=== PATIENT | female | born 1960 | race Caucasian/White ===

== ENCOUNTER → 2020-01-20 15:02 | Outpatient (BNVA) | payer OTHER, SELFPAY | PROVIDERS: PCP Hospitalist; Visit Provider Student in an Organized Health Care Education/Training Program | DX: Z76.89 Persons encountering health services in other specified circumstances (principal) ==

== ENCOUNTER → 2020-02-21 13:05 | Outpatient (BNVA) | payer OTHER, SELFPAY | PROVIDERS: PCP Hospitalist; Visit Provider Orthopaedic Surgery | DX: G56.02 Carpal tunnel syndrome, left upper limb (principal); G56.01 Carpal tunnel syndrome, right upper limb | CPT/HCPCS: 99202 ==

== ENCOUNTER 2020-02-29 10:34 | Outpatient (REF) | payer OTHER, SELFPAY ==
--- NOTE | 2020-02-29 13:47 | XR_ITS ---
EXAMINATION: XR SHOULDER, RIGHT CLINICAL INFORMATION: Right shoulder pain. COMPARISON: 09/21/2019 TECHNIQUE: Three views of the right shoulder. FINDINGS: There is no evidence of acute fracture or dislocation of the right shoulder. No evidence of calcific tendinitis. There is some irregularity and spurring seen about the site of insertion of the supraspinatus tendon on the humerus. The glenohumeral joint space is maintained. No widening of the coracoclavicular space is seen. No superior subluxation of the humeral head is identified. XR/XR shoulder RT min 2V IMPRESSION: No acute fracture, dislocation, or calcific tendinitis of the right shoulder. Spurring about the site of insertion of the supraspinatus tendon.
== END 2020-02-29 10:35 | disposition home or self-care (01) ==
LOC: HO.HOSX 10:34
PROVIDERS: Visit Provider Orthopaedic Surgery
DX: M25.511 Pain in right shoulder (principal); M54.12 Radiculopathy, cervical region
CPT/HCPCS: 73030; 99202; J1040

== ENCOUNTER 2020-03-14 12:35 | Day surgery (SDC) | payer OTHER, SELFPAY ==
[2020-03-07 14:59] VITALS: BMI 29.2
[2020-03-14 13:52] VITALS: BP 155/79; PULSE 75; RESP 16; TEMP 37.8; O2SAT 97
--- NOTE | 2020-03-14 13:55 | PC.NURSE ---
son speaks bengali and translating for patient with md morales by the bedside.
[2020-03-14 14:24] LABS: Glucose, Whole Blood 113 mg/dL (60-115)
--- NOTE | 2020-03-14 14:31 | MHC.SHP ---
Pre-Procedural Eval Section B Chief Complaint: carpal tunnel syndrome,right Allergies: Allergies Allergy/AdvReac Type Severity Reaction Status Date / Time seafood Allergy Unknown rash, GI Verified 03/07/20 14:58 upset losartan AdvReac Severe blurry Verified 03/07/20 14:58 vision, muscle pain. Plan I have reviewed the history and physical and performed a pertinent physical examination on my patient. No changes have occurred unless specified.
--- NOTE | 2020-03-14 14:31 | W.PM.OPN ---
Operative Note Operative Note Date of Service: 03/14/20 Narrative: Preop diagnosis: 1. Right Carpal tunnel syndrome Postop diagnosis: 1. Right Carpal tunnel syndrome Procedure: 1. Right Carpal tunnel release Surgeon: Chanell Yousif MD Anesthesia: local block using 1% lidocaine with epinephrine Findings: Thickened transverse carpal ligament. EBL: Less than 5 mL Specimens: None Complications: None Disposition: Brought to recovery room in stable condition Plan: Follow-up for 7-10 days for wound check and suture removal Indications: The patient is 59 years old, with right carpal tunnel syndrome that has been unresponsive to nonoperative management. The risks and benefits of operative treatment including but not limited to risk of damage to blood vessels, nerves, tendons, infection, persistent pain, persistent symptoms, or possible need for additional surgery were discussed with the patient and the patient wishes to proceed with surgery. Procedure: Once consent was obtained a local block was performed using a combination of 1% lidocaine with epinephrine. The patient was then brought back to the operating suite and placed on the operative table in supine position. A tourniquet was applied to the proximal aspect of the right upper extremity and the limb was prepped and draped in a standard surgical fashion. Once assured that we had a good block, a 1.5 cm longitudinal incision was made centered over the right carpal tunnel. The incision was made through the skin to the subcutaneous tissues using a #15 blade. Dissection was made down to the level of the transverse carpal ligament with care being taken to protect the palmar cutaneous nerve. Once the transverse carpal ligament was clearly visualized, a longitudinal incision was made in the transverse carpal ligament 1st using a #15 blade, then using tenotomy scissors under direct visualization. Care was taken to look for and protect the motor branch of the median nerve when seen in this area. Once satisfied with our carpal tunnel release the wound was copiously irrigated with normal saline and hemostasis was obtained with a brief period of local pressure. The skin edges were reapproximated with some 5.0 nylon suture material and a sterile dressing was applied. The patient appears to have tolerated the procedure well and with no complications. All digits were well vascularized at the conclusion of the case.
[2020-03-14 15:12] VITALS: BP 138/68; PULSE 75; RESP 17; TEMP 37.1; O2SAT 98
== END 2020-03-14 16:20 | disposition home or self-care (01) ==
PROVIDERS: PCP Hospitalist; Visit Provider Orthopaedic Surgery
PROC: (CPT 64721; principal; 2020-03-14 14:10)
DX: G56.01 Carpal tunnel syndrome, right upper limb (principal); E11.9 Type 2 diabetes mellitus without complications; I10 Essential (primary) hypertension; R76.0 Raised antibody titer; Z79.84 Long term (current) use of oral hypoglycemic drugs; Z79.899 Other long term (current) drug therapy; Z88.8 Allergy status to other drugs, medicaments and biological substances
CPT/HCPCS: 64721; 82947

== ENCOUNTER → 2020-03-26 13:39 | Outpatient (BNVA) | payer OTHER, SELFPAY | PROVIDERS: PCP Hospitalist; Visit Provider Orthopaedic Surgery | DX: G56.01 Carpal tunnel syndrome, right upper limb (principal); G56.02 Carpal tunnel syndrome, left upper limb | CPT/HCPCS: 99202; 99212 ==

== ENCOUNTER 2020-11-07 10:57 | Outpatient (REF) | payer OTHER, SELFPAY ==
[2020-11-07 14:00] LABS: Blood Urea Nitrogen 10 mg/dL (9-16); Estimated Glomerular Filt Rate > 60
== END 2020-11-07 10:58 | disposition home or self-care (01) ==
LOC: HO.WFDLDS 10:57
PROVIDERS: Visit Provider Psychiatry & Neurology Neurology
DX: G62.9 Polyneuropathy, unspecified (principal); M54.16 Radiculopathy, lumbar region
CPT/HCPCS: 36415; 82565; 84520

== ENCOUNTER 2020-11-09 13:20 | Outpatient (REF) | payer OTHER, SELFPAY ==
--- NOTE | ~2020-11-09 | MR_ITS ---
EXAMINATION: MR LUMBAR SPINE WITHOUT AND WITH CONTRAST CLINICAL INFORMATION: 60-year-old with lumbar radiculopathy. COMPARISON: None TECHNIQUE: MRI of the lumbar spine was obtained using routine sequences with and without contrast. Intravenous contrast: Gadavist 8 mL. FINDINGS: Coronal Alignment: There is lower lumbar levocurvature centered at L4-L5 and dextrocurvature centered at L2. Sagittal Alignment: There is reversal of the normal lordotic curvature centered at the L2-L3 level. There is 4 mm of retrolisthesis at L4-L5 and trace retrolisthesis at L3-L4 and L5-S1. Lumbosacral Junction: Normal. Vertebral Bodies: There is mild chronic loss of height of the L5 vertebral body posteriorly and slight chronic loss of height of the anterior aspect of the L4 vertebral body. Disc Spaces and Endplates: Abiqvugk-eg-wmqzec disc space height loss at L5-S1 is noted with disc desiccation and moderate disc space height loss asymmetric to the right at L4-L5 with disc desiccation. Mild degrees of disc space height loss are noted at L3-L4, L2-L3 and L1-L2 with disc desiccation. There are lwru-ss-rbyvxalz degrees of anterolateral spondylosis throughout the lumbar spine most prominent at L4-L5 and L5-S1. Spinal Canal: No abnormal developmental findings. Bone Marrow: Possible limbus vertebra at the anterosuperior corner of L3 with type I degenerative marrow signal changes along the superior endplate of L3 anteriorly. Mild type I and type II degenerative marrow signal changes seen along the endplates at L4-L5 and L5-S1. Conus Medullaris: Terminates at L1. Morphology and signal is normal. No abnormal enhancement. Intradural Nerve Roots: No abnormal intradural enhancement. Within normal limits. L5-S1: Broad-based posterolateral disc osteophyte complex, with moderate bilateral facet arthropathy with no significant spinal canal stenosis. There is adpfpchj-vv-nogpqg right-sided and mtmp-mf-rcnrockx left-sided neuroforaminal stenosis, with right L5 nerve root impingement. L4-L5: There is retrolisthesis at this level as described above, with broad-based central disc protrusion superimposed on posterolateral disc osteophyte complex and postoperative changes on the right consistent with a previous right-sided hemilaminectomy. Ligamentum flavum thickening is noted with mild left-sided and moderate right-sided facet hypertrophic degenerative change, with synovial enhancement corresponding to the facet joints. There is moderate central spinal canal stenosis and crowding of the subarticular zones, right more than left. There is severe right-sided and awfo-mu-fsqxrhup left-sided neuroforaminal stenosis, with right L4 nerve root impingement. L3-L4: There is disc bulging and a left-sided foraminal/extraforaminal disc herniation with moderate bilateral facet arthropathy and evidence of a previous right-sided hemilaminectomy with absence of the right ligamentum flavum. There is ligamentum flavum thickening on the left. No significant central spinal canal stenosis. There is mglq-xi-vefcfesr narrowing of the left subarticular zone and there is zjzp-uq-vfowiard bilateral neuroforaminal stenosis without definite neural impingement. L2-L3: Mild diffuse disc bulging is noted with mild flattening of the dural sac slightly asymmetric to the left with slight narrowing of the left subarticular zone without significant central spinal canal stenosis. There is cbln-bv-hahokyvq bilateral facet arthropathy without significant neuroforaminal stenosis. L1-L2: Small central to right central disc osteophyte complex noted. Minor facet arthrosis on the left. No significant canal or neuroforaminal stenosis. Paraspinal/Retroperitoneal: The paravertebral soft tissues are unremarkable. MR/MR lumbar spine wo/w con IMPRESSION: 1. S-shaped mid to lower lumbar scoliosis as described above with lordotic reversal centered at L2-L3 and mild degrees of retrolisthesis between L3-L4 and L5-S1 inclusive, most apparent at L4-L5. 2. Multilevel discogenic degenerative changes, spondylosis, disc bulging and disc osteophyte complexes with multilevel bilateral DJD and postsurgical changes at L4-L5 and L3-L4 as detailed above. 3. Moderate spinal canal stenosis at L4-L5. 4. Severe right-sided neuroforaminal stenosis at L4-L5 and L5-S1 with right L4 and L5 nerve root impingement. Lesser degrees of neuroforaminal stenosis on the left at L4-L5 and L5-S1 and bilaterally at L3-L4 as detailed above. 5. No abnormal intradural or leptomeningeal enhancement. Mild concentric epidural scar tissue at L4-L5.
== END 2020-11-09 13:21 | disposition home or self-care (01) ==
LOC: HO.MRI 13:20
PROVIDERS: Visit Provider Psychiatry & Neurology Neurology
DX: M54.16 Radiculopathy, lumbar region (principal)
CPT/HCPCS: 72158; A9585

== ENCOUNTER 2020-12-31 09:46 | Outpatient (REF) | payer OTHER, SELFPAY ==
[2020-12-31 12:14] LABS: Estimated Average Glucose 146 mg/dL; Hemoglobin A1c % 6.7 %
[2020-12-31 12:25] LABS: TSH reflex Free T4 0.91 uIU/mL (0.32-4.0)
[2020-12-31 12:41] LABS: Alanine Aminotransferase 106 U/L (0-31); Albumin Level 4.4 g/dL (3.5-5.0); Alkaline Phosphatase 103 U/L (39-117); Anion Gap 9 (12-20); Aspartate Amino Transferase 70 U/L (5-31); Bilirubin Total 0.4 mg/dL (0.0-1.0); Blood Urea Nitrogen 13 mg/dL (9-16); Calcium 9.5 mg/dL (8.4-10.2); Carbon Dioxide 27 mmol/L (22-29); Chloride 107 mmol/L (96-108); Cholesterol 206 mg/dL; Estimated Glomerular Filt Rate > 60; Glucose Fasting 143 mg/dL (60-99); HDL Cholesterol 47 mg/dL; LDL Cholesterol Calculated 139 mg/dl; Potassium 4.2 mmol/L (3.3-5.1); Sodium 139 mmol/L (135-145); Total Protein 6.9 g/dL (6.5-8.0); Triglycerides 100 mg/dL
== END 2020-12-31 09:47 | disposition home or self-care (01) ==
LOC: HO.WFDLDS 09:46
PROVIDERS: Visit Provider Family Medicine
DX: Z00.00 Encounter for general adult medical examination without abnormal findings (principal); E11.9 Type 2 diabetes mellitus without complications
CPT/HCPCS: 36415; 80053; 80061; 83036; 84443

== ENCOUNTER 2021-02-27 11:33 | Outpatient (REF) | payer OTHER, SELFPAY ==
[2021-02-27 13:51] LABS: Alanine Aminotransferase 77 U/L (0-31); Albumin Level 4.2 g/dL (3.5-5.0); Alkaline Phosphatase 102 U/L (39-117); Anion Gap 11 (12-20); Aspartate Amino Transferase 47 U/L (5-31); Bilirubin Total < 0.2 mg/dL (0.0-1.0); Blood Urea Nitrogen 11 mg/dL (9-16); Calcium 9.9 mg/dL (8.4-10.2); Carbon Dioxide 27 mmol/L (22-29); Chloride 107 mmol/L (96-108); Estimated Glomerular Filt Rate > 60; Glucose Random 112 mg/dL (60-115); Potassium 4.1 mmol/L (3.3-5.1); Sodium 141 mmol/L (135-145); Total Protein 6.9 g/dL (6.5-8.0)
== END 2021-02-27 11:34 | disposition home or self-care (01) ==
LOC: HO.WFDLDS 11:33
PROVIDERS: Visit Provider Family Medicine
DX: R74.8 Abnormal levels of other serum enzymes (principal)
CPT/HCPCS: 36415; 80053

== ENCOUNTER 2021-03-11 11:34 | Outpatient (REF) | payer OTHER, SELFPAY ==
--- NOTE | ~2021-03-11 | US_ITS ---
EXAMINATION: US ABDOMEN LIMITED WITH LIVER ELASTOGRAPHY CLINICAL INFORMATION: Right upper quadrant pain. COMPARISON: None. TECHNIQUE: Real-time imaging of the abdominal viscera. Noninvasive ultrasound liver fibrosis assessment is performed using Pratik ElastPQ point quantification shear wave elastography (2D-SWE) with a C5-2 MHz transducer. Multiple elastography samples are obtained. FINDINGS: PANCREAS: Not well visualized due to bowel gas LIVER: Liver echotexture is increased. The liver is normal in contour. The liver is upper normal in size.. No focal lesion or intrahepatic biliary duct dilatation. The right lobe measures 17.4 cm in length. The left lobe measures 9.5 cm in length. Portal flow is normal/hepatopedal. Shear wave liver elastography median stiffness is 2.1 m/s (reference: normal median stiffness is 1.3 m/s or less). IQR/median stiffness to assess sampling precision is 0.2 (reference: good quality data set is IQR/median stiffness of 0.15 or less). GALLBLADDER: Normal. The gallbladder is physiologically distended without evidence of stones, sludge, polyps, wall thickening or pericholecystic fluid. COMMON BILE DUCT: Normal in caliber measuring 0.6 cm in diameter. RIGHT KIDNEY: Normal. No hydronephrosis. No renal calculi or focal parenchymal lesions. The kidney measures 12 cm in maximum dimension. FREE FLUID: None. US/US abdomen dsouza w elastography IMPRESSION: 1. Impression: Echogenic liver. Limited visualization of the pancreas. 2. Liver elastography: Limited due to sampling error. Liver stiffness is elevated and cannot exclude liver disease. REFERENCE: Society of Radiologists in Ultrasound Liver Stiffness Thresholds (2020): LIVER STIFFNESS THRESHOLDS: *Liver Stiffness equal or less than 1.3 m/s: High probability of being normal. *Liver Stiffness less than 1.7 m/s: In the absence of other known clinical signs, rules out compensated advanced chronic liver disease. *Liver Stiffness 1.7-2.1 m/s: Suggestive of compensated advanced chronic liver disease but need further test for confirmation. *Liver Stiffness over 2.1 m/s: Rules in compensated advanced chronic liver disease. *Liver Stiffness over 2.4 m/s: Suggestive of clinically significant portal hypertension. QUALITY OF DATA SET: *IQR/Median value equal or less than 0.15 implies a quality data set. *IQR/Median value over 0.15 implies a poor quality data set. SIGNIFICANT CHANGE FROM PRIOR EXAM: Significant change if liver stiffness measurement is 10% or greater from prior exam. OTHER CONSIDERATIONS: The stage of liver fibrosis may be overestimated in the setting of acute hepatitis, liver inflammation, elevated liver function tests, hepatic vascular congestion, obstructive cholestasis, non-fasting state, and infiltrative diseases such as amyloidosis and lymphoma. In some patients with NAFLD, the liver stiffness thresholds for compensated advanced chronic liver disease may be lower. In causes other than viral hepatitis and NAFLD, liver stiffness thresholds are not well established.
== END 2021-03-11 11:35 | disposition home or self-care (01) ==
LOC: HO.US 11:34
PROVIDERS: PCP Family Medicine; Visit Provider Family Medicine
DX: R10.11 Right upper quadrant pain (principal); R74.8 Abnormal levels of other serum enzymes
CPT/HCPCS: 76705; 76981

== ENCOUNTER 2021-05-13 14:06 | Outpatient (REF) | payer OTHER, SELFPAY ==
[2021-05-13 16:41] LABS: Blood Urea Nitrogen 11 mg/dL (9-16); Estimated Glomerular Filt Rate > 60
== END 2021-05-13 14:07 | disposition home or self-care (01) ==
LOC: HO.LAB 14:06
PROVIDERS: PCP Family Medicine; Referring Provider Family Medicine; Visit Provider Surgery
DX: R10.9 Unspecified abdominal pain (principal); G89.29 Other chronic pain
CPT/HCPCS: 36415; 82565; 84520; 99202

== ENCOUNTER 2021-05-21 09:52 | Outpatient (REF) | payer OTHER, SELFPAY ==
--- NOTE | ~2021-05-21 | CT_ITS ---
EXAMINATION: CT ABDOMEN AND PELVIS WITH CONTRAST CLINICAL INFORMATION: Abdominal pain COMPARISON: Previous abdominal ultrasound February 2021 TECHNIQUE: Multidetector volumetric images were obtained from the superior aspect of the liver through the pubic symphysis following administration 85 mL of Omnipaque 350 intravenous contrast. Sagittal and coronal reformatted images were obtained on the technologist's workstation. Oral contrast: Yes This CT examination was performed using dose optimization techniques as appropriate, variously including the following: *Automated exposure control *Adjustment of mA and/or kV according to patient size (this includes techniques or standardized protocols for targeted exams where dose is matched to indication/reason for exam; i.e. extremities or head) *Use of iterative reconstruction technique DLP: 434 mGy-cm FINDINGS: LUNG BASES: The visualized lung bases are unremarkable. LIVER, GALLBLADDER, AND BILIARY TREE: The liver is low in attenuation suggestive of fatty infiltration. No focal hepatic lesion or biliary ductal dilatation is present. The gallbladder is unremarkable with no evidence of radiopaque gallstones, gallbladder wall thickening, or obvious pericholecystic inflammatory changes. PANCREAS: Unremarkable. SPLEEN: Unremarkable. ADRENAL GLANDS: Unremarkable. KIDNEYS AND URETERS: The kidneys are normal in size, shape, and attenuation. No hydronephrosis, hydroureter, or calculi seen. No perinephric stranding. BLADDER: Unremarkable. GASTROINTESTINAL TRACT: There is a visualization of the distal small bowel. No caliber change is seen and this probably represents a cyst small bowel stasis. There is stool throughout the colon. There are no dilated loops of bowel to suggest obstruction. Are small radiopaque densities in the appendix and may represent appendicoliths. The appendix is otherwise normal. ABDOMINAL WALL: No significant hernia is appreciated. LYMPH NODES: Normal. VASCULAR: Unremarkable. PELVIC VISCERA: Unremarkable. OSSEOUS STRUCTURES: There are degenerative changes of the spine and mild scoliosis. CT/CT abdomen pelvis w con IMPRESSION: Small bowel stasis and stool throughout the colon suggestive of constipation. No caliber change to suggest obstruction. Fatty liver. Fleischner guidelines were followed.
[2021-05-21] MEDS: iohexoL 350 MG/ML 100 ML INFUS..BTL IV (11:39)
== END 2021-05-21 09:53 | disposition home or self-care (01) ==
LOC: HO.CT 09:52
PROVIDERS: Visit Provider Surgery
DX: R10.9 Unspecified abdominal pain (principal)
CPT/HCPCS: 74177; Q9967

== ENCOUNTER → 2021-07-03 13:24 | Outpatient (BNVA) | payer OTHER, SELFPAY | PROVIDERS: PCP Family Medicine; Referring Provider Family Medicine; Visit Provider Surgery | DX: R10.9 Unspecified abdominal pain (principal); G89.29 Other chronic pain | CPT/HCPCS: 99212 ==

== ENCOUNTER 2022-02-04 11:41 | Outpatient (REF) | payer OTHER, SELFPAY ==
--- NOTE | ~2022-02-04 | XR_ITS ---
EXAMINATION: XR KNEE, LEFT CLINICAL INFORMATION: Left knee pain COMPARISON: Radiographs 09/01/2018 TECHNIQUE: Four views of the left knee. FINDINGS: Medial compartment narrowing. Marginal osteophytes of all 3 compartments. No definite joint effusion. No acute abnormality. Overall, the appearance does not appear significantly changed. XR/XR knee LT 4V IMPRESSION: Moderate tricompartmental osteoarthritis, most severe in the medial compartment. No significant change.
== END 2022-02-04 11:42 | disposition home or self-care (01) ==
LOC: HO.XRAY 11:41
PROVIDERS: PCP Physical Medicine & Rehabilitation; Visit Provider Physical Medicine & Rehabilitation
DX: M25.562 Pain in left knee (principal)
CPT/HCPCS: 73564

== ENCOUNTER 2022-02-24 11:15 | Outpatient (REF) | payer OTHER, SELFPAY ==
[2022-02-24 14:00] LABS: MANUAL DIFF FLAG NO
[2022-02-24 14:09] LABS: Basophils Percent Auto 0.2 % (0-2); Eosinophils Absolute Auto 0.2 X10*3/uL (0.0-0.4); Eosinophils Percent Auto 2.3 % (0-4); Hematocrit 42.5 % (37.0-47.0); Hemoglobin 13.7 g/dl (12.0-16.0); Imm Gran Abs Auto 0.02 X10*3/uL (0.00-0.03); Imm Gran Pct Auto 0.2 % (0.0-0.4); Lymphocytes Absolute Auto 3.1 X10*3/uL (1.2-4.9); Lymphocytes Percent Auto 37.9 % (20-40); Mean Corpuscular HGB Conc 32.2 g/dl (31.0-35.0); Mean Corpuscular Hemoglobin 29.3 pg (27.0-33.0); Mean Corpuscular Volume 90.8 fL (80.0-98.0); Mean Platelet Volume 11.1 fL (9.4-12.3); Monocytes Absolute Auto 0.6 X10*3/uL (0.1-1.2); Monocytes Percent Auto 6.9 % (2-11); Neutrophils Absolute Auto 4.3 x10*3/uL (2.0-8.3); Neutrophils Percent Auto 52.5 % (45-73); Platelet Count 271 X10*3/uL (160-400); Red Blood Count 4.68 X10*6/uL (4.20-5.50); Red Cell Distribution Width 12.8 % (11.0-16.0); White Blood Count 8.2 X10*3/uL (4.8-10.8)
[2022-02-24 14:31] LABS: Alanine Aminotransferase 121 U/L (0-31); Albumin Level 4.5 g/dL (3.5-5.0); Alkaline Phosphatase 109 U/L (39-117); Anion Gap 14 (12-20); Aspartate Amino Transferase 70 U/L (5-31); Bilirubin Total 0.4 mg/dL (0.0-1.0); Blood Urea Nitrogen 9 mg/dL (9-16); Calcium 9.9 mg/dL (8.4-10.2); Carbon Dioxide 25 mmol/L (22-29); Chloride 106 mmol/L (96-108); Cholesterol 231 mg/dL; Estimated Glomerular Filt Rate > 60; Glucose Fasting 156 mg/dL (60-99); HDL Cholesterol 53 mg/dL; LDL Cholesterol Calculated 150 mg/dl; Rheumatoid Factor 159.2 IU/mL (<15.0); Sodium 141 mmol/L (135-145); Total Protein 7.2 g/dL (6.5-8.0); Triglycerides 142 mg/dL
[2022-02-24 14:39] LABS: TSH reflex Free T4 1.29 uIU/mL (0.32-4.0)
[2022-02-24 14:57] LABS: Erythrocyte Sedimentation Rate 11 MM/HR (0-20)
[2022-02-26 13:03] LABS: CRP High Sensitivity 2.8 mg/L
[2022-02-26 13:33] LABS: Anti Nuclear Antibody Screen NEGATIVE (NEGATIVE)
== END 2022-02-24 11:16 | disposition home or self-care (01) ==
LOC: HO.WFDLDS 11:15
PROVIDERS: Visit Provider Family Medicine
DX: Z00.00 Encounter for general adult medical examination without abnormal findings (principal); M79.643 Pain in unspecified hand; R21 Rash and other nonspecific skin eruption
CPT/HCPCS: 36415; 80053; 80061; 84443; 85025; 85652; 86038; 86039; 86141; 86431

== ENCOUNTER → 2022-04-11 10:13 | Outpatient (REF) | payer OTHER, SELFPAY ==
--- NOTE | 2022-04-11 10:16 | CA_ITS ---
Transthoracic Echocardiogram Patient (Last, First, Middle): Loni Rubalcava N Gender: Female Date of : 1960 Age: 61 Procedure Date: 04/11/2022 Procedure Type: Transthoracic Echocardiogram Location: OP Height: 160. cm Weight: 80.74 kg BSA: 1.84 m2 Heart Rate: 60 bpm BP: 130 / 75 mmHg Digital Imager: DARON Referring MD: Clifford Cowan MD Symptoms: R01.1 - Cardiac murmur, unspecified Study Quality: Fair ECG Rhythm: Sinus Conclusions: - The left ventricular systolic function is normal. The calculated ejection fraction is 57% by biplane method. - There is mild calcification of the aortic valve. - No obvious valvular pathology seen on this study. Findings Left Ventricle Normal left ventricular cavity size. There is normal left ventricular wall thickness. The left ventricular systolic function is normal. The calculated ejection fraction is 57% by biplane method. There is no evidence of regional wall motion abnormalities. Diastolic function is normal for age. Right Ventricle Normal right ventricular cavity size and systolic function. Atria Both atria are normal in size. Aortic Valve There is a normal trileaflet aortic valve. There is mild calcification of the aortic valve. There is no aortic valve stenosis. There is trace (trivial) aortic valve regurgitation. Mitral Valve There is mild mitral annular calcification. There is trace mitral valve regurgitation. There is no mitral valve stenosis. Pulmonic Valve The pulmonic valve is likely normal. Tricuspid Valve Normal tricuspid valve structure. There is trace tricuspid valve regurgitation. There is no evidence of pulmonary hypertension. Great Vessels The asc aorta is normal in size. Venous The inferior vena cava is normal in size and collapses greater than 50% with inspiration. Pericardium/Pleural There is a trivial pericardial effusion. Prior Study Comparison No prior study available for comparison. Recommendations, Care & Conclusions No obvious valvular pathology seen on this study. Measurements 2D Linear Measurements IVSd: 0.86 0.6-0.9/0.6-1.0 cm LVIDd: 4.71 3.9-5.3/4.2-5.9 cm LVIDd Index: 2.56 2.4-3.2/2.2-3.1 cm/m2 LVIDs: 2.81 2.0-3.6 cm LVPWd: 0.92 0.7-1.1 cm LA Diam: 3.80 2.7-3.8/3.0-4.0 cm LAIDs Index: 2.07 1.5-2.3 cm/m2 LV Mass: 176.15 67-162/88-224 g LV Mass Index: 95.74 43-95/49-115 g/m2 LVOT Diam: 1.80 3.0+(-)1.3 cm 2D Systolic Function EF 4C: 59.60 >55% EF 2C: 61.10 >55% EF BiP: 57.40 >55% Mitral Valve MV Pk E: 0.71 MV PK A: 0.82 MV Decel Time: 246.00 E/A: 0.90 E'Lateral: 9.36 E'Medial: 5.66 E/E' Med: 12.60 E/E' Lat: 7.60 PHT: 72.00 MVA PHT: 3.06 Decel [place]: 2.89 Aortic Valve AoV Pk José Luis: 1.62 AoV Mn José Luis: 1.05 AoV VTI: 0.37 AoV Pk Grad: 10.00 Aov Mn Grad: 6.00 CONTRERAS Cont.VTI: 1.93 LVOT LVOT Pk José Luis: 1.13 LVOT Mn José Luis: 0.76 LVOT VTI: 0.28 LVOT Pk Grad: 5.00 LVOT Mn Grad: 3.00 LVOT Diam: 1.80 LVOT Area: 2.54 Diastolic Function MV Pk E: 0.71 MV Pk A: 0.82 E/A: 0.90 E'Medial: 5.66 E/E' Med: 12.60 E' Laterial: 9.36 E/E' Lat: 7.60 Right Ventricle TAPSE (mm): 20.40 TVS' José Luis: 10.60 Tricuspid Valve TR Pk José Luis: 2.08 TR Pk Grad: 17.00 RA Press: 3.00 RVSP: 20.00 Great Vessels Aorta Sinus of Valsalva: 3.20 2.0-3.5 cm Ao Asc: 3.30 2.1-3.4 cm Pulmonary Valve PV Pk José Luis: 0.90 Peak PV Grad: 3.00 Updated in Other Vendor System with Status of Final Karlo Cuadra MD electronically signed on 04/13/2022 10:43:31 AM with status of Final
== END ==
LOC: HO.CARD 10:13
PROVIDERS: PCP Family Medicine; Visit Provider Family Medicine
DX: R01.1 Cardiac murmur, unspecified (principal)
CPT/HCPCS: 93306

== ENCOUNTER 2022-05-19 09:20 | Outpatient (REF) | payer OTHER, SELFPAY ==
--- NOTE | ~2022-05-19 | XR_ITS ---
EXAMINATION: XR LUMBOSACRAL SPINE WITH OBLIQUES CLINICAL INFORMATION: Lumbosacral spondylolisthesis. COMPARISON: Portions of the MRI lumbar spine dated 11/09/2020. TECHNIQUE: AP, both oblique, and lateral (neutral, flexion and extension) views of the lumbar spine. Lateral view of the lumbosacral junction. FINDINGS: There is bony demineralization. Vertebral body heights are normal. There is a mild thoracolumbar dextroscoliosis. At L2-L3, there is mild vacuum disc phenomenon. At L4-L5, there is rightward disc space narrowing. At L5-S1, there is marked degenerative disc disease, with disc space narrowing and a 5 mm retrolisthesis. No acute fracture or spondylolisthesis is seen. No spondylolysis defect is seen on the oblique views. There is no instability with flexion or extension. There is multi-level lumbar spondylosis and facet arthropathy. The paravertebral soft tissues are unremarkable. XR/XR lumbar spine 6V w bending IMPRESSION: 1. There is moderate degenerative disc disease at L2-L3 and L4-L5, and marked degenerative disc disease is seen at L5-S1. 2. No acute fracture or spondylolisthesis is seen. No spondylolysis defect is seen. There is no instability with flexion or extension. 3. There is a mild thoracolumbar dextroscoliosis. 4. There is multi-level moderate thoracic spondylosis and facet arthropathy.
== END 2022-05-19 09:21 | disposition home or self-care (01) ==
LOC: HO.XRAY 09:20
PROVIDERS: PCP Family Medicine; Visit Provider Internal Medicine
DX: M43.17 Spondylolisthesis, lumbosacral region (principal); M96.1 Postlaminectomy syndrome, not elsewhere classified; M48.061 Spinal stenosis, lumbar region without neurogenic claudication
CPT/HCPCS: 72114; 99202

== ENCOUNTER 2022-07-03 12:52 | Outpatient (REF) | payer OTHER, SELFPAY ==
--- NOTE | ~2022-07-03 | MR_ITS ---
EXAMINATION: MR LUMBAR SPINE WITHOUT AND WITH CONTRAST CLINICAL INFORMATION: Complete right foot drop. Worsening low back pain. Rule out recurrent herniation. COMPARISON: Lumbar spine MRI 11/09/2020. TECHNIQUE: MRI of the lumbar spine was obtained using routine sequences without and with intravenous contrast. A total of 8.5 mL Gadavist was intravenously administered. FINDINGS: The lumbar vertebral bodies maintain normal heights. There is mild retrolisthesis of L4 on L5. There is mild dextroscoliotic curvature in the upper lumbar spine and levoscoliotic curvature at the lumbosacral junction. There is severe disc height loss asymmetrically on the right at L4-L5 and L5-S1 related to the scoliotic curvature. There is marrow edema/stress response within the right-sided L5 pedicle. The distal spinal cord appears normal. The conus medullaris terminates normally at L1. There is no abnormal enhancement along the cauda equina nerve roots. The extraspinal soft tissues are within normal limits. SPINAL LEVELS: L1-L2: Mild disc bulging. No spinal canal or neural foraminal stenosis. L2-L3: Disc bulging with mild facet arthropathy. No spinal canal or neural foraminal stenosis. L3-L4: Right hemilaminectomy changes. No spinal canal stenosis. Moderate right and mild to moderate left neural foraminal stenosis. Right-sided neural foraminal narrowing appears mildly progressed but without definite foraminal nerve root compression. L4-L5: Posterior decompression changes, new from prior. No significant narrowing the spinal canal. Bulging disc narrows the subarticular zones. Unchanged severe right neural foraminal stenosis with significant compression of the exiting right L4 nerve root. Stable moderate to severe left neural foraminal stenosis. L5-S1: Disc bulging with severe facet arthropathy. No spinal canal stenosis. Severe right more than left neural foraminal stenosis with significant compression of the exiting right L5 nerve root and mild compression of the exiting left L5 nerve root. MR/MR lumbar spine wo/w con IMPRESSION: 1. At L3-L4 there is moderate right and mild to moderate left neural foraminal stenosis. Right-sided neural foraminal narrowing appears mildly progressed but without definite foraminal nerve root compression. 2. At L4-L5 there are posterior decompression changes. Unchanged severe right neural foraminal stenosis with significant compression of the exiting right L4 nerve root. Stable moderate to severe left neural foraminal stenosis. 3. At L5-S1 there is severe right more than left neural foraminal stenosis with significant compression of the exiting right L5 nerve root and mild compression of the exiting left L5 nerve root.
== END 2022-07-03 12:53 | disposition home or self-care (01) ==
LOC: HO.MRI 12:52
PROVIDERS: PCP Family Medicine; Visit Provider Psychiatry & Neurology Neurology
DX: M54.16 Radiculopathy, lumbar region (principal)
CPT/HCPCS: 72158; A9585

== ENCOUNTER 2022-08-28 10:30 | Outpatient (AMB) | payer OTHER, SELFPAY ==
--- NOTE | 2022-08-28 11:09 | MHC.PC.OV ---
Vital Signs 08/28/22 11:10 Height 5 ft 5 in Weight 175 lb BMI 29.1 BP 116/64 Blood Pressure Location Lt brachial Position Sitting Pulse 69 Pulse Source Pulse Oximeter Pulse Oximetry (%) 97 Oxygen Delivery Method Room Air Intake Visit Reasons: f/u diabetes Intake Note: Patient is here to follow up on diabetes. Allergies seafood Allergy (Unknown, Verified 08/28/22 11:13) rash, GI upset losartan Adverse Reaction (Severe, Verified 08/28/22 11:13) blurry vision, muscle pain. Medication List - Last Reconciled 08/28/22 by Clifford Cowan MD amitriptyline 50 mg PO BEDTIME 90 days amlodipine 5 mg PO DAILY amoxicillin 500 mg PO Q12H 10 days bisacodyl (Dulcolax (bisacodyl)) 10 mg SD DAILY PRN blood sugar diagnostic (FreeStyle Lite Strips) As directed celecoxib 200 mg PO DAILY diclofenac sodium 1% 2 grams topical QID 30 days gabapentin 600 mg PO TID ketotifen fumarate 0.025%(0.035%) (Alaway) 1 drp ophthalmic (eye) Q12H PRN 30 days metformin 500 mg PO BID 30 days miscellaneous medical supply Diabetic shoes. Daily As directed, 999 days/lifetime. Disp #1 pair miscellaneous medical supply Custom Right AFOy, daily As directed. 999 days/lifetime. Disp #1 omeprazole 40 mg PO DAILY sennosides-docusate sodium 8.6-50 mg (Laxative Stool Softener With Senna) 1 tab-cap PO BID 1 month simethicone (Gas Relief (simethicone)) 80 mg PO BID-QID PRN 30 days topiramate 25 mg PO DAILY triamcinolone acetonide 0.1% 1 appl topical BID 15 days valsartan 160 mg PO DAILY Tobacco use date assessed: 08/28/22 Dental Screening Dental Screen Date: 08/28/22 Did you have a dental visit in the last 12 months?: Yes Did you have a dental problem in the last 6 months where you did not have access to dental care?: No Was dental information given to patient?: No HPI f/u diabetes HPI Details 61 y/o female presents to f/u diabetes and hypertension. Had increased metformin to 500mg b.i.d. Last A1c 05/27/22 7.3%. A1c today 7/13/23 is 6.7%. [facility] Medical History Chronic abdominal pain Diabetes mellitus Elevated rheumatoid factor GERD (gastroesophageal reflux disease) HTN (hypertension) Plasma cell disorder Surgical History History of back surgery History of hand surgery No pertinent past surgical history Family History Father No problems noted. Mother CVD (cardiovascular disease) Diabetes Sister In good health Son In good health Daughter In good health Social History Housing: Apartment Are you a primary home care liaison to a significant other at home: No Do you presently have visiting nurse or other home services: No Alcohol intake: never Patient Tobacco Use Status: Never used Tobacco e-Cigarette/Vaping Use: Never Used Second Hand Smoke Exposure: No service: No Current occupational status: unemployed and disabled Current occupation: right handed Current occupational exposures/hazards: No Cognitive needs: No Hearing needs: No Vision needs: No Questionnaire Thrive Questionnaire Date Thrive assessed: 08/24/20 ALEXA-7 AMB Questionnaire ALEXA-7 Date ALEXA - 7 assessed: 11/21/21 Source: Developed by Drs. Kang West, Rebecca Griffith, Efrain Allison and colleagues, with an educational lynne from [employer]. Review of Systems Const Denies chills, Denies fatigue, Denies fever(s), Denies headache(s) and Denies weakness ENT Denies dizziness and Denies headache(s) Card Denies chest pain, Denies lightheadedness, Denies dyspnea and Denies other (Palpitations) Resp Denies cough, Denies dyspnea, Denies wheezing and Denies other ( shortness of breath) Musc Denies numbness and Denies tingling Neuro Denies dizziness, Denies headache(s), Denies numbness, Denies tingling, Denies paresthesias and Denies weakness Psych Denies anxiety and Denies depression Endo Denies fatigue Aller/Immun Denies wheezing Physical exam (Primary Care) Vital Signs: Last Vital Signs Pulse 69 08/28/22 11:10 BP 116/64 08/28/22 11:10 Pulse Ox 97 08/28/22 11:10 Oxygen Delivery Method Room Air 08/28/22 11:10 BMI result Body Mass Index 29.1 Tobacco/Smoking Status: Tobacco use Status Tobacco use date assessed 08/28/22 08/28/22 11:17 Patient Tobacco Use Status Never used Tobacco 08/28/22 11:12 e-Cigarette/Vaping Use Never Used 08/28/22 11:12 Thrive Assessment: Date of Thrive Assessment Date Thrive assessed 08/24/20 08/28/22 11:12 Const General: no acute distress and well developed Nutritional Appearance: well nourished Orientation/consciousness: patient oriented x3 HENMT Other: Erythema and probable infection of L ear canal Head: Yes normocephalic and Yes atraumatic Eyes General: appearance normal, both eyes and all related structures Pupils: Equal, round and reactive pupils present EOM: EOMs intact bilaterally Resp Effort & Inspection: normal respiratory effort Auscultation: clear to auscultation bilaterally Cardio Rate: regular rate Rhythm: regular rhythm Heart sounds: S1 normal heart sound present, S2 normal heart sound present, no gallops, no murmurs and no rubs Neuro General: patient oriented x3 and gait normal Cranial nerves: Yes Equal, round and reactive pupils present Psych Affect: normal affect Assessment and Plan Assessment & Plan (1) Diabetes type 2, controlled: Code(s): E11.9 - Type 2 diabetes mellitus without complications Qualifiers: Diabetes mellitus complication status: without complication 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 dosing. Goal is less than 7.0% Continue current medication regimen Continue diabetic diet (2) Lumbar spinal stenosis: Code(s): M48.061 - Spinal stenosis, lumbar region without neurogenic claudication Plan: Ongoing low back pain. Recent MRI shows some stenosis is at L4-L5 She is seeing pain management and they have given her options including steroid injections, spinal stimulator or consideration a fusion We reviewed these together as she has been apprehensive to consider any of these. May consider steroid injections or spinal stimulator; she will discuss with pain management. (3) Hypertension, essential: Code(s): I10 - Essential (primary) hypertension Plan: Blood pressure is controlled. Goal is less than 140/90 Continue current medication (4) Left ear pain: Code(s): H92.02 - Otalgia, left ear Plan: Recurrent left ear pain. She does have erythema and probable infection of left ear canal at this point though previously she did not. 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
[2022-08-28 11:10] VITALS: BP 116/64; PULSE 69; O2SAT 97; BMI 29.1
== END 2022-08-28 12:09 | disposition home or self-care (01) ==
PROVIDERS: Visit Provider Family Medicine
DX: E11.9 Type 2 diabetes mellitus without complications (principal); M48.061 Spinal stenosis, lumbar region without neurogenic claudication; I10 Essential (primary) hypertension; H92.02 Otalgia, left ear; Z13.9 Encounter for screening, unspecified
CPT/HCPCS: 83036; 99214

== ENCOUNTER 2022-10-22 10:59 | Outpatient (REF) | payer OTHER, SELFPAY ==
[2022-10-22 18:00] LABS: CT PCR NOT DETECTED (Not Detect.); NG PCR NOT DETECTED (Not Detect.)
[2022-10-23 12:08] LABS: BV Int Neg Control Negative (Negative); BV Int Pos Control Positive (Positive)
[2022-10-29 05:28] LABS: HPV 16 RNA NOT DETECTED (NOT DETECTED); HPV mRNA E6/E7 rflx Detected (Not Detected)
== END 2022-10-22 11:00 | disposition home or self-care (01) ==
LOC: HO.LNP 10:59
PROVIDERS: PCP Family Medicine; Visit Provider Advanced Practice Midwife
DX: Z01.419 Encounter for gynecological examination (general) (routine) without abnormal findings (principal); N89.8 Other specified noninflammatory disorders of vagina; N95.1 Menopausal and female climacteric states; Z79.899 Other long term (current) drug therapy
CPT/HCPCS: 0353U; 87480; 87510; 87624; 87625; 87660; 88142

== ENCOUNTER 2022-10-22 10:59 | Outpatient (AMB) | payer OTHER, SELFPAY ==
--- NOTE | 2022-10-22 11:04 | A.OFFVIS_ITS ---
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 Medication List - Last Reconciled 10/22/22 by Carly Hollingsworth CNM amitriptyline 50 mg PO BEDTIME 90 days amlodipine 5 mg PO DAILY baclofen 10 mg PO DAILY bisacodyl (Dulcolax (bisacodyl)) 10 mg [place] DAILY PRN blood sugar diagnostic (FreeStyle Lite Strips) As directed celecoxib 200 mg PO DAILY diclofenac sodium 1% 2 grams topical QID 30 days gabapentin 600 mg PO TID ketotifen fumarate 0.025%(0.035%) (Alaway) 1 drp ophthalmic (eye) Q12H PRN 30 days metformin 500 mg PO BID 30 days miscellaneous medical supply Diabetic shoes. Daily As directed, 999 days/lifetime. Disp #1 pair miscellaneous medical supply Custom Right AFOy, daily As directed. 999 days/lifetime. 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 She is having some vaginal discharge. She is here with her daughter and is speaking through her but we are awaiting the official translation in Albanian available on the tablet. When Albanian translation was available with the tablet the patient said that she had had a vaginal discharge but it was months ago and it is not there now and her doctor had given her 2 pills to take and they made it all better. She says she is not having any vaginal symptoms or itching or discharge or anything right now. She has not had a period in about 12 years. She is not sexually active now or has not been in a long time because her is in [place] and she is here. She says her diabetes more is more less controlled.. She knows that her blood pressure is high because when it was high previously she would take 2 blood pressure pills instead of the 1 and therefore she ran out of the prescription and now they will not refill the prescription anymore for the medicine that made her blood pressure come down. I asked her to stop at her primary care doctor's office in [place] on the way home and let them know her situation with having run out of the blood pressure medicine and see if they would be able to come up with an alternative medication solution. Additionally her blood pressure was repeated at the end of the visit and it had come down substantially to 140/90. She said she had her mammogram last year and she did get a letter to schedule another. [facility] Medical History Chronic abdominal pain Diabetes mellitus Elevated rheumatoid factor GERD (gastroesophageal reflux disease) HTN (hypertension) Plasma cell disorder Surgical History History of back surgery History of hand surgery No pertinent past surgical history Family History Father No problems noted. Mother CVD (cardiovascular disease) Diabetes Sister In good health Son In good health Daughter In good health Social History Housing: Apartment Are you a primary child day care teacher to a significant other at home: No Do you presently have visiting nurse or other home services: No Alcohol intake: never Patient Tobacco Use Status: Never used Tobacco e-Cigarette/Vaping Use: Never Used Second Hand Smoke Exposure: No service: No Current occupational status: unemployed and disabled Current occupation: right handed Current occupational exposures/hazards: No Cognitive needs: No Hearing needs: No Vision needs: No Female Reproductive History Menstrual Menopause type: natural Total pregnancies: 9 Full term: 7 Number of Living Children: 7 Ab spontaneous: 2 Date of Mammogram: 11/22/21 (Birad 1) Physical Exam Vital Signs: Last Vital Signs BP 182/90 H 10/22/22 11:05 BMI result Body Mass Index 29.6 Const Other: Patient is is stooped forward and does use a cane. She is wearing supportive stockings that are knee-high General: healthy appearing, comfortable, no acute distress, well developed and alert Nutritional Appearance: average body habitus Orientation/consciousness: patient oriented x3 Limitations: no limitations HEENT Head: Yes normocephalic Neck Neck: Yes normal visual inspection Chest Chest palpation & inspection: normal inspection of the chest Breast/axilla inspection: normal inspection of the breasts and normal inspection of the axillae Breast/axilla palpation: normal palpation of the breasts and normal palpation of the axillae Resp Effort & Inspection: normal respiratory effort GI Inspection: Yes normal to inspection, No Abdominal wall edema and No distended Palpation (GI): Soft to palpation and nontender Other: Vagina is pink and moist cervix is somewhat flattened against the apex of the vagina. Uterus is small nontender firm mobile. Patient does have a good tone with Kegel no adnexal tenderness. No current evidence of vaginal discharge or yeast or other infection. General: Yes bladder normal to palpation External Female Exam: normal external appearance and normal appearance of the urethra Speculum Exam - Vagina: normal appearance of the vagina, normal palpation and normal vaginal discharge Speculum Exam - Cervix: normal appearance of the cervix, normal palpation and nontender Bimanual exam- vagina & uterus: normal bimanual exam, normal palpation, uterine size normal, bladder normal to palpation, consistency normal, normal palpation, uterine mobility normal, uterine shape normal, No Cervical tenderness present, non-tender and no cervical motion tenderness Bimanual Exam- Adnexa, other: normal adnexae, no masses, normal and No adnexal tenderness Neuro General: patient oriented x3 Assessment & Plan Assessment & Plan (1) Women's annual routine gynecological examination: Code(s): Z01.419 - Encounter for gynecological examination (general) (routine) without abnormal findings (2) Vaginal discharge: Code(s): N89.8 - Other specified noninflammatory disorders of vagina (3) Cervical cancer screening: Code(s): Z12.4 - Encounter for screening for malignant neoplasm of cervix (4) Breast cancer screening by mammogram: Code(s): Z12.31 - Encounter for screening mammogram for malignant neoplasm of breast (5) Perimenopause: Code(s): N95.1 - Menopausal and female climacteric states Plan See [facility] for details I did ask her to stop by her primary care doctor's office to discuss the fact that she has been out of her blood pressure medicine and or at least 1 of them and if there is another solution to tide her over until she is able to get a refill in November. In addition she is going to schedule her mammogram. I did the Pap smear and as well because of her history of vaginal discharge I did testing for GC chlamydia trich BV and yeast those do not see evidence of anything today at the visit. These were done mostly as a rule out. I did tell her that if this Pap smear is negative she will not need another 1 because we stop doing Pap smears at age 65 and they will be every 5 years at this time. Orders: Orders Bacterial Vaginosis Panel Today N89.8 - Other specified noninflammatory disorders of vagina CT NG by PCR Today N89.8 - Other specified noninflammatory disorders of vagina Pap Smear Today Z01.419 - Encounter for gynecological examination (general) (routine) without abnormal findings, Z12.4 - Encounter for screening for malignant neoplasm of cervix Coding Level of Care Code New Pt Prev Care 40-64y(16838) Diagnoses Women's annual routine gynecological examination Z01.419 Vaginal discharge N89.8 Cervical cancer screening Z12.4 Breast cancer screening by mammogram Z12.31 Perimenopause N95.1
[2022-10-22 11:05] VITALS: BP 182/90; BMI 29.6
[2022-10-22 12:31] VITALS: BP 144/90
== END 2022-10-22 12:34 | disposition home or self-care (01) ==
PROVIDERS: PCP Family Medicine; Visit Provider Advanced Practice Midwife
DX: Z01.419 Encounter for gynecological examination (general) (routine) without abnormal findings (principal); N89.8 Other specified noninflammatory disorders of vagina; Z12.4 Encounter for screening for malignant neoplasm of cervix; Z12.31 Encounter for screening mammogram for malignant neoplasm of breast; N95.1 Menopausal and female climacteric states
CPT/HCPCS: 99386

== ENCOUNTER 2022-10-22 12:23 | Outpatient (REF) | payer OTHER, SELFPAY | END 2022-10-22 12:24 | disposition home or self-care (01) | LOC: HO.LAB 12:23 | PROVIDERS: Visit Provider Advanced Practice Midwife | DX: Z13.89 Encounter for screening for other disorder (principal) ==

== ENCOUNTER 2022-10-31 10:15 | Outpatient (AMB) | payer OTHER, SELFPAY ==
--- NOTE | 2022-10-31 10:21 | A.OFFPC_ITS ---
Vital Signs 10/31/22 10:22 Height 5 ft 5 in Weight 177 lb 8 oz BMI 29.5 BP 126/78 Blood Pressure Location Lt brachial Position Sitting Respiration 12 Pulse 73 Pulse Source Pulse Oximeter Temp 97.6 F Temp Source Temporal Artery Scan Pulse Oximetry (%) 99 Oxygen Delivery Method Room Air Intake Visit Reasons: Pool, High BP, 10/24 Intake Note: Patient would like to raise the dose of her Amlodipine due to patient feeling like 5MG is not doing enough for her. Patient states that when she takes one pill she still doesn't feel well but when she takes 2 she feels better. Patient states that she has been experiencing pain in right eye that is followed by headaches. Truck Rental Manager Required: Yes Truck Rental Manager Name: Debbie (daughter) Accompanied by: Daughter Allergies seafood Allergy (Unknown, Verified 10/31/22 10:28) rash, GI upset losartan Adverse Reaction (Severe, Verified 10/22/22 11:12) blurry vision, muscle pain. Tobacco use date assessed: 08/28/22 Dental Screening Dental Screen Date: 10/31/22 Did you have a dental visit in the last 12 months?: No Did you have a dental problem in the last 6 months where you did not have access to dental care?: No Was dental information given to patient?: Yes HPI Pool, High BP, 10/24 HPI Details 62 y/o female presents to f/u Yrn Khan t 10/24/22 for high BP. Blood pressure had been 170/90 and had been having complaints of dizziness and headaches. Chest x-ray was fine. Labs were fine. CT scan did showed some concern for normal pressure hydrocephalus. Blood pressure today 126/78. She is on valsartan 160mg and amlodipine 5mg daily. [facility] Medical History Chronic abdominal pain Plasma cell disorder Diabetes mellitus GERD (gastroesophageal reflux disease) HTN (hypertension) Elevated rheumatoid factor Surgical History History of hand surgery History of back surgery No pertinent past surgical history Family History Father No problems noted. Mother CVD (cardiovascular disease) Diabetes Sister In good health Son In good health Daughter In good health Social History Housing: Apartment Are you a primary home care companion to a significant other at home: No Do you presently have visiting nurse or other home services: No Alcohol intake: never Patient Tobacco Use Status: Never used Tobacco e-Cigarette/Vaping Use: Never Used Second Hand Smoke Exposure: No service: No Current occupational status: unemployed and disabled Current occupation: right handed Current occupational exposures/hazards: No Cognitive needs: No Hearing needs: No Vision needs: Yes Questionnaire Thrive Questionnaire Date Thrive assessed: 08/24/20 ALEXA-7 AMB Questionnaire ALEXA-7 Date ALEXA - 7 assessed: 11/21/21 Source: Developed by Drs. Kang West, Rebecca Griffith, Efrain Allison and colleagues, with an educational lynne from [employer]. Physical exam (Primary Care) Vital Signs: Last Vital Signs Temp 97.6 F 10/31/22 10:22 Pulse 73 10/31/22 10:22 Resp 12 10/31/22 10:22 BP 126/78 10/31/22 10:22 Pulse Ox 99 10/31/22 10:22 Oxygen Delivery Method Room Air 10/31/22 10:22 BMI result Body Mass Index 29.5 Tobacco/Smoking Status: Tobacco use Status Tobacco use date assessed 08/28/22 10/31/22 10:27 Patient Tobacco Use Status Never used Tobacco 10/31/22 10:27 e-Cigarette/Vaping Use Never Used 10/31/22 10:27 Thrive Assessment: Date of Thrive Assessment Date Thrive assessed 08/24/20 10/31/22 10:27 Assessment and Plan Assessment & Plan (1) Hypertension, essential: Code(s): I10 - Essential (primary) hypertension Plan: Patient had been taking extra amlodipine and so ran out before she was ready for a refill. She continued losartan only. Blood pressures were quite high on losartan alone and she was seen in the emergency department for this. She is now back on losartan and amlodipine as prescribed. Encouraged her to take medication as prescribed and let me know if blood pressures are not within expected ranges. (2) Acquired cerebral ventriculomegaly: Code(s): G91.1 - Obstructive hydrocephalus Plan: CT scan at the emergency department showed incidental ventriculomegaly. This has been seen previously and is more pronounced than in 2018. Will check MRI - concern for normal pressure hydrocephalus Will follow-up after MRI and likely refer to Neurology (3) Lower extremity weakness: Code(s): R29.898 - Other symptoms and signs involving the musculoskeletal system Plan: Lower extremity weakness but also mildly wide-based shuffling gait which may be a symptom of NPH. Checking MRI as above. (4) Unsteady gait: Code(s): R26.81 - Unsteadiness on feet Orders: Orders MR head/brain wo con Today G91.1 - Obstructive hydrocephalus, R26.81 - Unsteadiness on feet, R93.89 - Abnormal findings on diagnostic imaging of other specified body structures Coding Level of Care Code Est Pt Level 3 (08971) Diagnoses Hypertension, essential I10 Acquired cerebral ventriculomegaly G91.1 Lower extremity weakness R29.898 Unsteady gait R26.81
[2022-10-31 10:22] VITALS: BP 126/78; PULSE 73; RESP 12; TEMP 36.4; O2SAT 99; BMI 29.5
== END 2022-10-31 11:06 | disposition home or self-care (01) ==
PROVIDERS: PCP Family Medicine; Visit Provider Family Medicine
DX: I10 Essential (primary) hypertension (principal); G91.1 Obstructive hydrocephalus; R29.898 Other symptoms and signs involving the musculoskeletal system; R26.81 Unsteadiness on feet
CPT/HCPCS: 99213

== ENCOUNTER 2022-12-19 10:32 | Outpatient (AMB) | payer OTHER, SELFPAY ==
--- NOTE | 2022-12-19 10:35 | A.OFFPC_ITS ---
Vital Signs 12/19/22 10:37 Height 5 ft 5 in Weight 175 lb BMI 29.1 BP 132/80 Blood Pressure Location Lt brachial Position Sitting Pulse 63 Pulse Source Pulse Oximeter Pulse Oximetry (%) 96 Oxygen Delivery Method Room Air Intake Visit Reasons: follow up weakness Intake Note: Patient is following up on weakness and pain. Patient is also feeling dizzy, and having a headaches, she needs a new shower chair, and would like shower grab bars, too. Allergies seafood Allergy (Unknown, Verified 12/19/22 10:40) rash, GI upset losartan Adverse Reaction (Severe, Verified 12/19/22 10:40) blurry vision, muscle pain. Tobacco use date assessed: 12/19/22 HPI follow up weakness HPI Details 62 y/o [facility] with unsteady gait. Concern for NPH. Had ordered an MRI. A1c today 12/19/22 is 7.6%. She is on metformin 500mg b.i.d. They report she has an MRI scheduled. They report ongoing symptoms. Had made a referral back to Neurology. Blood pressure today 132/80. She is on amlodipine 5mg and valsartan 160mg daily. [facility] Medical History Chronic abdominal pain Plasma cell disorder Diabetes mellitus GERD (gastroesophageal reflux disease) HTN (hypertension) Elevated rheumatoid factor Surgical History History of hand surgery History of back surgery No pertinent past surgical history Family History Father No problems noted. Mother CVD (cardiovascular disease) Diabetes Sister In good health Son In good health Daughter In good health Social History Housing: Apartment Are you a primary family day care worker to a significant other at home: No Do you presently have visiting nurse or other home services: No Alcohol intake: never Patient Tobacco Use Status: Never used Tobacco e-Cigarette/Vaping Use: Never Used Second Hand Smoke Exposure: No service: No Current occupational status: unemployed and disabled Current occupation: right handed Current occupational exposures/hazards: No Cognitive needs: No Hearing needs: No Vision needs: Yes Questionnaire Thrive Questionnaire Date Thrive assessed: 08/24/20 ALEXA-7 AMB Questionnaire ALEXA-7 Date ALEXA - 7 assessed: 11/21/21 Source: Developed by Drs. Kang West, Rebecca Griffith, Efrain Allison and colleagues, with an educational lynne from [employer]. Review of Systems Const Denies chills, Denies fatigue, Denies fever(s), Denies headache(s) and Denies weakness ENT Denies dizziness and Denies headache(s) Card Denies chest pain, Denies lightheadedness, Denies dyspnea and Denies other (Palpitations) Resp Denies cough, Denies dyspnea, Denies wheezing and Denies other ( shortness of breath) Musc Denies numbness and Denies tingling Neuro Denies dizziness, Denies headache(s), Denies numbness, Denies tingling, Denies paresthesias and Denies weakness Psych Denies anxiety and Denies depression Endo Denies fatigue Aller/Immun Denies wheezing Physical exam (Primary Care) Vital Signs: Last Vital Signs Pulse 63 12/19/22 10:37 BP 132/80 12/19/22 10:37 Pulse Ox 96 12/19/22 10:37 Oxygen Delivery Method Room Air 12/19/22 10:37 BMI result Body Mass Index 29.1 Tobacco/Smoking Status: Tobacco use Status Tobacco use date assessed 12/19/22 12/19/22 10:44 Patient Tobacco Use Status Never used Tobacco 12/19/22 10:36 e-Cigarette/Vaping Use Never Used 12/19/22 10:36 Thrive Assessment: Date of Thrive Assessment Date Thrive assessed 08/24/20 12/19/22 10:36 Const General: no acute distress and well developed Nutritional Appearance: well nourished Orientation/consciousness: patient oriented x3 HENMT Head: Yes normocephalic and Yes atraumatic Eyes General: appearance normal, both eyes and all related structures Pupils: Equal, round and reactive pupils present EOM: EOMs intact bilaterally Resp Effort & Inspection: normal respiratory effort Auscultation: clear to auscultation bilaterally Cardio Rate: regular rate Rhythm: regular rhythm Heart sounds: S1 normal heart sound present, S2 normal heart sound present, no gallops, no murmurs and no rubs Neuro General: patient oriented x3 and gait normal Cranial nerves: Yes Equal, round and reactive pupils present Psych Affect: normal affect Results AMB Hemoglobin A1c AMB Hemoglobin A1c 7.6 % Last Edit by Berta Agarwal CMA on 12/19/22 11:47 Assessment and Plan Assessment & Plan (1) Acquired cerebral ventriculomegaly: Code(s): G91.1 - Obstructive hydrocephalus Plan: Unsteady?gait?and?lower?extremity?weakness.??Had?send?patient?for?a?CT?scan?whic h?showed?ventriculomegaly Checking?MRI, concern?for?normal?pressure?hydrocephalus?with?balance?changes Referred?to?neurology (2) Lower extremity weakness: Code(s): R29.898 - Other symptoms and signs involving the musculoskeletal system Plan: Continue?AFO Continue?physical?therapy (3) Unsteady gait: Code(s): R26.81 - Unsteadiness on feet Plan: Continue?physical?therapy (4) Diabetes mellitus: Code(s): E11.9 - Type 2 diabetes mellitus without complications Plan: A1c?has?risen?to?7.6% Continue?metformin Added?glipizide?ER?5?mg?daily Encouraged?diabetic?diet?and?exercise?as?tolerated (5) Screening for osteoporosis: Code(s): Z13.820 - Encounter for screening for osteoporosis Plan: Check?bone?density (6) Hypertension, essential: Code(s): I10 - Essential (primary) hypertension Plan: Blood?pressure?is?controlled.??Goal?is?less?than?140/90 Continue?current?medication?regimen Orders: Orders AMB Hemoglobin A1c Today Z13.9 - Encounter for screening, unspecified XR DEXA axial skeleton Today Z78.0 - Asymptomatic menopausal state, Z91.89 - Other specified personal risk factors, not elsewhere classified Referrals Neurology Referral G91.1 - Obstructive hydrocephalus, R26.81 - Unsteadiness on feet, R29.898 - Other symptoms and signs involving the musculoskeletal system Medications: New Shower Chair (Chair, shower) Daily As directed, 999 days 1 ea 0RF G91.1 - Obstructive hydrocephalus, M48.061 - Spinal stenosis, lumbar region without neurogenic claudication, R26.81 - Unsteadiness on feet, R29.898 - Other symptoms and signs involving the musculoskeletal system Grab bar Daily As directed, 999 days 2 ea 0RF G91.1 - Obstructive hydrocephalus, M48.061 - Spinal stenosis, lumbar region without neurogenic claudication, R26.81 - Unsteadiness on feet, R29.898 - Other symptoms and signs involving the musculoskeletal system glipizide ER 5 mg PO DAILY 30 tabs 2RF 30 days Coding Level of Care Code Est Pt Level 4 (45088) Diagnoses Acquired cerebral ventriculomegaly G91.1 Lower extremity weakness R29.898 Unsteady gait R26.81 Diabetes mellitus E11.9 Screening for osteoporosis Z13.820 Hypertension, essential I10
[2022-12-19 10:37] VITALS: BP 132/80; PULSE 63; O2SAT 96; BMI 29.1
== END 2022-12-19 11:53 | disposition home or self-care (01) ==
PROVIDERS: PCP Family Medicine; Visit Provider Family Medicine
DX: G91.1 Obstructive hydrocephalus (principal); E11.9 Type 2 diabetes mellitus without complications; R29.898 Other symptoms and signs involving the musculoskeletal system; R26.81 Unsteadiness on feet; Z13.820 Encounter for screening for osteoporosis; I10 Essential (primary) hypertension
CPT/HCPCS: 83036; 99214

== ENCOUNTER 2023-01-02 07:35 | Outpatient (REF) | payer OTHER, SELFPAY ==
--- NOTE | ~2023-01-02 | MR_ITS ---
MRI OF THE BRAIN WITHOUT IV CONTRAST INDICATION: Right-sided headache and right eye pain. Fall down stairs 20 years ago, hit head. COMPARISON: None available. TECHNIQUE: Multiplanar multisequence MR imaging of the brain was obtained without IV contrast. FINDINGS: No acute intracranial hemorrhage or infarct. Scattered and confluent periventricular white matter T2/FLAIR hyperintensities, nonspecific however commonly seen with small vessel ischemic disease. There is marked prominence of the supratentorial ventricles, out of proportion to widening of the sulci. No evidence of transependymal CSF flow to suggest acute hydrocephalus. No obstructive lesion or definite aqueductal stenosis identified. There is somewhat minimal widening of the sylvian fissures bilaterally. Mild upward bowing of the thin corpus callosum. No midline shift. No acute extra-axial fluid collections. The osseous structures are unremarkable. Partially empty sella. The pineal gland and remaining midline structures are unremarkable. No orbital pathology. Mild mucosal thickening of the paranasal sinuses. The mastoid air cells are clear. MR/MR head/brain wo con IMPRESSION: -No acute intracranial findings. -Marked prominence of the supratentorial ventricles, out of proportion to widening of the sulci without evidence for acute hydrocephalus. No obstructive lesion or definite aqueductal stenosis identified. Findings are most suggestive of normal pressure hydrocephalus. -Chronic microangiopathy.
== END 2023-01-02 07:36 | disposition home or self-care (01) ==
LOC: HO.MRI 07:35
PROVIDERS: PCP Family Medicine; Visit Provider Family Medicine
DX: G91.1 Obstructive hydrocephalus (principal); R26.81 Unsteadiness on feet; R93.89 Abnormal findings on diagnostic imaging of other specified body structures
CPT/HCPCS: 70551

== ENCOUNTER 2023-01-14 14:37 | Outpatient (AMB) | payer OTHER, SELFPAY ==
--- NOTE | 2023-01-14 14:22 | A.OFFPC_ITS ---
Intake Visit Reasons: review MRI results Intake Note: Patient is following up on MRI results today. Patient has headaches and forgets things a lot She ad a blood sugar read of 50 on Thursday. I spoke with her daughter Ritu regarding this, so her mother can understand. Allergies seafood Allergy (Unknown, Verified 01/14/23 14:25) rash, GI upset losartan Adverse Reaction (Severe, Verified 01/14/23 14:25) blurry vision, muscle pain. Tobacco use date assessed: 01/14/23 HPI review MRI results HPI Details 62 y/o female presents to review MRI res ults via telemedicine. Brain MRI 01/02/23 showed no acute intracranial findings. Per note, Marked prominence of the supratentorial ventricles, out of proportion to widening of the sulci without evidence for acute hydrocephalus. No obstructive lesion or definite aqueductal stenosis identified. Findings are most suggestive of normal pressure hydrocephalus. Also showed chronic microangiopathy. [facility] Medical History (Updated 01/14/23 @ 15:09 by Michael Kohli) Chronic abdominal pain Plasma cell disorder Diabetes mellitus GERD (gastroesophageal reflux disease) HTN (hypertension) Elevated rheumatoid factor Surgical History History of hand surgery History of back surgery No pertinent past surgical history Family History Father No problems noted. Mother CVD (cardiovascular disease) Diabetes Sister In good health Son In good health Daughter In good health Social History Housing: Apartment Are you a primary critical care nurse to a significant other at home: No Do you presently have visiting nurse or other home services: No Alcohol intake: never Patient Tobacco Use Status: Never used Tobacco e-Cigarette/Vaping Use: Never Used Second Hand Smoke Exposure: No service: No Current occupational status: unemployed and disabled Current occupation: right handed Current occupational exposures/hazards: No Cognitive needs: No Hearing needs: No Vision needs: Yes Questionnaire Thrive Questionnaire Date Thrive assessed: 08/24/20 ALEXA-7 AMB Questionnaire ALEXA-7 Date ALEXA - 7 assessed: 11/21/21 Source: Developed by Drs. Kang West, Rebecca B.W. Efrain Griffith and colleagues, with an educational lynne from [email or web address]. Review of Systems Const Denies chills, Denies fatigue, Denies fever(s), Denies headache(s) and Denies w eakness ENT Denies dizziness and Denies headache(s) Card Denies dyspnea Resp Denies cough, Denies dyspnea, Denies wheezing and Denies other (shortness of breath) Musc Denies numbness and Denies tingling Neuro Denies dizziness, Denies headache(s), Denies numbness, Denies tingling and Denies weakness Psych Denies anxiety and Denies depression Endo Denies fatigue Aller/Immun Denies wheezing Physical exam (Primary Care) Tobacco/Smoking Status: Tobacco use Status Tobacco use date assessed 01/14/23 01/14/23 14:31 Patient Tobacco Use Status Never used Tobacco 01/14/23 14:31 e-Cigarette/Vaping Use Never Used 01/14/23 14:31 Thrive Assessment: Date of Thrive Assessment Date Thrive assessed 08/24/20 01/14/23 14:31 Telehealth Telehealth Location of provider rendering services: practice address Location of patient: address on file Patient Identification confirmed using: Name, : Yes Telehealth method: voice only Patient verbally consented to treatment: Yes Patient verbally consented to billing insurance company: Yes Patient informed of any privacy concerns related to visit: Yes Assessment and Plan Assessment & Plan (1) Normal pressure hydrocephalus: Code(s): G91.2 - (Idiopathic) normal pressure hydrocephalus Plan: Acquired?ventriculomegaly?with?unsteady?gait?and?cognitive?changes?as?well?as?so me?incontinence?and?lower?extremity?weakness. Concern?for?normal?pressure?hydrocephalus. Referred?to?neurology (2) Diabetes mellitus: Code(s): E11.9 - Type 2 diabetes mellitus without complications Plan: Patient's?daughter?noted?some?low?blood?sugars?though?she?was?unavailable?to?dis cuss?at?this?encounter.??Son?was?unaware. Advised?him?to?make?sure?she?i s?having?regular?meals?and?if?she?has?low?blood?sugar?she?should?have?a?snack?an d?call?us?to?report?this?immediately. She?has?an?appointment?in?March?and?we?can?follow-up?to?ensure?blood?sugars?a re?well?controlled Orders: Referrals Neurology Referral G91.2 - (Idiopathic) normal pressure hydrocephalus, R26.81 - Unsteadiness on feet, R29.898 - Other symptoms and signs involving the musculoskeletal system, R32 - Unspecified urinary incontinence, R41.89 - Other symptoms and signs involving cognitive functions and awareness Coding Level of Care Code Tele Est Pt Level 2 (76575) Diagnoses Normal pressure hydrocephalus G91.2 Diabetes mellitus E11.9
== END 2023-01-14 14:50 ==
PROVIDERS: PCP Family Medicine; Visit Provider Family Medicine
DX: G91.2 (Idiopathic) normal pressure hydrocephalus (principal); E11.9 Type 2 diabetes mellitus without complications
CPT/HCPCS: 99212

== ENCOUNTER 2023-01-20 10:49 | Outpatient (REF) | payer OTHER, SELFPAY ==
--- NOTE | ~2023-01-20 | MM_ITS ---
EXAMINATION: BONE DENSITOMETRY CLINICAL INDICATION: Asymptomatic menopausal state. COMPARISON: This is the patient's baseline examination. TECHNIQUE: Using a BenchPrep DXA System (software version: 13.1) manufactured by [employer], dual-energy x-ray absorptiometry was performed of the lumbar spine and left hip. The images are of good technical quality. Summary results are attached. FINDINGS: AP SPINE L1-L4: BMD 0.925 g/cm2, Z-score -1.1, T-score -2.1, osteopenia. LEFT FEMUR, NECK: BMD 0.795 g/cm2, Z-score -0.7, T-score -1.7, osteopenia. LEFT FEMUR, TOTAL: BMD 0.922 g/cm2, Z-score 0.1, T-score -0.7, normal. IDENTIFIED RISK FACTORS: Menopause. HISTORY OF FRACTURE: None listed. MEDICATIONS: Calcium supplement and/or multivitamin. Vitamin D. MM/XR DEXA axial skeleton IMPRESSION: 1. DIAGNOSIS: Osteopenia based on the lowest T-score value of -2.1 in the lumbar spine applying World Health Organization criteria. 2. 10-YEAR FRACTURE RISK PREDICTION, FRAX: Major osteoporotic fracture (clinical spine, forearm, hip or shoulder) 5.0%. Hip fracture 0.6%. 3. Treatment Recommendations: NOF guidelines recommend consideration for treatment in postmenopausal women and men age 50 and older presenting with the following: -A hip or vertebral (clinical or morphometric) fracture. -T-score less than or equal to -2.5 at the femoral neck or spine after appropriate evaluation to exclude secondary causes. -Low bone mass at the hip or spine and a 10-year fracture probability by FRAX of greater than or equal to 3% for hip fracture or greater than or equal to 20% for major osteoporotic fracture based on the [place] adapted WHO algorithm. 4. Other Recommendations: All treatment decisions require clinical judgment and consideration of individual patient factors, including patient preferences, comorbidities, previous drug use, risk factors not captured in the FRAX model (e.g. frailty, falls, vitamin D deficiency, increased bone turnover, interval significant decline in bone density) and possible under or overestimation of fracture risk by FRAX. Additional medical evaluation for secondary cause of low bone mineral density may be appropriate. FUTURE SCAN RECOMMENDATION: People with diagnosed cases of osteoporosis or at high risk for fracture should have regular bone mineral density tests. For patients eligible for Medicare, routine testing is allowed once every 2 years. The testing frequency can be increased to one year for patients who have rapidly progressing disease, those who are receiving or discontinuing medical therapy to restore bone mass, or have additional risk factors.
== END 2023-01-20 10:50 | disposition home or self-care (01) ==
LOC: HO.MAMMO 10:49
PROVIDERS: PCP Family Medicine; Visit Provider Family Medicine
DX: Z13.820 Encounter for screening for osteoporosis (principal); Z78.0 Asymptomatic menopausal state; Z91.89 Other specified personal risk factors, not elsewhere classified
CPT/HCPCS: 77080

== ENCOUNTER 2023-02-05 08:47 | Outpatient (REF) | payer OTHER, SELFPAY ==
[2023-02-05 09:53] LABS: MANUAL DIFF FLAG NO
[2023-02-05 10:45] LABS: Basophils Percent Auto 0.1 % (0-2); Eosinophils Absolute Auto 0.2 X10*3/uL (0.0-0.4); Eosinophils Percent Auto 2.6 % (0-4); Hemoglobin 13.8 g/dl (12.0-16.0); Imm Gran Abs Auto 0.02 X10*3/uL (0.00-0.03); Imm Gran Pct Auto 0.3 % (0.0-0.4); Lymphocytes Absolute Auto 3.1 X10*3/uL (1.2-4.9); Mean Corpuscular HGB Conc 32.9 g/dl (31.0-35.0); Mean Corpuscular Hemoglobin 29.2 pg (27.0-33.0); Mean Corpuscular Volume 88.8 fL (80.0-98.0); Mean Platelet Volume 10.6 fL (9.4-12.3); Monocytes Absolute Auto 0.5 X10*3/uL (0.1-1.2); Monocytes Percent Auto 7.2 % (2-11); Neutrophils Absolute Auto 3.5 x10*3/uL (2.0-8.3); Neutrophils Percent Auto 47.8 % (45-73); Platelet Count 234 X10*3/uL (160-400); Red Blood Count 4.73 X10*6/uL (4.20-5.50); Red Cell Distribution Width 12.7 % (11.0-16.0); White Blood Count 7.4 X10*3/uL (4.8-10.8)
[2023-02-05 11:08] LABS: Alanine Aminotransferase 102 U/L (0-31); Albumin Level 4.5 g/dL (3.5-5.0); Alkaline Phosphatase 84 U/L (39-117); Anion Gap 15 (12-20); Aspartate Amino Transferase 63 U/L (5-31); Bilirubin Total 0.4 mg/dL (0.0-1.0); Blood Urea Nitrogen 12 mg/dL (9-16); C Reactive Protein 0.31 mg/dL (< or = 0.50); Calcium 10.4 mg/dL (8.4-10.2); Carbon Dioxide 26 mmol/L (22-29); Chloride 105 mmol/L (96-108); Estimated Glomerular Filt Rate > 60; Glucose Random 131 mg/dL (60-115); Potassium 3.7 mmol/L (3.3-5.1); Sodium 142 mmol/L (135-145); Total Protein 7.6 g/dL (6.5-8.0)
[2023-02-05 11:23] LABS: Erythrocyte Sedimentation Rate 7 MM/HR (0-20)
[2023-02-05 12:41] LABS: HBS Num1 85.08 mIU/mL (0-7.99); HBc Num1 0.15 S/CO (0.00-0.79); HBsAGNum1 0.33 S/CO (0.00-0.99); Hepatitis A Antibody IgM 0.15 Index (0-0.79); Hepatitis B Core Antibody Nonreactive (Nonreactive); Hepatitis B Surface Antigen Negative (Negative); ~Hepatitis A Antibody IgM Nonreactive (Nonreactive); ~Hepatitis B Surface Antibody REACTIVE (Nonreactive); ~Hepatitis C Antibody Nonreactive (Nonreactive)
[2023-02-06 12:23] LABS: Cyclic Citrullinated Peptide 17 UNITS
[2023-02-06 20:13] LABS: IgA 162 mg/dL (70-320); IgG 1049 mg/dL (600-1540); IgM 128 mg/dL (50-300)
[2023-02-06 22:42] LABS: Prot Elec - Albumin 4.5 g/dL (3.8-4.8); Prot Elec - Alpha1 0.3 g/dL (0.2-0.3); Prot Elec - Alpha2 0.7 g/dL (0.5-0.9); Prot Elec - Beta 1 0.5 g/dL (0.4-0.6); Prot Elec - Beta 2 0.3 g/dL (0.2-0.5); Prot Elec - Gamma 0.9 g/dL (0.8-1.7); Prot Elec - Total Protein 7.2 g/dL (6.1-8.1)
[2023-02-08 15:53] LABS: TS Negative Control Passed; TS Panel A 0; TS Panel B 0; TS Positive Control Passed; TSpotTB Negative (Negative)
== END 2023-02-05 08:48 | disposition home or self-care (01) ==
LOC: HO.LAB 08:47
PROVIDERS: PCP Family Medicine; Visit Provider Student in an Organized Health Care Education/Training Program
DX: M05.79 Rheumatoid arthritis with rheumatoid factor of multiple sites without organ or systems involvement (principal); Z11.7 Encounter for testing for latent tuberculosis infection; Z11.59 Encounter for screening for other viral diseases; Z79.899 Other long term (current) drug therapy
CPT/HCPCS: 36415; 73110; 73130; 73610; 73630; 80053; 82784; 84165; 85025; 85652; 86140; 86200; 86334; 86481; 86704; 86706; 86709; 86803; 87340; 99202

== ENCOUNTER 2023-02-05 08:47 | Outpatient (AMB) | payer OTHER, SELFPAY ==
--- NOTE | 2023-02-05 08:58 | A.OFFVIS_ITS ---
Intake Vital Signs 02/05/23 08:59 Height 5 ft 5 in Weight 177 lb 11.081 oz BMI 29.6 BP 116/80 Blood Pressure Location Rt brachial Position Sitting Pulse 59 Pulse Source Pulse Oximeter Temp 97 F Temp Source Skin Pulse Oximetry (%) 96 Oxygen Delivery Method Room Air Intake Visit Reasons: HAND PAIN Intake Note: New pt presents today for consult. C/o pain in multiple joints Rigging Up Man Required: Yes Rigging Up Man Name: Son Information Interpreted: non-clinical & clinical Accompanied by: Son Allergies seafood Allergy (Unknown, Verified 02/05/23 09:01) rash, GI upset losartan Adverse Reaction (Severe, Verified 02/05/23 09:01) blurry vision, muscle pain. Medication List - Last Reconciled 02/05/23 by Kana Mendosa MD amitriptyline 50 mg PO BEDTIME 90 days amlodipine 5 mg PO DAILY baclofen 10 mg PO DAILY 90 days bisacodyl (Dulcolax (bisacodyl)) 10 mg LA DAILY PRN blood sugar diagnostic (FreeStyle Lite Strips) Test Blood sugar 2 times a day As directed, 90 days diclofenac sodium 1% 2 grams topical QID 30 days gabapentin 600 mg PO TID 90 days glipizide ER 5 mg PO DAILY 30 days Grab bar Daily As directed, 999 days ketotifen fumarate 0.025%(0.035%) ([place]) 1 drp ophthalmic (eye) Q12H PRN 30 days metformin 500 mg PO BID 30 days miscellaneous medical supply Diabetic shoes. Daily As directed, 999 days/lifetime. Disp #1 pair miscellaneous medical supply Custom Right AFOy, daily As directed. 999 days/lifetime. Disp #1 ofloxacin 0.3% 5 drps otic (ears) DAILY 7 days omeprazole 40 mg PO DAILY sennosides-docusate sodium 8.6-50 mg (Laxative Stool Softener With Senna) 1 tab- cap PO BID 1 month Shower Chair (Chair, shower) Daily As directed, 999 days simethicone (Gas Relief (simethicone)) 80 mg PO BID-QID PRN 30 days topiramate 25 mg PO DAILY triamcinolone acetonide 0.1% 1 appl topical BID 15 days valsartan 160 mg PO DAILY HPI HPI Comments History of Present Illness Details This is a 62-year-old female who presents for evaluation of polyarthralgias and positive rheumatoid factor. She was evaluated by Dr. Patton in 2019 and was deemed not to have an autoimmune rheumatic disease. Patient complains of bilateral hand pain and stiffness, bilateral pain in her feet. She has morning stiffness lasting 30 minutes. She states that she has h ad right footdrop since 2015 which improved after back surgery. She wears a brace for her left ankle and uses a cane. She has bilateral carpal tunnel syndrome. She did right hand carpal tunnel release surgery. She states that she has not improved much after the surgery. She is unaware of any family history of an autoimmune rheumatic disease. She denies any history of DVT/PE. She had 10 pregnancies in total, 3 miscarriages. [facility] Medical History Acquired right foot drop Chronic abdominal pain Plasma cell disorder Diabetes mellitus GERD (gastroesophageal reflux disease) HTN (hypertension) Elevated rheumatoid factor Surgical History History of hand surgery History of back surgery No pertinent past surgical history Family History Father No problems noted. Mother CVD (cardiovascular disease) Diabetes Sister In good health Son In good health Daughter In good health Social History Housing: Apartment Are you a primary reproductive healthcare assistant to a significant other at home: No Do you presently have visiting nurse or other home services: No Alcohol intake: never Patient Tobacco Use Status: Never used Tobacco e-Cigarette/Vaping Use: Never Used Second Hand Smoke Exposure: No service: No Current occupational status: unemployed and disabled Current occupation: right handed Current occupational exposures/hazards: No Cognitive needs: No Hearing needs: No Vision needs: Yes Female Reproductive History Menstrual Total pregnancies: 10 Number of Living Children: 7 Ab spontaneous: 3 Review of Systems Musc Reports abnormal gait, Reports arthralgias, Reports limited range of motion and Reports stiffness Neuro Reports abnormal gait Physical Exam Vital Signs: Last Vital Signs Temp 97 F 02/05/23 08:59 Pulse 59 02/05/23 08:59 BP 116/80 02/05/23 08:59 Pulse Ox 96 02/05/23 08:59 Oxygen Delivery Method Room Air 02/05/23 08:59 BMI result Body Mass Index 29.6 Const General: cooperative, healthy appearing and comfortable Nutritional Appearance: overweight Orientation/consciousness: patient oriented x3 Limitations: ambulation with cane HEENT Head: Yes normocephalic and Yes atraumatic Mouth: moist mucous membranes Resp Effort & Inspection: normal respiratory effort and able to speak in complete sentences Auscultation: clear to auscultation bilaterally Cardio Rate: regular rate Rhythm: regular rhythm Neuro Other: Right footdrop General: patient oriented x3 Extrem Other: Patient has a right ankle brace and left knee brace. Mild puffiness of right wrist and tenderness to palpation and pain with flexion and extension Left wrist pain with flexion extension Few tender MCPs and PIP is bilaterally Bilateral positive MCP squeeze test Normal nailfold capillaroscopy Right elbow pain with full flexion and extension No ankle swelling or tenderness bilaterally Bilateral diffuse MTP tenderness and positive MTP squeeze test Assessment & Plan Assessment & Plan (1) Rheumatoid arthritis: Code(s): M06.9 - Rheumatoid arthritis, unspecified Qualifiers: Rheumatoid arthritis location: multiple sites Rheumatoid factor presence: with rheumatoid factor Qualified Code(s): M05.79 - Rheumatoid arthritis with rheumatoid factor of multiple sites without organ or systems involvement Plan: This is a 62-year-old female who presents for evaluation of multiple joint pain and positive rheumatoid factor. Upon evaluation patient has few swollen and tender joints. Labs showed persistently elevated positive rheumatoid factor. CCP antibody previously negative. She has history of bilateral carpal tunnel syndrome s/p right carpal tunnel release. Will recheck anti CCP antibody, check basic labs and x-rays of involved joints. Will discuss DMARDs next visit Follow-up in 2-4 weeks Plan I spent 47 minutes reviewing patient's chart, evaluating patient, ordering diagnostic workup, counseling patient and documenting in the chart Orders: Orders Complete Blood Count Auto Diff Today M06.9 - Rheumatoid arthritis, unspecified Comprehensive Met. Panel Today M06.9 - Rheumatoid arthritis, unspecified Erythrocyte Sedimentation Rate Today M06.9 - Rheumatoid arthritis, unspecified Protein Electrophoresis, Serum Today M06.9 - Rheumatoid arthritis, unspecified T Spot TB Today Z11.7 - Encounter for testing for latent tuberculosis infection Cyclic Citrullinated Peptide Today M06.9 - Rheumatoid arthritis, unspecified XR hand wrist LT Today M06.9 - Rheumatoid arthritis, unspecified XR ankle RT min 3V Today M06.9 - Rheumatoid arthritis, unspecified XR ankle LT min 3V Today M06.9 - Rheumatoid arthritis, unspecified C Reactive Protein Today M06.9 - Rheumatoid arthritis, unspecified Immunofixation Pnl, Serum Today M06.9 - Rheumatoid arthritis, unspecified Hepatitis A,B,C Profile Today Z11.59 - Encounter for screening for other viral diseases XR hand wrist RT Today M06.9 - Rheumatoid arthritis, unspecified XR foot LT min 3V Today M06.9 - Rheumatoid arthritis, unspecified XR foot RT min 3V Today M06.9 - Rheumatoid arthritis, unspecified Coding Level of Care Code New Pt Level 4 (19386) Diagnoses Rheumatoid arthritis involving multiple sites with positive rheumatoid factor M05.79 Rheumatoid arthritis location: multiple sites Rheumatoid factor presence: with rheumatoid factor
[2023-02-05 08:59] VITALS: BP 116/80; PULSE 59; TEMP 36.1; O2SAT 96; BMI 29.6
== END 2023-02-05 09:33 | disposition home or self-care (01) ==
PROVIDERS: PCP Family Medicine; Visit Provider Student in an Organized Health Care Education/Training Program
DX: M05.79 Rheumatoid arthritis with rheumatoid factor of multiple sites without organ or systems involvement (principal)
CPT/HCPCS: 99204

== ENCOUNTER 2023-03-05 11:51 | Outpatient (AMB) | payer OTHER, SELFPAY ==
--- NOTE | 2023-03-05 11:54 | MHC.OFFVIS ---
Intake Vital Signs 03/05/23 11:55 Height 5 ft 5 in Weight 173 lb 15.115 oz BMI 28.9 BP 118/90 H Blood Pressure Location Lt brachial Position Sitting Pulse 60 Pulse Source Pulse Oximeter Pulse Oximetry (%) 95 Oxygen Delivery Method Room Air Intake Visit Reasons: RA Intake Note: Patient last seen 02/05/[address] Mendosa, presents today for follow up and test results. c/o left elbow pain x 1 wk Silo Worker Required: Yes Silo Worker Name: daughter Information Interpreted: non-clinical & clinical Allergies seafood Allergy (Unknown, Verified 03/05/23 11:57) rash, GI upset losartan Adverse Reaction (Severe, Verified 03/05/23 11:57) blurry vision, muscle pain. Medication List - Last Reconciled 03/05/23 by Kana Mendosa MD amitriptyline 50 mg PO BEDTIME 90 days amlodipine 5 mg PO DAILY baclofen 10 mg PO DAILY 90 days bisacodyl (Dulcolax (bisacodyl)) 10 mg [place] DAILY PRN blood sugar diagnostic (FreeStyle Lite Strips) Test Blood sugar 2 times a day As directed, 90 days diclofenac sodium 1% 2 grams topical QID 30 days gabapentin 600 mg PO TID 90 days glipizide ER 5 mg PO DAILY 30 days Grab bar Daily As directed, 999 days ketotifen fumarate 0.025%(0.035%) ([place]away) 1 drp ophthalmic (eye) Q12H PRN 30 days metformin 500 mg PO BID 30 days miscellaneous medical supply Diabetic shoes. Daily As directed, 999 days/lifetime. Disp #1 pair miscellaneous medical supply Custom Right AFOy, daily As directed. 999 days/lifetime. Disp #1 ofloxacin 0.3% 5 drps otic (ears) DAILY 7 days omeprazole 40 mg PO DAILY sennosides-docusate sodium 8.6-50 mg (Laxative Stool Softener With Senna) 1 tab-cap PO BID 1 month Shower Chair (Chair, shower) Daily As directed, 999 days simethicone (Gas Relief (simethicone)) 80 mg PO BID-QID PRN 30 days topiramate 25 mg PO DAILY triamcinolone acetonide 0.1% 1 appl topical BID 15 days valsartan 160 mg PO DAILY HPI HPI Comments History of Present Illness Details Patient returns for follow-up after completion of her diagnostic workup. She states that she feels about the same overall but has been having left elbow pain for the last week. She does not recall any injury or overuse Initial history: This is a 62-year-old female who presents for evaluation of polyarthralgias and positive rheumatoid factor. She was evaluated by Dr. Patton in 2019 and was deemed not to have an autoimmune rheumatic disease. Patient complains of bilateral hand pain and stiffness, bilateral pain in her feet. She has morning stiffness lasting 30 minutes. She states that she has had right footdrop since 2015 which improved after back surgery. She wears a brace for her left ankle and uses a cane. She has bilateral carpal tunnel syndrome. She did right hand carpal tunnel release surgery. She states that she has not improved much after the surgery. She is unaware of any family history of an autoimmune rheumatic disease. She denies any history of DVT/PE. She had 10 pregnancies in total, 3 miscarriages. [facility], [facility] Medical History Acquired right foot drop Chronic abdominal pain Plasma cell disorder Diabetes mellitus GERD (gastroesophageal reflux disease) HTN (hypertension) Elevated rheumatoid factor Surgical History History of hand surgery History of back surgery No pertinent past surgical history Family History Father No problems noted. Mother CVD (cardiovascular disease) Diabetes Sister In good health Son In good health Daughter In good health Social History Housing: Apartment Are you a primary day care home mother to a significant other at home: No Do you presently have visiting nurse or other home services: No Alcohol intake: never Patient Tobacco Use Status: Never used Tobacco e-Cigarette/Vaping Use: Never Used Second Hand Smoke Exposure: No service: No Current occupational status: unemployed and disabled Current occupation: right handed Current occupational exposures/hazards: No Cognitive needs: No Hearing needs: No Vision needs: Yes Review of Systems Musc Reports abnormal gait, Reports arthralgias, Reports limited range of motion and Reports stiffness Neuro Reports abnormal gait Physical Exam Vital Signs: BMI result Body Mass Index 28.9 Const General: cooperative, healthy appearing and comfortable Nutritional Appearance: overweight Orientation/consciousness: patient oriented x3 Limitations: ambulation with cane HEENT Head: Yes normocephalic and Yes atraumatic Mouth: moist mucous membranes Resp Effort & Inspection: normal respiratory effort and able to speak in complete sentences Neuro Other: Right footdrop General: patient oriented x3 Extrem Other: Patient has a right ankle brace and left knee brace. Mild puffiness of right wrist and tenderness to palpation and pain with flexion and extension Left wrist pain with flexion extension Few tender MCPs and PIPs bilaterally Bilateral positive MCP squeeze test Normal nailfold capillaroscopy Left elbow pain with full flexion and extension and tenderness at the olecranon process No tenderness at the common extensor origin with negative resisted wrist extension test No ankle swelling or tenderness bilaterally Bilateral diffuse MTP tenderness and positive MTP squeeze test Assessment & Plan Assessment & Plan (1) Rheumatoid arthritis: Comment: ++RF -ve CCP dx 02/2023 Code(s): M06.9 - Rheumatoid arthritis, unspecified Qualifiers: Rheumatoid arthritis location: multiple sites Rheumatoid factor presence: with rheumatoid factor Qualified Code(s): M05.79 - Rheumatoid arthritis with rheumatoid factor of multiple sites without organ or systems involvement Plan: This is a 62-year-old female with seropositive RA who returns for follow-up after completion of her diagnostic workup. X-rays showed some degenerative changes, there are no erosive changes, there is some periarticular osteopenia. Will need to start DMARDs. Can not use methotrexate, leflunomide or sulfasalazine due to transaminitis. (known fatty liver according to patient) Discussed risks and benefits of hydroxychloroquine. Patient agreed to proceed. Will start hydroxychloroquine 200 mg Twice daily Discussed turmeric. Patient will try it Labs before next visit in 3 month (2) Long-term use of hydroxychloroquine: Code(s): Z79.899 - Other longterm (current) drug therapy Plan: Discussed risk of retinopathy with hydroxychloroquine. Patient's cash accountant as my eye doctor in [place]. Advised patient to make a follow-up appointment for hydroxychloroquine screening Plan I spent 27 minutes reviewing patient's chart, evaluating patient, ordering diagnostic workup, counseling patient & her daughter and documenting in the chart Orders: Referrals Ophthalmology Referral Z79.899 - Other intermediate manager (current) drug therapy Medications: New hydroxychloroquine 200 mg PO BID 60 tabs 2RF Coding Level of Care Code Est Pt Level 4 (84371) Diagnoses Rheumatoid arthritis involving multiple sites with positive rheumatoid factor M05.79 Rheumatoid arthritis location: multiple sites Rheumatoid factor presence: with rheumatoid factor Long-term use of hydroxychloroquine Z79.899
[2023-03-05 11:55] VITALS: BP 118/90; PULSE 60; O2SAT 95; BMI 28.9
== END 2023-03-05 14:26 | disposition home or self-care (01) ==
LOC: HO.RHE 11:51
PROVIDERS: PCP Family Medicine; Visit Provider Student in an Organized Health Care Education/Training Program
DX: M05.79 Rheumatoid arthritis with rheumatoid factor of multiple sites without organ or systems involvement (principal); Z79.899 Other long term (current) drug therapy
CPT/HCPCS: 99214

== ENCOUNTER → 2023-03-05 11:51 | Outpatient (BNVA) | payer OTHER, SELFPAY | PROVIDERS: PCP Family Medicine; Visit Provider Student in an Organized Health Care Education/Training Program | DX: M05.79 Rheumatoid arthritis with rheumatoid factor of multiple sites without organ or systems involvement (principal); Z79.899 Other long term (current) drug therapy | CPT/HCPCS: 99212 ==

== ENCOUNTER 2023-03-26 12:49 | Outpatient (AMB) | payer OTHER, SELFPAY ==
[2023-03-26 13:06] VITALS: BP 118/70; PULSE 68; O2SAT 97; BMI 28.6
--- NOTE | 2023-03-26 13:06 | A.OFFPC_ITS ---
Vital Signs 03/26/23 13:06 Height 5 ft 5 in Weight 172 lb BMI 28.6 BP 118/70 Blood Pressure Location Lt brachial Position Sitting Pulse 68 Pulse Oximetry (%) 97 Oxygen Delivery Method Room Air Intake Visit Reasons: Extended exam with f/u labs and health maint. Intake Note: Patient is here for extended exam, and A1C testing. Patient needs refill fo Gabapentin and Baclofen. Allergies seafood Allergy (Unknown, Verified 03/26/23 13:10) rash, GI upset losartan Adverse Reaction (Severe, Verified 03/26/23 13:10) blurry vision, muscle pain. Medication List - Last Reconciled 03/26/23 by Clifford Cowan MD amitriptyline 50 mg PO BEDTIME 90 days amlodipine 5 mg PO DAILY baclofen 10 mg PO DAILY 90 days bisacodyl (Dulcolax (bisacodyl)) 10 mg [place] DAILY PRN blood sugar diagnostic (FreeStyle Lite Strips) Test Blood sugar 2 times a day As directed, 90 days diclofenac sodium 1% 2 grams topical QID 30 days gabapentin 600 mg PO TID 90 days glipizide ER 5 mg PO DAILY 30 days Grab bar Daily As directed, 999 days hydroxychloroquine 200 mg PO BID ketotifen fumarate 0.025%(0.035%) (Alaway) 1 drp ophthalmic (eye) Q12H PRN 30 days metformin 500 mg PO BID 30 days miscellaneous medical supply Diabetic shoes. Daily As directed, 999 days/lifetime. Disp #1 pair miscellaneous medical supply Custom Right AFOy, daily As directed. 999 days/lifetime. Disp #1 ofloxacin 0.3% 5 drps otic (ears) DAILY 7 days omeprazole 40 mg PO DAILY sennosides-docusate sodium 8.6-50 mg (Laxative Stool Softener With Senna) 1 tab- cap PO BID 1 month Shower Chair (Chair, shower) Daily As directed, 999 days simethicone (Gas Relief (simethicone)) 80 mg PO BID-QID PRN 30 days topiramate 25 mg PO DAILY triamcinolone acetonide 0.1% 1 appl topical BID 15 days valsartan 160 mg PO DAILY Tobacco use date assessed: 01/14/23 Dental Screening Dental Screen Date: 03/26/23 Did you have a dental visit in the last 12 months?: Yes Did you have a dental problem in the last 6 months where you did not have access to dental care?: No Was dental information given to patient?: Patient has dentist HPI Extended exam with f/u labs and health maint. HPI Details 62 y/o female presents for an extended e xam with f/u labs and health maintenance. A1c today 03/26/23 6.6%. She is on glipizide 5mg daily and metformin 500mg b.i.d. No recent labs to review. Blood pressure today 118/70. She is on valsartan 160mg daily, amlodipine 5mg. Recent MRI shows apparent normal pressure hydrocephalus. She reports she has not seen neurology yet for this. Pt had a mammogram at [facility] recently. Most recent bone density test did show some osteopenia. They report pt had colonoscopy at [place]. [facility] Medical History Acquired right foot drop Chronic abdominal pain Plasma cell disorder Diabetes mellitus GERD (gastroesophageal reflux disease) HTN (hypertension) Elevated rheumatoid factor Surgical History History of hand surgery History of back surgery No pertinent past surgical history Family History Father No problems noted. Mother CVD (cardiovascular disease) Diabetes Sister In good health Son In good health Daughter In good health Social History Housing: Apartment Are you a primary healthcare administration internship to a significant other at home: No Do you presently have visiting nurse or other home services: No Alcohol intake: never Patient Tobacco Use Status: Never used Tobacco e-Cigarette/Vaping Use: Never Used Second Hand Smoke Exposure: No service: No Current occupational status: unemployed and disabled Current occupation: right handed Current occupational exposures/hazards: No Cognitive needs: No Hearing needs: No Vision needs: Yes Questionnaire Thrive Questionnaire Date Thrive assessed: 08/24/20 ALEXA-7 AMB Questionnaire ALEXA-7 Date ALEXA - 7 assessed: 11/21/21 Source: Developed by Drs. Kang West, Rebecca Griffith, Efrain Allison and colleagues, with an educational lynne from [employer]. Review of Systems Const Denies chills, Denies fatigue, Denies fever(s), Denies headache(s) and Denies weakness Eyes Denies change in vision ENT Denies dizziness, Denies headache(s), Denies hearing loss, Denies nasal congestion, Denies sinus pain, Denies sinus pressure and Denies sore throat Card Denies chest pain, Denies lightheadedness, Denies dyspnea and Denies other (palpitations) Resp Denies cough, Denies dyspnea and Denies wheezing GI Denies abdominal pain, Denies melena, Denies hematochezia, Denies change in bowel habits, Denies dyspepsia and Denies nausea Denies hematuria and Denies dysuria Musc Denies abnormal gait, Denies myalgias, Denies arthralgias, Denies numbness and Denies tingling Skin/Breast Denies rash, Denies unusual bruising and Denies wounds Neuro Denies abnormal gait, Denies dizziness, Denies headache(s), Denies memory loss, Denies numbness, Denies Sensory deficit (Neuro), Denies tingling and Denies weakness Psych Denies anxiety, Denies depression and Denies memory loss Endo Denies cold intolerance, Denies fatigue, Denies heat intolerance, Denies polydipsia and Denies polyuria Sal/Lymph Denies easy bleeding and Denies easy bruising Aller/Immun Denies wheezing Physical exam (Primary Care) Vital Signs: Last Vital Signs Pulse 68 03/26/23 13:06 BP 118/70 03/26/23 13:06 Pulse Ox 97 03/26/23 13:06 Oxygen Delivery Method Room Air 03/26/23 13:06 BMI result Body Mass Index 28.6 Tobacco/Smoking Status: Tobacco use Status Tobacco use date assessed 01/14/23 03/26/23 13:08 Patient Tobacco Use Status Never used Tobacco 03/26/23 13:08 e-Cigarette/Vaping Use Never Used 03/26/23 13:08 Thrive Assessment: Date of Thrive Assessment Date Thrive assessed 08/24/20 03/26/23 13:08 Const General: no acute distress, well developed, alert and awake Nutritional Appearance: well nourished Orientation/consciousness: patient oriented x3 HENMT Head: Yes normocephalic and Yes atraumatic Ears: hearing grossly normal bilaterally and TM's normal bilaterally General nose exam: Normal external nose present and Normal nares present Mouth: Normal oral and palatal mucosa present and moist mucous membranes Teeth and gingiva: dentition normal Throat: Yes posterior oropharynx normal Eyes General: appearance normal, both eyes and all related structures Pupils: Equal, round and reactive pupils present and Pupil accommodation reflex normal EOM: EOMs intact bilaterally Neck Neck: Yes normal visual inspection, Yes no lymphadenopathy and Yes trachea midline Thyroid: Thyroid normal Carotids: no bruits Lymphatic: no lymphadenopathy noted Chest Chest palpation & inspection: normal inspection of the chest Resp Effort & Inspection: normal respiratory effort Auscultation: clear to auscultation bilaterally Cardio Rate: regular rate Rhythm: regular rhythm Heart sounds: S1 normal heart sound present, S2 normal heart sound present, no gallops, no murmurs and no rubs Bruits: no abdominal aortic bruits and no carotid bruits GI Palpation (GI): No Abdominal aortic bruit present, Soft to palpation, nontender, No hepatosplenomegaly present and No Rebound tenderness present Auscultation: normal bowel sounds General: Yes no CVA tenderness Back/Spine/Pelvis Back: no CVA tenderness Cervical Spine: cervical ROM normal and No Cervical spine tenderness Thoracic/Lumbar Spine: thoraco-lumbar ROM normal, No pain with thoraco-lumbar ROM, No thoracic spinal tenderness and No lumbar spinal tenderness Skin Lesions: no lesions Rashes: no rashes Trauma: no lacerations or abrasions Wounds: no wounds Nails: normal Neuro General: patient oriented x3 Cranial nerves: Yes Equal, round and reactive pupils present Cognition (Neuro): normal cognition Gait exam (Neuro): Normal gait present Motor exam (neuro): 5/5 motor strength present throughout Sensory Exam: No Sensory deficit (Neuro) Deep tendon reflexes (DTR's): Right patellar reflex intensity grade: 2+ and Left patellar reflex intensity grade: 2+ Extrem General: Yes normal to inspection and No edema Psych Appearance: grossly normal Affect: normal affect Attitude: cooperative Thought process: Normal thought process present Results AMB Hemoglobin A1c AMB Hemoglobin A1c 6.6 % Last Edit by Berta Agarwal CMA on 03/26/23 13:24 Results Reviewed Results Reviewed: Laboratory Last Values Hgb A1c (Clinic) 6.6 % (4.0-6.0) H 03/26/23 13:23 Assessment and Plan Assessment & Plan (1) Rheumatoid arthritis: Comment: ++RF -ve CCP dx 02/2023 Code(s): M06.9 - Rheumatoid arthritis, unspecified Qualifiers: Rheumatoid arthritis location: multiple sites Rheumatoid factor presence: with rheumatoid factor Qualified Code(s): M05.79 - Rheumatoid arthr itis with rheumatoid factor of multiple sites without organ or systems involvement Plan: Patient?appears?much?better?on?hydroxychloroquine?and?followed?by?rheumatology. Continue?current?medications?and?follow-up?with?rheumatology?as?recommended (2) Normal pressure hydrocephalus: Code(s): G91.2 - (Idiopathic) normal pressure hydrocephalus Plan: MRI?shows?apparent?normal?pressure?hydrocephalus Had?referred?her?to?Neurology?but?she?seems?to?have?missed?the?appointment. She?had?been?seen?there?previously?for?right?footdrop Will?ask?the?office?to?see?if?she?can?be?rescheduled. (3) Diabetes type 2, controlled: Code(s): E11.9 - Type 2 diabetes mellitus without complications Qualifiers: Diabetes mellitus complication status: without complication Diabetes mellitus detention insulin use: without terminal press operator use Qualified Code(s): E11.9 - Type 2 diabetes mellitus without complications Plan: A1c?shows?good?control.??Continue?current?medication?regimen Work?at?diabetic?diet?low?in?sugars?and?starches (4) Hypertension, essential: Code(s): I10 - Essential (primary) hypertension Plan: Blood?pressure?is?well?controlled. Goal?is?less?than?140/90 Continue?current?regimen (5) Osteopenia: Code(s): M85.80 - Other specified disorders of bone density and structure, unspecified site Plan: Bone?density?showed?osteopenia Encouraged?exercise We?will?continue?to?follow?every?2?year (6) Breast cancer screening by mammogram: Code(s): Z12.31 - Encounter for screening mammogram for malignant neoplasm of breast Plan: Mammogram?at?[facility]?and?I?am?requesting?report Up-to-date?per?patient (7) Screening for colon cancer: Code(s): Z12.11 - Encounter for screening for malignant neoplasm of colon Plan: Colonoscopy?at?[facility]?and?I?am?requesting?report.??Up-to-date,?per?patient (8) Adult general medical exam: Code(s): Z00.00 - Encounter for general adult medical examination without abnormal findings Plan: 62-year-old?female?presents?for An?extended?exam. Encouraged?healthy?diet?with?active?lifestyle?and?exercise?as?tolerated Orders: Orders Microalbumin, Random (w Creat) Today I10 - Essential (primary) hypertension TSH reflex Free T4 Today Z00.00 - Encounter for general adult medical examination without abnormal findings UA and rflx microscopic Today Z00.00 - Encounter for general adult medical examination without abnormal findings Vitamin D 25-OH Total Today E55.9 - Vitamin D deficiency, unspecified AMB Hemoglobin A1c Today Z13.9 - Encounter for screening, unspecified Comprehensive [place]. Panel Fast Today Z00.00 - Encounter for general adult medical examination without abnormal findings Complete Blood Count Auto Diff Today Z00.00 - Encounter for general adult medical examination without abnormal findings Lipid Panel Today Z00.00 - Encounter for general adult medical examination without abnormal findings Vitamin B12 and Folate Today E53.8 - Deficiency of other specified B group vitamins Coding Level of Care Code Est Pt Level 4 (84720) Diagnoses Rheumatoid arthritis involving multiple sites with positive rheumatoid factor M05.79 Rheumatoid arthritis location: multiple sites Rheumatoid factor presence: with rheumatoid factor Normal pressure hydrocephalus G91.2 Controlled type 2 diabetes mellitus without complication, without long-term current use of insulin E11.9 Diabetes mellitus complication status: without complication Diabetes mellitus detention insulin use: without terminal press operator use Hypertension, essential I10 Osteopenia M85.80 Breast cancer screening by mammogram Z12.31 Screening for colon cancer Z12.11 Adult general medical exam Z00.00
== END 2023-03-26 13:56 | disposition home or self-care (01) ==
PROVIDERS: PCP Family Medicine; Visit Provider Family Medicine
DX: Z00.00 Encounter for general adult medical examination without abnormal findings (principal); M05.79 Rheumatoid arthritis with rheumatoid factor of multiple sites without organ or systems involvement; G91.2 (Idiopathic) normal pressure hydrocephalus; E11.9 Type 2 diabetes mellitus without complications; I10 Essential (primary) hypertension; M85.80 Other specified disorders of bone density and structure, unspecified site; Z12.31 Encounter for screening mammogram for malignant neoplasm of breast; Z12.11 Encounter for screening for malignant neoplasm of colon
CPT/HCPCS: 83036; 99396

== ENCOUNTER 2023-05-08 13:33 | Outpatient (AMB) | payer OTHER, SELFPAY ==
--- NOTE | 2023-05-08 13:51 | A.OFFPC_ITS ---
Vital Signs 05/08/23 17:00 Height 5 ft 5 in BP 138/70 Blood Pressure Location Lt brachial Position Sitting Pulse 69 Pulse Source Pulse Oximeter Pulse Oximetry (%) 96 Oxygen Delivery Method Room Air Intake Visit Reasons: elev bp, pink eye Allergies seafood Allergy (Unknown, Verified 05/08/23 13:53) rash, GI upset losartan Adverse Reaction (Severe, Verified 05/08/23 13:53) blurry vision, muscle pain. Medication List - Last Reconciled 05/08/23 by Emma Granado, IRRIGATOR HEAD- amitriptyline 50 mg PO BEDTIME 90 days amlodipine 5 mg PO DAILY baclofen 10 mg PO DAILY 90 days bisacodyl (Dulcolax (bisacodyl)) 10 mg [place] DAILY PRN blood sugar diagnostic (FreeStyle Lite Strips) Test Blood sugar 2 times a day As directed, 90 days diclofenac sodium 1% 2 grams topical QID 30 days gabapentin 600 mg PO TID 90 days glipizide ER 5 mg PO DAILY 30 days Grab bar Daily As directed, 999 days hydroxychloroquine 200 mg PO BID ketotifen fumarate 0.025%(0.035%) ([place]away) 1 drp ophthalmic (eye) Q12H PRN 30 days metformin 500 mg PO BID 30 days miscellaneous medical supply Diabetic shoes. Daily As directed, 999 days/lifetime. Disp #1 pair miscellaneous medical supply Custom Right AFOy, daily As directed. 999 days/lifetime. Disp #1 ofloxacin 0.3% 5 drps otic (ears) DAILY 7 days omeprazole 40 mg PO DAILY sennosides-docusate sodium 8.6-50 mg (Laxative Stool Softener With Senna) 1 tab-cap PO BID 1 month Shower Chair (Chair, shower) Daily As directed, 999 days simethicone (Gas Relief (simethicone)) 80 mg PO BID-QID PRN 30 days topiramate 25 mg PO DAILY triamcinolone acetonide 0.1% 1 appl topical BID 15 days valsartan 160 mg PO DAILY Tobacco use date assessed: 01/14/23 HPI HPI Comments History of Present Illness Details Here today with daughter who helps with language barrier. Reports that over the last few days blood pressure has been elevated. The highest that it has been has been 170/90 associated with a bloody nose occurring on the right side. They were able to control the bloody nose at home. The patient's self- treated with increasing her Norvasc from 5 mg to 10 mg over the last 2 days. The last time she took this was last night. Has monitor the blood pressure after increasing the Norvasc to 10 mg and reports improvements with a systolic blood pressure of 138/88. She does report a headache today. However reports that this is more chronic as she is being followed by a neurosurgeon. Admits a cough. Has not present for a few days. Was using Coricidin HBP. Stopped using this as she correlated elevation blood pressure with the use of Coricidin. Finally she did have some irritation to her eyes of what she was using ketotifen fum 0.035% with great effect. However this prescription that she has and she is hoping to get a refill. [facility] Medical History Acquired right foot drop Chronic abdominal pain Plasma cell disorder Diabetes mellitus GERD (gastroesophageal reflux disease) HTN (hypertension) Elevated rheumatoid factor Surgical History History of hand surgery History of back surgery No pertinent past surgical history Family History Father No problems noted. Mother CVD (cardiovascular disease) Diabetes Sister In good health Son In good health Daughter In good health Social History Housing: Apartment Are you a primary aged or disabled carer to a significant other at home: No Do you presently have visiting nurse or other home services: No Alcohol intake: never Patient Tobacco Use Status: Never used Tobacco e-Cigarette/Vaping Use: Never Used Second Hand Smoke Exposure: No service: No Current occupational status: unemployed and disabled Current occupation: right handed Current occupational exposures/hazards: No Cognitive needs: No Hearing needs: No Vision needs: Yes Questionnaire Thrive Questionnaire Date Thrive assessed: 08/24/20 ALEXA-7 AMB Questionnaire ALEXA-7 Date ALEXA - 7 assessed: 11/21/21 Source: Developed by Drs. Kang West, Rebecca B.W. Efrain Griffith and colleagues, with an educational lynne from [employer]. Review of Systems Const All systems reviewed & are unremarkable except as noted in HPI and below Physical exam (Primary Care) Tobacco/Smoking Status: Tobacco use Status Tobacco use date assessed 01/14/23 05/08/23 13:56 Patient Tobacco Use Status Never used Tobacco 05/08/23 13:56 e-Cigarette/Vaping Use Never Used 05/08/23 13:56 Thrive Assessment: Date of Thrive Assessment Date Thrive assessed 08/24/20 05/08/23 13:56 Const Other: Awake alert in no acute distress accompanied by daughter Sclera and conjunctiva clear bilat. No lid edema. No drainage. PERRLA Right anterior Nares with a coagulated area Regular rate and rhythm Lung sounds clear to auscultation bilat Assessment and Plan Assessment & Plan (1) Hypertension, essential: Comment: Blood pressure acceptable on exam today. We will have her continue to take Norvasc 10 mg at HS and continue her valsartan 160 mg in the morning. I have sent in a new prescription for the Norvasc 10 mg. She should continue to monitor blood pressure daily and follow up with her primary care in 1 week to ensure that her blood pressure remains at goal. Code(s): I10 - Essential (primary) hypertension (2) Itchy eyes: Comment: Refill sent on eyedrops Code(s): R68.89 - Other general symptoms and signs (3) Normal pressure hydrocephalus: Comment: As she complains of a headache to me today I have encouraged her to place a call to the neurosurgeon who was following her to update them and see if there is any intervention needed. The daughter states that she will call today. Code(s): G91.2 - (Idiopathic) normal pressure hydrocephalus (4) Cough: Comment: Benign exam today. Supportive care only. Avoid use of Coricidin HBP if you can correlate this with elevation in your blood pressure. Even though this medication is safe to use for patients with hypertension, advised to avoid at this time. If symptoms continue or worsen advised to seek medical care. Appointment to be arranged next week with primary care for close follow-up. Code(s): R05.9 - Cough, unspecified Plan This note is constructed using voice recognition software. While every effort has been made to ensure accuracy in electrical power engineer, still errors may have been included Sometimes, these errors may affect the content or meaning of the given sentence . Total time spent caring for the patient today was 30 minutes. This includes time spent before the visit reviewing the chart, time spent during the visit, and time spent after the visit on documentation Medications: New amlodipine 10 mg PO DAILY 30 tabs 0RF Refilled ketotifen fumarate 0.025%(0.035%) (Alaway) 1 drp ophthalmic (eye) Q12H 30 days PRN 5 mL 2RF allergy symptoms Discontinued amlodipine Discontinued Reason: Doctor's Order 5 mg PO DAILY 90 tabs 1RF I10 - Essential (primary) hypertension Coding Level of Care Code Est Pt Level 4 (47459) Diagnoses Hypertension, essential I10 Itchy eyes R68.89 Normal pressure hydrocephalus G91.2 Cough R05.9
[2023-05-08 17:00] VITALS: BP 138/70; PULSE 69; O2SAT 96
== END 2023-05-08 14:18 | disposition home or self-care (01) ==
PROVIDERS: PCP Family Medicine; Visit Provider Nurse Practitioner Family
DX: I10 Essential (primary) hypertension (principal); R68.89 Other general symptoms and signs; G91.2 (Idiopathic) normal pressure hydrocephalus; R05.9 Cough, unspecified
CPT/HCPCS: 99214

== ENCOUNTER 2023-06-04 15:21 | Outpatient (AMB) | payer OTHER, SELFPAY ==
--- NOTE | 2023-06-04 15:39 | A.OFFVIS_ITS ---
Vital Signs 06/04/23 15:40 Height 5 ft 5 in Weight 174 lb 2.643 oz BMI 29.0 BP 124/68 Blood Pressure Location Rt brachial Position Sitting Pulse 69 Pulse Source Pulse Oximeter Pulse Oximetry (%) 96 Oxygen Delivery Method Room Air Intake Visit Reasons: RA Intake Note: Patient last seen 03/05/23 presents today for follow up and test results. Distribution Operations Manager Required: Yes Distribution Operations Manager Name: Daughter - form signed Accompanied by: Daughter Allergies seafood Allergy (Unknown, Verified 06/04/23 15:43) rash, GI upset losartan Adverse Reaction (Severe, Verified 06/04/23 15:43) blurry vision, muscle pain. Medication List - Last Reconciled 06/04/23 by Kana Mendosa MD amitriptyline 50 mg PO BEDTIME 90 days amlodipine 10 mg PO DAILY baclofen 10 mg PO DAILY 90 days bisacodyl (Dulcolax (bisacodyl)) 10 mg [place] DAILY PRN blood sugar diagnostic (FreeStyle Lite Strips) Test Blood sugar 2 times a day As directed, 90 days diclofenac sodium 1% 2 grams topical QID 30 days gabapentin 600 mg PO TID 90 days glipizide ER 5 mg PO DAILY 30 days Grab bar Daily As directed, 999 days hydroxychloroquine 200 mg PO BID ketotifen fumarate 0.025%(0.035%) ([place]away) 1 drp ophthalmic (eye) Q12H PRN 30 days metformin 500 mg PO BID 30 days miscellaneous medical supply Diabetic shoes. Daily As directed, 999 days/lifetime. Disp #1 pair miscellaneous medical supply Custom Right AFOy, daily As directed. 999 days/lifetime. Disp #1 ofloxacin 0.3% 5 drps otic (ears) DAILY 7 days omeprazole 40 mg PO DAILY sennosides-docusate sodium 8.6-50 mg (Laxative Stool Softener With Senna) 1 tab- cap PO BID 1 month Shower Chair (Chair, shower) Daily As directed, 999 days simethicone (Gas Relief (simethicone)) 80 mg PO BID-QID PRN 30 days topiramate 25 mg PO DAILY triamcinolone acetonide 0.1% 1 appl topical BID 15 days valsartan 160 mg PO DAILY HPI Comments Details: 62-year-old female with seropositive RA returns for follow-up. She states that she took hydroxychloroquine regularly for 1 month but did not refill it. She can not recall any side effects attributed to hydroxychloroquine. She continues to have generalized pain. Has been having some swelling of her right hand knuckles. Initial history: This is a 62-year-old female who presents for evaluation of polyarthralgias and positive rheumatoid factor. She was evaluated by Dr. Patton in 2019 and was deemed not to have an autoimmune rheumatic disease. Patient complains of bilateral hand pain and stiffness, bilateral pain in her feet. She has morning stiffness lasting 30 minutes. She states that she has had right footdrop since 2015 which improved after back surgery. She wears a brace for her left ankle and uses a cane. She has bilateral carpal tunnel syndrome. She did right hand carpal tunnel release surgery. She states that she has not improved much after the surgery. She is unaware of any family history of an autoimmune rheumatic disease. She denies any history of DVT/PE. She had 10 pregnancies in total, 3 miscarriages. [facility] Medical History Acquired right foot drop Chronic abdominal pain Plasma cell disorder Diabetes mellitus GERD (gastroesophageal reflux disease) HTN (hypertension) Elevated rheumatoid factor Surgical History History of hand surgery History of back surgery No pertinent past surgical history Family History Father No problems noted. Mother CVD (cardiovascular disease) Diabetes Sister In good health Son In good health Daughter In good health Social History Housing: Apartment Are you a primary career services coordinator to a significant other at home: No Do you presently have visiting nurse or other home services: No Alcohol intake: never Patient Tobacco Use Status: Never used Tobacco e-Cigarette/Vaping Use: Never Used Second Hand Smoke Exposure: No service: No Current occupational status: unemployed and disabled Current occupation: right handed Current occupational exposures/hazards: No Cognitive needs: No Hearing needs: No Vision needs: Yes Review of Systems Musc Reports abnormal gait, Reports arthralgias, Reports limited range of motion and Reports stiffness Neuro Reports abnormal gait Physical Exam Vital Signs: Last Vital Signs Pulse 69 06/04/23 15:40 BP 124/68 06/04/23 15:40 Pulse Ox 96 06/04/23 15:40 Oxygen Delivery Method Room Air 06/04/23 15:40 BMI result Body Mass Index 29.0 Const General: cooperative, healthy appearing and comfortable Nutritional Appearance: overweight Orientation/consciousness: patient oriented x3 Limitations: ambulation with cane HEENT Head: Yes normocephalic and Yes atraumatic Mouth: moist mucous membranes Resp Effort & Inspection: normal respiratory effort and able to speak in complete sentences Neuro Other: Right footdrop General: patient oriented x3 Extrem Other: Patient has a right ankle brace. Does not have left knee brace today Mild puffiness of right wrist and tenderness to palpation and pain with flexion and extension Left wrist without swelling , tenderness or pain with flexion and extension Right 2nd and 3rd MCP puffiness and tenderness Negative MCP squeeze test bilaterally Normal nailfold capillaroscopy no elbow pain with full flexion-extension bilaterally No knee pain with full flexion and extension No ankle swelling or tenderness bilaterally Assessment & Plan Assessment & Plan (1) Rheumatoid arthritis: Comment: ++RF -ve CCP dx 02/2023 HCQ 02/2023 took for 1 month then ran out Code(s): M06.9 - Rheumatoid arthritis, unspecified Category: Medical Qualifiers: Rheumatoid arthritis location: multiple sites Rheumatoid factor presence: with rheumatoid factor Qualified Code(s): M05.79 - Rheumatoid arthritis with rheumatoid factor of multiple sites without organ or systems involvement Plan: This is a 62-year-old female with seropositive RA returns for follow-up. Last visit I prescribed hydroxychloroquine. Patient took it only for 1 month then ran out. Did not do any refills. On exam today however she has less swollen and tender joints but continues to have active disease. Advised patient to continue with hydroxychloroquine regularly for 3 months Labs before next visit in 3 month (2) Long-term use of hydroxychloroquine: Code(s): Z79.899 - Other correction (current) drug therapy Category: Medical Plan: Discussed risk of retinopathy with hydroxychloroquine. Patient had an eye exam January of 2023, hydroxychloroquine screening was not performed. Patient stated that her next eye exam would be around January of 2024. Plan I spent 27 minutes reviewing patient's chart, evaluating patient, ordering diagnostic workup, counseling patient & her daughter and documenting in the chart Orders: Orders Comprehensive Met. Panel 3 Months M05.79 - Rheumatoid arthritis with rheumatoid factor of multiple sites without organ or systems involvement C Reactive Protein 3 Months M05.79 - Rheumatoid arthritis with rheumatoid factor of multiple sites without organ or systems involvement Erythrocyte Sedimentation Rate 3 Months M05.79 - Rheumatoid arthritis with rheumatoid factor of multiple sites without organ or systems involvement Complete Blood Count Auto Diff 3 Months M05.79 - Rheumatoid arthritis with rheumatoid factor of multiple sites without organ or systems involvement Medications: Refilled hydroxychloroquine 200 mg PO BID 180 tabs 1RF
[2023-06-04 15:40] VITALS: BP 124/68; PULSE 69; O2SAT 96; BMI 29.0
== END 2023-06-04 16:19 | disposition home or self-care (01) ==
PROVIDERS: PCP Family Medicine; Visit Provider Student in an Organized Health Care Education/Training Program
DX: M05.79 Rheumatoid arthritis with rheumatoid factor of multiple sites without organ or systems involvement (principal); Z79.899 Other long term (current) drug therapy
CPT/HCPCS: 99214

== ENCOUNTER → 2023-06-04 15:21 | Outpatient (BNVA) | payer OTHER, SELFPAY | PROVIDERS: PCP Family Medicine; Visit Provider Student in an Organized Health Care Education/Training Program | DX: M06.9 Rheumatoid arthritis, unspecified (principal); Z79.899 Other long term (current) drug therapy | CPT/HCPCS: 99212 ==

== ENCOUNTER 2023-07-22 08:25 | Outpatient (AMB) | payer OTHER, SELFPAY ==
--- NOTE | 2023-07-22 08:28 | MHC.PC.OV ---
Vital Signs 07/22/23 08:29 Height 5 ft 5 in Weight 175 lb 6 oz BMI 29.2 BP 136/74 Blood Pressure Location Rt brachial Position Sitting Respiration 14 Pulse 69 Pulse Source Pulse Oximeter Temp 97.8 F Temp Source Temporal Artery Scan Pulse Oximetry (%) 99 Oxygen Delivery Method Room Air Intake Visit Reasons: F/U hypertension, diabetes and CPE-labs Intake Note: Patient has been experiencing back pain and it has been getting worse. Patient has been experiencing a rash for longer than a month and that it is itchy. Patient needs refill on her Bisacodyl. Conductor Sleeping Car Required: Yes Conductor Sleeping Car Name: daughter Accompanied by: Daughter Allergies seafood Allergy (Unknown, Verified 07/22/23 08:41) rash, GI upset losartan Adverse Reaction (Severe, Verified 07/22/23 08:41) blurry vision, muscle pain. Medication List - Last Reconciled 07/22/23 by Clifford Cowan MD amitriptyline 50 mg PO BEDTIME 90 days amlodipine 10 mg PO DAILY baclofen 10 mg PO DAILY 90 days bisacodyl (Dulcolax (bisacodyl)) 10 mg [place] DAILY PRN blood sugar diagnostic (FreeStyle Lite Strips) Test Blood sugar 2 times a day As directed, 90 days diclofenac sodium 1% 2 grams topical QID 30 days gabapentin 600 mg PO TID 90 days glipizide ER 5 mg PO DAILY 30 days Grab bar Daily As directed, 999 days hydroxychloroquine 200 mg PO BID ketotifen fumarate 0.025%(0.035%) (Alaway) 1 drp ophthalmic (eye) Q12H PRN 30 days metformin 500 mg PO BID 90 days miscellaneous medical supply Diabetic shoes. Daily As directed, 999 days/lifetime. Disp #1 pair miscellaneous medical supply Custom Right AFOy, daily As directed. 999 days/lifetime. Disp #1 ofloxacin 0.3% 5 drps otic (ears) DAILY 7 days omeprazole 40 mg PO DAILY sennosides-docusate sodium 8.6-50 mg (Laxative Stool Softener With Senna) 1 tab-cap PO BID 1 month Shower Chair (Chair, shower) Daily As directed, 999 days simethicone (Gas Relief (simethicone)) 80 mg PO BID-QID PRN 30 days topiramate 25 mg PO DAILY triamcinolone acetonide 0.1% 1 appl topical BID 15 days valsartan 160 mg PO DAILY Tobacco use date assessed: 07/22/23 Dental Screening Dental Screen Date: 07/22/23 Did you have a dental visit in the last 12 months?: No Did you have a dental problem in the last 6 months where you did not have access to dental care?: No Was dental information given to patient?: Patient has dentist HPI F/U hypertension, diabetes and CPE-labs HPI Details 62 y/o female presents to f/u diabetes, hypertension. A1c today 07/22/23 6.5%. Diabetic eye exam in January was fine. Pt reports back pain which has been worsening. Blood pressure today 136/74. She is on valsartan 160mg, amlodipine 10mg daily. Pt has complaints of a rash on her forearm. [facility] Medical History Acquired right foot drop Chronic abdominal pain Plasma cell disorder Diabetes mellitus GERD (gastroesophageal reflux disease) HTN (hypertension) Elevated rheumatoid factor Surgical History History of hand surgery History of back surgery No pertinent past surgical history Family History Father No problems noted. Mother CVD (cardiovascular disease) Diabetes Sister In good health Son In good health Daughter In good health Social History Housing: Apartment Are you a primary cardiac care unit nurse to a significant other at home: No Do you presently have visiting nurse or other home services: No Alcohol intake: never Patient Tobacco Use Status: Never used Tobacco e-Cigarette/Vaping Use: Never Used Second Hand Smoke Exposure: No service: No Current occupational status: unemployed and disabled Current occupation: right handed Current occupational exposures/hazards: No Cognitive needs: No Hearing needs: No Vision needs: Yes Questionnaire PHQ-9 Over the last 2 weeks, how often have you been bothered by any of the following problems? 1. Little interest or pleasure in doing things: not at all 2. Feeling down, depressed, or hopeless: not at all 3. Trouble falling or staying asleep, or sleeping too much: not at all 4. Feeling tired or having little energy: not at all 5. Poor appetite or overeating: not at all 6. Feeling bad about yourself - or that you are a failure or have let yourself or your family down: not at all 7. Trouble concentrating on things, such as reading the newspaper or watching television: not at all 8. Moving or speaking so slowly that other people could have noticed. Or the opposite - being so fidgety or restless that you have been moving around a lot more than usual: not at all 9. Thoughts that you would be better off or of hurting yourself in some way: not at all Total score: 0 Depression Screening Interpretation: Negative Depression Screening Done: Yes 67054 - PHQ-9 Billing: Yes Source: Developed by Drs. Kang West, Rebecca Griffith, Efrain Allison and colleagues, with an educational lynne from [employer]. Thrive Questionnaire Date Thrive assessed: 08/24/20 I am a: Patient What is your living situation today?: I have a steady place to live Within the past 12 months, did the food you bought not last and you didn't have the money to get more?: Never true Within the past 12 months, did you worry whether your food would run out before you got money to buy more?: Never true Do you have trouble paying for medicines?: Yes Do you have trouble getting transportation to medical appointments?: No Do you have trouble paying your heating and electricity bill?: Yes Do you have trouble taking care of your child, family member or friend?: No Do you have trouble with day-to-day activities such as bathing, preparing meals, shopping, managing finances, etc.?: Yes Are you currently unemployed and looking for a job?: No Are you interested in more education?: No Please select the resources that you would like help with: None Currently or been in a relationship where the following occur: no concerns reported THRIVE Score: 1 AUDIT C Alcohol Use Questionnaire (AUDIT-C) 1. How often do you have a drink containing alcohol?: Never 3. How often do you have six or more drinks on one occasion?: Never Total Score: 0 AELXA-7 AMB Questionnaire ALEXA-7 Date ALEXA - 7 assessed: 07/22/23 Feeling nervous, anxious, or on edge: 0 = Not at all Not being able to stop or control worryin = Not at all Worrying too much about different things: 0 = Not at all Trouble relaxin = Not at all Being so restless that it is hard to sit still: 0 = Not at all Becoming easily annoyed or irritable: 0 = Not at all Feeling afraid as if something awful might happen: 0 = Not at all Total ALEXA-7 score (0-4 normal; 5-9 mild; 10-14 moderate; 15-21 severe): 0 Source: Developed by Drs. Kang West, Rebecca Griffith, Efrain Allison and colleagues, with an educational lynne from [employer]. ALEXA-7 Assessment Billing ALEXA-7 Assessment Tool: ALEXA-7 Assessment 00155 Review of Systems Const Denies chills, Denies fatigue, Denies fever(s), Denies headache(s) and Denies weakness ENT Denies dizziness and Denies headache(s) Card Denies dyspnea Resp Denies cough, Denies dyspnea, Denies wheezing and Denies other (shortness of breath) Musc Reports back pain, Denies numbness and Denies tingling Skin/Breast Reports rash Neuro Denies dizziness, Denies headache(s), Denies numbness, Denies tingling and Denies weakness Psych Denies anxiety and Denies depression Endo Denies fatigue Aller/Immun Denies wheezing Physical exam (Primary Care) Vital Signs: Last Vital Signs Temp 97.8 F 07/22/23 08:29 Pulse 69 07/22/23 08:29 Resp 14 07/22/23 08:29 BP 136/74 07/22/23 08:29 Pulse Ox 99 07/22/23 08:29 Oxygen Delivery Method Room Air 07/22/23 08:29 BMI result Body Mass Index 29.2 Tobacco/Smoking Status: Tobacco use Status Tobacco use date assessed 07/22/23 07/22/23 08:47 Patient Tobacco Use Status Never used Tobacco 07/22/23 08:28 e-Cigarette/Vaping Use Never Used 07/22/23 08:28 PHQ-9: PHQ-9 Score PHQ-9: Total score 0 07/22/23 09:04 Depression Screening Interpretation: Negative Thrive Assessment: Date of Thrive Assessment Date Thrive assessed 08/24/20 07/22/23 08:28 Currently or been in a relationship where the following occur: no concerns reported Const General: well developed; No acute distress Nutritional Appearance: well nourished Orientation/consciousness: patient oriented x3 HENMT Head: Yes normocephalic and Yes atraumatic Eyes General: appearance normal, both eyes and all related structures Pupils: Equal, round and reactive pupils present EOM: EOMs intact bilaterally Resp Effort & Inspection: normal respiratory effort Auscultation: clear to auscultation bilaterally Cardio Rate: regular rate Rhythm: regular rhythm Heart sounds: S1 normal heart sound present, S2 normal heart sound present, no gallops, no murmurs and no rubs Neuro General: patient oriented x3 and gait normal Cranial nerves: Yes Equal, round and reactive pupils present Psych Affect: normal affect Results AMB Hemoglobin A1c AMB Hemoglobin A1c 6.5 % Last Edit by Berta Agarwal CMA on 07/22/23 08:48 Results Reviewed Results Reviewed: Laboratory Last Values Hgb A1c (Clinic) 6.5 % (4.0-6.0) H 07/22/23 08:42 Assessment and Plan Assessment & Plan (1) Diabetes mellitus: Code(s): E11.9 - Type 2 diabetes mellitus without complications Plan: A1c?6.5%?is?good?control.??Goal?is?less?than?7.0% Continue?current?medications Continue?diabetic?diet Diabetic?eye?exam?in?January?was?okay (2) Hypertension, essential: Comment: She should continue to monitor blood pressure daily Code(s): I10 - Essential (primary) hypertension Plan: Daughter?is?controlled.??Goal?is?less?than?140/90 Continue?current?medication?regimen (3) Cerebral ventriculomegaly: Code(s): G93.89 - Other specified disorders of brain Plan: Neurosurgery?does?not?have?high?index?of?suspicion?for?NPH. Patient?has?declined?lumbar?puncture (4) Back pain: Code(s): M54.9 - Dorsalgia, unspecified Plan: Mostly?low?back?pain?which?primarily?seems?to?radiate?upward?according?to?patient She?has?benefited?from?physical?therapy?for?hip?pain Will?send?her?for?physical?therapy?for?back?as?well?as?bilateral?knee?pain-see?below She?can?also?use?Tylenol?or?ibuprofen?and?ice/heat If?not?improving?with?physical?therapy?and?the?above?conservative?care.??Would?image?and?consider?a?referral (5) Rash: Code(s): R21 - Rash and other nonspecific skin eruption Plan: Likely?candidal?rash?of?skin Will?give?her?a?script?for?betamethasone?clotrimazole?cream (6) Bilateral knee pain: Code(s): M25.561 - Pain in right knee; M25.562 - Pain in left knee Plan: Pain?around?bilateral?kneecaps Refer?her?for?physical?therapy.??Ice/heat?and?Tylenol?or?NSAID Orders: Orders PT Evaluation and Treatment Today M25.561 - Pain in right knee, M25.562 - Pain in left knee, M54.9 - Dorsalgia, unspecified AMB Hemoglobin A1c Today Z13.9 - Encounter for screening, unspecified Medications: New clotrimazole-betamethasone 1-0.05 % 1 appl topical BID 2 weeks 30 grams 1RF Changed From amlodipine 10 mg PO DAILY 30 tabs 0RF To amlodipine 10 mg PO DAILY 90 days 90 tabs 2RF Refilled bisacodyl (Dulcolax (bisacodyl)) 10 mg VA DAILY PRN 12 ea 4RF constipation K64.8 - Other hemorrhoids Coding Level of Care Code Est Pt Level 4 (80771) Diagnoses Diabetes mellitus E11.9 Hypertension, essential I10 Cerebral ventriculomegaly G93.89 Back pain M54.9 Rash R21 Bilateral knee pain M25.561; M25.562 Additional Codes ALEXA-7 Assessment Billing - ALEXA-7 Assessment Tool: ALEXA-7 Assessment 13342 ([id number])
[2023-07-22 08:29] VITALS: BP 136/74; PULSE 69; RESP 14; TEMP 36.6; O2SAT 99; BMI 29.2
== END 2023-07-22 09:18 | disposition home or self-care (01) ==
PROVIDERS: PCP Family Medicine; Visit Provider Family Medicine
DX: E11.9 Type 2 diabetes mellitus without complications (principal); I10 Essential (primary) hypertension; G93.89 Other specified disorders of brain; M54.9 Dorsalgia, unspecified; R21 Rash and other nonspecific skin eruption; M25.561 Pain in right knee; M25.562 Pain in left knee
CPT/HCPCS: 83036; 99214

== ENCOUNTER 2023-09-01 10:04 | Outpatient (REF) | payer OTHER, SELFPAY ==
[2023-09-01 10:14] LABS: MANUAL DIFF FLAG NO
[2023-09-01 10:31] LABS: Basophils Percent Auto 0.3 % (0-2); Eosinophils Absolute Auto 0.1 X10*3/uL (0.0-0.4); Hematocrit 40.7 % (37.0-47.0); Hemoglobin 13.6 g/dl (12.0-16.0); Imm Gran Abs Auto 0.02 X10*3/uL (0.00-0.03); Imm Gran Pct Auto 0.3 % (0.0-0.4); Lymphocytes Absolute Auto 2.6 X10*3/uL (1.2-4.9); Lymphocytes Percent Auto 41.7 % (20-40); Mean Corpuscular HGB Conc 33.4 g/dl (31.0-35.0); Mean Corpuscular Volume 89.8 fL (80.0-98.0); Mean Platelet Volume 10.4 fL (9.4-12.3); Monocytes Absolute Auto 0.5 X10*3/uL (0.1-1.2); Neutrophils Absolute Auto 2.9 x10*3/uL (2.0-8.3); Neutrophils Percent Auto 47.7 % (45-73); Platelet Count 221 X10*3/uL (160-400); Red Blood Count 4.53 X10*6/uL (4.20-5.50); Red Cell Distribution Width 12.5 % (11.0-16.0); White Blood Count 6.1 X10*3/uL (4.8-10.8)
[2023-09-01 11:13] LABS: Erythrocyte Sedimentation Rate 9 MM/HR (0-20)
[2023-09-01 11:20] LABS: Alanine Aminotransferase 41 U/L (0-31); Albumin Level 4.3 g/dL (3.5-5.0); Alkaline Phosphatase 63 U/L (39-117); Anion Gap 13 (12-20); Aspartate Amino Transferase 28 U/L (5-31); Bilirubin Total 0.3 mg/dL (0.0-1.0); Blood Urea Nitrogen 9 mg/dL (9-16); C Reactive Protein 0.16 mg/dL (< or = 0.50); Calcium 9.8 mg/dL (8.4-10.2); Carbon Dioxide 25 mmol/L (22-29); Chloride 107 mmol/L (96-108); Estimated Glomerular Filt Rate > 60; Glucose Random 131 mg/dL (60-115); Potassium 4.1 mmol/L (3.3-5.1); Sodium 141 mmol/L (135-145); Total Protein 7.2 g/dL (6.5-8.0)
== END 2023-09-01 10:05 | disposition home or self-care (01) ==
LOC: HO.LAB 10:04
PROVIDERS: PCP Family Medicine; Visit Provider Student in an Organized Health Care Education/Training Program
DX: M05.79 Rheumatoid arthritis with rheumatoid factor of multiple sites without organ or systems involvement (principal)
CPT/HCPCS: 36415; 80053; 85025; 85652; 86140

== ENCOUNTER 2023-09-03 10:20 | Outpatient (AMB) | payer OTHER, SELFPAY ==
--- NOTE | 2023-09-03 10:23 | A.OFFVIS_ITS ---
Vital Signs 09/03/23 10:30 Height 5 ft 5 in Weight 177 lb 7.554 oz BMI 29.5 BP 124/72 Blood Pressure Location Rt brachial Position Sitting Pulse 63 Pulse Source Pulse Oximeter Pulse Oximetry (%) 95 Oxygen Delivery Method Room Air Intake Visit Reasons: RA/cm Intake Note: Patient presents for RA. Time Study Analyst Required: Yes Time Study Analyst Services: Time Study Analyst Present Time Study Analyst Name: Bianca Ornelas Allergies seafood Allergy (Unknown, Verified 09/03/23 10:29) rash, GI upset losartan Adverse Reaction (Severe, Verified 09/03/23 10:29) blurry vision, muscle pain. Medication List - Last Reconciled 09/03/23 by Kana Mendosa MD amitriptyline 50 mg PO BEDTIME 90 days amlodipine 10 mg PO DAILY 90 days baclofen 10 mg PO DAILY 90 days bisacodyl (Dulcolax (bisacodyl)) 10 mg [place] DAILY PRN blood sugar diagnostic (FreeStyle Lite Strips) Test Blood sugar 2 times a day As directed, 90 days clotrimazole-betamethasone 1-0.05 % 1 appl topical BID 2 weeks diclofenac sodium 1% 2 grams topical QID 30 days gabapentin 600 mg PO TID 90 days glipizide ER 5 mg PO DAILY 30 days Grab bar Daily As directed, 999 days hydroxychloroquine 200 mg PO BID ketotifen fumarate 0.025%(0.035%) ([place]away) 1 drp ophthalmic (eye) Q12H PRN 30 days metformin 500 mg PO BID 90 days miscellaneous medical supply Diabetic shoes. Daily As directed, 999 days/lifetime. Disp #1 pair miscellaneous medical supply Custom Right AFOy, daily As directed. 999 days/lifetime. Disp #1 ofloxacin 0.3% 5 drps otic (ears) DAILY 7 days omeprazole 40 mg PO DAILY sennosides-docusate sodium 8.6-50 mg (Laxative Stool Softener With Senna) 1 tab- cap PO BID 1 month Shower Chair (Chair, shower) Daily As directed, 999 days simethicone (Gas Relief (simethicone)) 80 mg PO BID-QID PRN 30 days topiramate 25 mg PO DAILY triamcinolone acetonide 0.1% 1 appl topical BID 15 days valsartan 160 mg PO DAILY HPI Comments Details: 62-year-old female with seropositive RA returns for follow-up. She has been taking hydroxychloroquine 200 mg Twice daily for the last 3 months. She states that she has good and bad days. Intermittent pain and swelling of her fingers. Usually related to change in weather and use. Can not think of any side effects related to hydroxychloroquine. Initial history: This is a 62-year-old female who presents for evaluation of polyarthralgias and positive rheumatoid factor. She was evaluated by Dr. Patton in 2019 and was deemed not to have an autoimmune rheumatic disease. Patient complains of bilateral hand pain and stiffness, bilateral pain in her feet. She has morning stiffness lasting 30 minutes. She states that she has had right footdrop since 2014 which improved after back surgery. She wears a brace for her left ankle and uses a cane. She has bilateral carpal tunnel syndrome. She did right hand carpal tunnel release surgery. She states that she has not improved much after the surgery. She is unaware of any family history of an autoimmune rheumatic disease. She denies any history of DVT/PE. She had 10 pregnancies in total, 3 miscarriages. [facility] Medical History Acquired right foot drop Chronic abdominal pain Plasma cell disorder Diabetes mellitus GERD (gastroesophageal reflux disease) HTN (hypertension) Elevated rheumatoid factor Surgical History History of hand surgery History of back surgery No pertinent past surgical history Family History Father No problems noted. Mother CVD (cardiovascular disease) Diabetes Sister In good health Son In good health Daughter In good health Social History Housing: Apartment Are you a primary lpn care manager to a significant other at home: No Do you presently have visiting nurse or other home services: No Alcohol intake: never Patient Tobacco Use Status: Never used Tobacco e-Cigarette/Vaping Use: Never Used Second Hand Smoke Exposure: No service: No Current occupational status: unemployed and disabled Current occupation: right handed Current occupational exposures/hazards: No Cognitive needs: No Hearing needs: No Vision needs: Yes Female Reproductive History Menstrual Total pregnancies: 10 Number of Living Children: 7 Ab spontaneous: 3 Review of Systems Musc Reports abnormal gait, Reports arthralgias, Reports limited range of motion and Reports stiffness Neuro Reports abnormal gait Physical Exam Vital Signs: Last Vital Signs Pulse 63 09/03/23 10:30 BP 124/72 09/03/23 10:30 Pulse Ox 95 09/03/23 10:30 Oxygen Delivery Method Room Air 09/03/23 10:30 BMI result Body Mass Index 29.5 Const General: cooperative, healthy appearing and comfortable Nutritional Appearance: overweight Orientation/consciousness: patient oriented x3 Limitations: ambulation with walker HEENT Head: Yes normocephalic and Yes atraumatic Mouth: moist mucous membranes Resp Effort & Inspection: normal respiratory effort and able to speak in complete sentences Skin General skin exam: no rashes or lesions noted Neuro Other: Right footdrop General: patient oriented x3 Extrem Other: Patient has a right ankle brace. Right wrist pain with full extension but no swelling or tenderness Left wrist pain with flexion and extension Few tender PIPs bilaterally but no swelling Negative MCP squeeze test bilaterally No flexor tendon tenderness bilaterally Normal nailfold capillaroscopy no elbow pain with full flexion-extension bilaterally Left knee pain with full flexion, left knee cramped No ankle swelling or tenderness bilaterally Assessment & Plan Assessment & Plan (1) Rheumatoid arthritis: Comment: ++RF -ve CCP dx 02/2023 HCQ 05/2023 Code(s): M06.9 - Rheumatoid arthritis, unspecified Category: Medical Qualifiers: Rheumatoid arthritis location: multiple sites Rheumatoid factor presence: with rheumatoid factor Qualified Code(s): M05.79 - Rheumatoid arthritis with rheumatoid factor of multiple sites without organ or systems involvement Plan: This is a 62-year-old female with seropositive RA returns for follow-up. On hydroxychloroquine 200 mg Twice daily. Doing well overall. I do not see any active synovitis on exam. Symptoms today are more related to bilateral hand osteoarthritis. Continue hydroxychloroquine 20 mg Twice daily Follow-up in 6 months. 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 Patient had an eye exam Yung of 2023, hydroxychloroquine screening was not performed. Patient stated that her next eye exam would be around January of 2024. (3) Osteoarthritis of hands, bilateral: Code(s): M19.041 - Primary osteoarthritis, right hand; M19.042 - Primary osteoarthritis, left hand Category: Medical Qualifiers: Osteoarthritis type: primary Qualified Code(s): M19.041 - Primary osteoarthritis, right hand; M19.042 - Primary osteoarthritis, left hand Plan: Referred to OT. Can take Tylenol once a day as needed for hand pain Plan I spent 27 minutes reviewing patient's chart, evaluating patient, ordering diagnostic workup, counseling patient & her daughter and documenting in the chart Orders: Orders OT Evaluation and Treatment Today M19.041 - Primary osteoarthritis, right hand, M19.042 - Primary osteoarthritis, left hand Coding Level of Care Code Est Pt Level 4 (85129) Diagnoses Rheumatoid arthritis involving multiple sites with positive rheumatoid factor M05.79 Rheumatoid arthritis location: multiple sites Rheumatoid factor presence: with rheumatoid factor Long-term use of hydroxychloroquine Z79.899 Primary osteoarthritis of both hands M19.041; M19.042 Osteoarthritis type: primary
[2023-09-03 10:30] VITALS: BP 124/72; PULSE 63; O2SAT 95; BMI 29.5
== END 2023-09-03 10:52 | disposition home or self-care (01) ==
PROVIDERS: PCP Family Medicine; Visit Provider Student in an Organized Health Care Education/Training Program
DX: M05.79 Rheumatoid arthritis with rheumatoid factor of multiple sites without organ or systems involvement (principal); Z79.899 Other long term (current) drug therapy; M19.041 Primary osteoarthritis, right hand; M19.042 Primary osteoarthritis, left hand
CPT/HCPCS: 99214

== ENCOUNTER → 2023-09-03 10:20 | Outpatient (BNVA) | payer OTHER, SELFPAY | PROVIDERS: PCP Family Medicine; Visit Provider Student in an Organized Health Care Education/Training Program | DX: M05.79 Rheumatoid arthritis with rheumatoid factor of multiple sites without organ or systems involvement (principal); M19.041 Primary osteoarthritis, right hand; M19.042 Primary osteoarthritis, left hand; Z79.899 Other long term (current) drug therapy | CPT/HCPCS: 99212 ==

== ENCOUNTER 2023-10-28 10:23 | Outpatient (AMB) | payer OTHER, SELFPAY ==
--- NOTE | 2023-10-28 11:33 | MHC.PC.OV ---
Vital Signs 10/28/23 11:36 10/28/23 11:44 Height 5 ft 5 in Weight 176 lb BMI 29.3 BP 140/70 H 130/70 Blood Pressure Location Rt brachial Rt brachial Position Sitting Sitting Respiration 12 Pulse 63 Pulse Source Pulse Oximeter Temp 98.5 F Temp Source Tympanic Pulse Oximetry (%) 96 Oxygen Delivery Method Room Air Intake Visit Reasons: 3m f/u hypertension, diabetes, chronic conditions Intake Note: F/U for DM and HTN Allergies seafood Allergy (Unknown, Verified 10/28/23 11:34) rash, GI upset losartan Adverse Reaction (Severe, Verified 10/28/23 11:34) blurry vision, muscle pain. Medication List - Last Reconciled 10/28/23 by Clifford Cowan MD amitriptyline 50 mg PO BEDTIME 90 days amlodipine 10 mg PO DAILY 90 days baclofen 10 mg PO DAILY 90 days bisacodyl (Dulcolax (bisacodyl)) 10 mg DE DAILY PRN blood sugar diagnostic (FreeStyle Lite Strips) Test Blood sugar 2 times a day As directed, 90 days clotrimazole-betamethasone 1-0.05 % 1 appl topical BID 2 weeks diclofenac sodium 1% 2 grams topical QID 30 days gabapentin 600 mg PO TID 90 days glipizide ER 5 mg PO DAILY 30 days Grab bar Daily As directed, 999 days hydroxychloroquine 200 mg PO BID ketotifen fumarate 0.025%(0.035%) (Alaway) 1 drp ophthalmic (eye) Q12H PRN 30 days metformin 500 mg PO BID 90 days miscellaneous medical supply Diabetic shoes. Daily As directed, 999 days/lifetime. Disp #1 pair miscellaneous medical supply Custom Right AFOy, daily As directed. 999 days/lifetime. Disp #1 ofloxacin 0.3% 5 drps otic (ears) DAILY 7 days omeprazole 40 mg PO DAILY sennosides-docusate sodium 8.6-50 mg (Laxative Stool Softener With Senna) 1 tab-cap PO BID 1 month Shower Chair (Chair, shower) Daily As directed, 999 days simethicone (Gas Relief (simethicone)) 80 mg PO BID-QID PRN 30 days topiramate 25 mg PO DAILY valsartan 160 mg PO DAILY Tobacco use date assessed: 07/22/23 Dental Screening Dental Screen Date: 07/22/23 HPI 3m f/u hypertension, diabetes, chronic conditions HPI Details 63 y/o female presents to f/u hypertension, diabetes, chronic conditions. Blood pressure today 140/70, 63p. She is on valsartan 160mg, amlodipine 10mg daily. Last A1c 07/22/23 6.5%. A1c today 10/28/23 is 6.6%. Reports morning blood sugars in the 130s. HPI Comments History of Present Illness Details Documentation assistance for Clifford Cowan MD, was provided by Michael Kohli,? Electro Optical Engineer on 10/28/2023 at 11:55 AM EST. I, Dr. Cowan, have read, observed, and verified documentation. [facility] Medical History Acquired right foot drop Chronic abdominal pain Plasma cell disorder Diabetes mellitus GERD (gastroesophageal reflux disease) HTN (hypertension) Elevated rheumatoid factor Surgical History History of hand surgery History of back surgery No pertinent past surgical history Family History Father No problems noted. Mother CVD (cardiovascular disease) Diabetes Sister In good health Son In good health Daughter In good health Social History Housing: Apartment Are you a primary vehicle care specialist to a significant other at home: No Do you presently have visiting nurse or other home services: No Alcohol intake: never Patient Tobacco Use Status: Never used Tobacco e-Cigarette/Vaping Use: Never Used Second Hand Smoke Exposure: No service: No Current occupational status: unemployed and disabled Current occupation: right handed Current occupational exposures/hazards: No Cognitive needs: No Hearing needs: No Vision needs: Yes Questionnaire Thrive Questionnaire Date Thrive assessed: 08/24/20 ALEXA-7 AMB Questionnaire ALEXA-7 Date ALEXA - 7 assessed: 07/22/23 Source: Developed by Drs. Kang West, Rebecca Griffith, Efrain Allison and colleagues, with an educational lynne from [employer]. Review of Systems Const Denies chills, Denies fatigue, Denies fever(s), Denies headache(s) and Denies weakness ENT Denies dizziness and Denies headache(s) Card Denies dyspnea Resp Denies cough, Denies dyspnea, Denies wheezing and Denies other (shortness of breath) Musc Denies numbness and Denies tingling Neuro Denies dizziness, Denies headache(s), Denies numbness, Denies tingling and Denies weakness Psych Denies anxiety and Denies depression Endo Denies fatigue Aller/Immun Denies wheezing Physical exam (Primary Care) Vital Signs: Last Vital Signs Temp 98.5 F 10/28/23 11:36 Pulse 63 10/28/23 11:36 Resp 12 10/28/23 11:36 BP 130/70 10/28/23 11:44 Pulse Ox 96 10/28/23 11:36 Oxygen Delivery Method Room Air 10/28/23 11:36 BMI result Body Mass Index 29.3 Tobacco/Smoking Status: Tobacco use Status Tobacco use date assessed 07/22/23 10/28/23 11:39 Patient Tobacco Use Status Never used Tobacco 10/28/23 11:39 e-Cigarette/Vaping Use Never Used 10/28/23 11:39 Thrive Assessment: Date of Thrive Assessment Date Thrive assessed 08/24/20 10/28/23 11:39 Const General: well developed; No acute distress Nutritional Appearance: well nourished Orientation/consciousness: patient oriented x3 HENMT Head: Yes normocephalic and Yes atraumatic Eyes General: appearance normal, both eyes and all related structures Pupils: Equal, round and reactive pupils present EOM: EOMs intact bilaterally Resp Effort & Inspection: normal respiratory effort Neuro General: patient oriented x3 and No gait normal Cranial nerves: Yes Equal, round and reactive pupils present Gait exam (Neuro): Assisted gait required (Cane) Psych Affect: normal affect Assessment and Plan Assessment & Plan (1) Hypertension, essential: Comment: She should continue to monitor blood pressure daily Code(s): I10 - Essential (primary) hypertension Plan: Blood?pressure?is?controlled.??Goal?is?less?than?140/90 Taking?valsartan?and?amlodipine?as?prescribed-no?changes?made?today Continue?current?medication?regimen (2) Diabetes type 2, controlled: Code(s): E11.9 - Type 2 diabetes mellitus without complications Qualifiers: Diabetes mellitus complication status: without complication Diabetes mellitus web content executive insulin use: without prison use Qualified Code(s): E11.9 - Type 2 diabetes mellitus without complications Plan: A1c?6.6%.??Goal?is?less?than?7.0% Good?control Continue?diabetic?diet (3) Back pain: Code(s): M54.9 - Dorsalgia, unspecified Plan: Patient?has?a?right?mid?and?low?back?pain?which?appears?muscular?in?nature Will?give?her?a?new?script?for?diclofenac?gel Use?ice/heat Gentle?stretch If?not?improving?will?try?physical?therapy?or?consider?imaging. Medications: Refilled diclofenac sodium 1% 2 grams topical QID 30 days 100 grams 2RF Coding Level of Care Code Est Pt Level 3 (88450) Diagnoses Hypertension, essential I10 Controlled type 2 diabetes mellitus without complication, without long-term current use of insulin E11.9 Diabetes mellitus complication status: without complication Diabetes mellitus web content executive insulin use: without prison use Back pain M54.9
[2023-10-28 11:36] VITALS: BP 140/70; PULSE 63; RESP 12; TEMP 36.9; O2SAT 96; BMI 29.3
[2023-10-28 11:44] VITALS: BP 130/70
== END 2023-10-28 13:23 | disposition home or self-care (01) ==
PROVIDERS: PCP Family Medicine; Visit Provider Family Medicine
DX: I10 Essential (primary) hypertension (principal); E11.9 Type 2 diabetes mellitus without complications; M54.9 Dorsalgia, unspecified
CPT/HCPCS: 99213

== ENCOUNTER 2023-12-16 08:52 | Outpatient (AMB) | payer OTHER, SELFPAY ==
--- NOTE | 2023-12-16 08:58 | A.OFFPC_ITS ---
Vital Signs 12/16/23 09:06 Weight 174 lb 4 oz BP 143/71 H Blood Pressure Location Rt brachial Position Sitting Respiration 14 Pulse 63 Pulse Source Pulse Oximeter Temp 97.2 F Temp Source Temporal Artery Scan Pulse Oximetry (%) 97 Oxygen Delivery Method Room Air Intake Visit Reasons: Hypertension?and?knee?pain Intake Note: Hypertension?and?knee?pain Senior Project Controls Specialist Required: Yes Senior Project Controls Specialist Name: latrell ( son) Information Interpreted: non-clinical only Addiction Nurse: Present Accompanied by: Son Is last menstrual period known: No Post menopausal: Yes Patient : No Allergies seafood Allergy (Unknown, Verified 12/16/23 08:58) rash, GI upset losartan Adverse Reaction (Severe, Verified 12/16/23 08:58) blurry vision, muscle pain. Medication List - Last Reconciled 12/16/23 by Clifford Cowan MD amitriptyline 50 mg PO BEDTIME 90 days amlodipine 10 mg PO DAILY 90 days baclofen 10 mg PO DAILY 90 days bisacodyl (Dulcolax (bisacodyl)) 10 mg [place] DAILY PRN blood sugar diagnostic (FreeStyle Lite Strips) Test Blood sugar 2 times a day As directed, 90 days clotrimazole-betamethasone 1-0.05 % 1 appl topical BID 2 weeks diclofenac sodium 1% 2 grams topical QID 30 days gabapentin 600 mg PO TID 90 days glipizide ER 5 mg PO DAILY 30 days Grab bar Daily As directed, 999 days hydroxychloroquine 200 mg PO BID ketotifen fumarate 0.025%(0.035%) (Alaway) 1 drp ophthalmic (eye) Q12H PRN 30 days metformin 500 mg PO BID 90 days miscellaneous medical supply Diabetic shoes. Daily As directed, 999 days/lifetime. Disp #1 pair miscellaneous medical supply Custom Right AFOy, daily As directed. 999 days/lifetime. Disp #1 ofloxacin 0.3% 5 drps otic (ears) DAILY 7 days omeprazole 40 mg PO DAILY sennosides-docusate sodium 8.6-50 mg (Laxative Stool Softener With Senna) 1 tab- cap PO BID 1 month Shower Chair (Chair, shower) Daily As directed, 999 days simethicone (Gas Relief (simethicone)) 80 mg PO BID-QID PRN 30 days topiramate 25 mg PO DAILY valsartan 160 mg PO DAILY Tobacco use date assessed: 12/16/23 Fall risk assessment: No Falls in past year Last assessed Fall Risk: 12/16/23 Dental Screening Dental Screen Date: 12/16/23 Did you have a dental visit in the last 12 months?: No Did you have a dental problem in the last 6 months where you did not have access to dental care?: Yes Was dental information given to patient?: Patient has dentist HPI Hypertension?and?knee?pain HPI Details Patient?wa s?scheduled?for?an?annual?exam?but?had?her?annual?physical?in?March?so?is?not ?due?for?this?yet. She?wants?to?discuss?knee?pain?and?her?blood?pressure?is?high?today. Pain?in?bilateral?knees. Her?so n?also?notes?that?she?has?has?stumbled?and?nearly?fallen?recently. 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 osteoarthritis. She?is?on?hydroxychloroquine Recent Plasma injections in knees which helped a little. Has?not?been?taking?any?NSAIDs No?recent?physical?therapy Blood?pressure?is?high?today.??She?is?on?amlodipine?and?valsartan. [facility] Medical History Acquired right foot drop Chronic abdominal pain Plasma cell disorder Diabetes mellitus GERD (gastroesophageal reflux disease) HTN (hypertension) Elevated rheumatoid factor Surgical History History of hand surgery History of back surgery No pertinent past surgical history Family History Father No problems noted. Mother CVD (cardiovascular disease) Diabetes Sister In good health Son In good health Daughter In good health Social History Housing: Apartment Are you a primary residential care facility manager to a significant other at home: No Do you presently have visiting nurse or other home services: No Alcohol intake: never Patient Tobacco Use Status: Never used Tobacco e-Cigarette/Vaping Use: Never Used Second Hand Smoke Exposure: No Patient : No service: No Current occupational status: unemployed and disabled Current occupation: right handed Current occupational exposures/hazards: No Cognitive needs: No Hearing needs: No Vision needs: Yes Questionnaire PHQ-9 Over the last 2 weeks, how often have you been bothered by any of the following problems? 1. Little interest or pleasure in doing things: several days 2. Feeling down, depressed, or hopeless: several days 3. Trouble falling or staying asleep, or sleeping too much: several days 4. Feeling tired or having little energy: more than half the days 5. Poor appetite or overeating: not at all 6. Feeling bad about yourself - or that you are a failure or have let yourself or your family down: not at all 7. Trouble concentrating on things, such as reading the newspaper or watching television: several days 8. Moving or speaking so slowly that other people could have noticed. Or the opposite - being so fidgety or restless that you have been moving around a lot more than usual: not at all 9. Thoughts that you would be better off or of hurting yourself in some way: not at all Total score: 6 Depression Screening Interpretation: Positive Depression Screening Done: Yes 04257 - PHQ-9 Billing: Yes Source: Developed by Drs. Kang West, Rebecca Griffith, Efrain Allison and colleagues, with an educational lynne from [employer]. Thrive Questionnaire Date Thrive assessed: 08/24/20 I am a: Parent/Caregiver What is your living situation today?: I have a steady place to live Within the past 12 months, did the food you bought not last and you didn't have the money to get more?: Sometimes True Within the past 12 months, did you worry whether your food would run out before you got money to buy more?: Often true Do you have trouble paying for medicines?: I choose not to answer this question Do you have trouble getting transportation to medical appointments?: I choose not to answer this question Do you have trouble paying your heating and electricity bill?: I choose not to answer this question Do you have trouble taking care of your child, family member or friend?: I choose not to answer this question Do you have trouble with day-to-day activities such as bathing, preparing meals, shopping, managing finances, etc.?: I choose not to answer this question Are you currently unemployed and looking for a job?: I choose not to answer this question Are you interested in more education?: I choose not to answer this question Please select the resources that you would like help with: None Currently or been in a relationship where the following occur: I choose not to answer THRIVE Score: 2 AUDIT C Alcohol Use Questionnaire (AUDIT-C) 1. How often do you have a drink containing alcohol?: Never 3. How often do you have six or more drinks on one occasion?: Never Total Score: 0 ALEXA-7 AMB Questionnaire ALEXA-7 Date ALEXA - 7 assessed: 12/16/23 Feeling nervous, anxious, or on edge: 1 = Several days Not being able to stop or control worryin = Several days Worrying too much about different things: 1 = Several days Trouble relaxin = Several days Being so restless that it is hard to sit still: 1 = Several days Becoming easily annoyed or irritable: 1 = Several days Feeling afraid as if something awful might happen: 0 = Not at all Total ALEXA-7 score (0-4 normal; 5-9 mild; 10-14 moderate; 15-21 severe): 6 Source: Developed by Drs. Kang West, Rebecca Griffith, Efrain Allison and colleagues, with an educational lynne from [employer]. ALEXA-7 Assessment Billing ALEXA-7 Assessment Tool: ALEXA-7 Assessment 83769 Physical exam (Primary Care) Vital Signs: Last Vital Signs Temp 97.2 F 12/16/23 09:06 Pulse 63 12/16/23 09:06 Resp 14 12/16/23 09:06 BP 143/71 H 12/16/23 09:06 Pulse Ox 97 12/16/23 09:06 Oxygen Delivery Method Room Air 12/16/23 09:06 Tobacco/Smoking Status: Tobacco use Status Tobacco use date assessed 12/16/23 12/16/23 09:07 Patient Tobacco Use Status Never used Tobacco 12/16/23 09:00 e-Cigarette/Vaping Use Never Used 12/16/23 09:00 PHQ-9: PHQ-9 Score PHQ-9: Total score 6 12/16/23 09:08 Depression Screening Interpretation: Positive Thrive Assessment: Date of Thrive Assessment Date Thrive assessed 08/24/20 12/16/23 09:00 Currently or been in a relationship where the following occur: I choose not to answer Coding Level of Care Code Est Pt Level 4 (06605) Diagnoses Lower extremity weakness R29.898 Osteoarthritis of knees, bilateral M17.0 Hypertension, essential I10 Additional Codes ALEXA-7 Assessment Billing - ALEXA-7 Assessment Tool: ALEXA-7 Assessment 30176 ([id number]) Assessment & Plan Assessment & Plan (1) Lower extremity weakness: Code(s): R29.898 - Other symptoms and signs involving the musculoskeletal system Category: Medical Plan: Bilateral?lower?extremity?weakness?likely?secondary?to?knee?pain Will?treat?underlying?cause?with?Celebrex?which?should?not?irritate?her?stomach Continue?hydroxychloroquine?and?gabapentin?for?knee?pain Start?physical?therapy Will?follow-up?at?next?visit?already?scheduled?in?January (2) Osteoarthritis of knees, bilateral: Code(s): M17.0 - Bilateral primary osteoarthritis of knee Category: Medical Plan: As?above (3) Hypertension, essential: Comment: She should continue to monitor blood pressure daily Code(s): I10 - Essential (primary) hypertension Category: Medical Plan: Blood?pressure?is?a?little?too?high. Will?have?her?take?1.5?tablets?of?her?valsartan?160?mg; 240?mg?daily. Continue?amlodipine?as?prescribed Recheck?labs?prior?to?next?visit Orders: Orders PT Evaluation and Treatment Today M17.0 - Bilateral primary osteoarthritis of knee, R29.898 - Other symptoms and signs involving the musculoskeletal system Comprehensive [place]. Panel Fast Today I10 - Essential (primary) hypertension, Z00.00 - Encounter for general adult medical examination without abnormal findings Medications: New celecoxib 100 mg PO BID 90 days 180 caps 2RF famotidine 20 mg PO BEDTIME 30 days 30 tabs 2RF Changed From valsartan 160 mg PO DAILY 90 tabs 3RF I10 - Essential (primary) hypertension To valsartan 240 mg (1.5 x 160 mg) PO DAILY 90 days 135 tabs 3RF I10 - Essential (primary) hypertension
[2023-12-16 09:06] VITALS: BP 143/71; PULSE 63; RESP 14; TEMP 36.2; O2SAT 97
== END 2023-12-16 09:31 | disposition home or self-care (01) ==
PROVIDERS: PCP Family Medicine; Visit Provider Family Medicine
DX: R29.898 Other symptoms and signs involving the musculoskeletal system (principal); M17.0 Bilateral primary osteoarthritis of knee; I10 Essential (primary) hypertension

== ENCOUNTER → 2023-12-16 08:52 | Outpatient (BNVA) | payer OTHER, SELFPAY | PROVIDERS: PCP Family Medicine; Visit Provider Family Medicine | DX: R29.898 Other symptoms and signs involving the musculoskeletal system (principal); M17.0 Bilateral primary osteoarthritis of knee; I10 Essential (primary) hypertension; M54.50 Low back pain, unspecified | CPT/HCPCS: 96127; 99212 ==

== ENCOUNTER 2024-02-04 11:31 | Outpatient (AMB) | payer OTHER, SELFPAY ==
--- NOTE | 2024-02-04 11:49 | A.OFFPC_ITS ---
Vital Signs 02/04/24 11:51 Height 5 ft 5 in Weight 177 lb 8 oz BMI 29.5 BP 130/78 Blood Pressure Location Rt brachial Position Sitting Respiration 14 Pulse 78 Pulse Source Pulse Oximeter Pulse Oximetry (%) 96 Oxygen Delivery Method Room Air Intake Visit Reasons: f/u htn, diabetes Intake Note: f/u HTN DM Allergies seafood Allergy (Unknown, Verified 02/04/24 11:49) rash, GI upset losartan Adverse Reaction (Severe, Verified 02/04/24 11:49) blurry vision, muscle pain. Tobacco use date assessed: 12/16/23 Dental Screening Dental Screen Date: 12/16/23 HPI f/u htn, diabetes HPI Details 63 y/o female presents to f/u diabetes, hypertension. Blood pressure today 130/78, 78p. She is on valsartan 240mg, amlodipine 10mg daily. Reports ongoing worsening GERD. Notes she sees a GI [facility]. A1c today 7.0%. Reports morning blood sugar in the 130-150s. Denies any low blood sugars during the day. She is prescribed glipizide 5mg, metformin 500mg b.i.d. She notes she has stopped taking glipizide. HPI Comments History of Present Illness Details Documentation assistance for Clifford Cowan MD, was provided by Michael Kohli,? [employer] on 02/04/2024 at 12:16 PM EST. I, Dr. Cowan, have read, observed, and verified documentation. ?? [facility] Medical History Acquired right foot drop Chronic abdominal pain Plasma cell disorder Diabetes mellitus GERD (gastroesophageal reflux disease) HTN (hypertension) Elevated rheumatoid factor Surgical History History of hand surgery History of back surgery No pertinent past surgical history Family History Father No problems noted. Mother CVD (cardiovascular disease) Diabetes Sister In good health Son In good health Daughter In good health Social History Housing: Apartment Are you a primary manager respiratory care to a significant other at home: No Do you presently have visiting nurse or other home services: No Alcohol intake: never Patient Tobacco Use Status: Never used Tobacco e-Cigarette/Vaping Use: Never Used Second Hand Smoke Exposure: No service: No Current occupational status: unemployed and disabled Current occupation: right handed Current occupational exposures/hazards: No Cognitive needs: No Hearing needs: No Vision needs: Yes Questionnaire PHQ-9 Over the last 2 weeks, how often have you been bothered by any of the following problems? 4. Feeling tired or having little energy: nearly every day 5. Poor appetite or overeating: several days 6. Feeling bad about yourself - or that you are a failure or have let yourself or your family down: not at all 7. Trouble concentrating on things, such as reading the newspaper or watching television: several days 8. Moving or speaking so slowly that other people could have noticed. Or the opposite - being so fidgety or restless that you have been moving around a lot more than usual: several days 9. Thoughts that you would be better off or of hurting yourself in some way: not at all Source: Developed by Drs. Kang West, Rebecca Griffith, Efrain Allison and colleagues, with an educational lynne from [employer]. Thrive Questionnaire Date Thrive assessed: 12/16/23 I am a: Parent/Caregiver What is your living situation today?: I have a steady place to live Within the past 12 months, did the food you bought not last and you didn't have the money to get more?: Sometimes True Within the past 12 months, did you worry whether your food would run out before you got money to buy more?: Often true Do you have trouble paying for medicines?: I choose not to answer this question Do you have trouble getting transportation to medical appointments?: I choose not to answer this question Do you have trouble paying your heating and electricity bill?: I choose not to answer this question Do you have trouble taking care of your child, family member or friend?: I choose not to answer this question Do you have trouble with day-to-day activities such as bathing, preparing meals, shopping, managing finances, etc.?: I choose not to answer this question Are you currently unemployed and looking for a job?: I choose not to answer this question Are you interested in more education?: I choose not to answer this question Please select the resources that you would like help with: None Currently or been in a relationship where the following occur: I choose not to answer THRIVE Score: 2 ALEXA-7 AMB Questionnaire ALEXA-7 Date ALEXA - 7 assessed: 12/16/23 Source: Developed by Drs. Kang West, Rebecca Griffith, Efrain Allison and colleagues, with an educational lynne from [employer]. Review of Systems Const Denies chills, Denies fatigue, Denies fever(s), Denies headache(s) and Denies weakness ENT Denies dizziness and Denies headache(s) Card Denies dyspnea Resp Denies cough, Denies dyspnea, Denies wheezing and Denies other (shortness of breath) Musc Denies numbness and Denies tingling Neuro Denies dizziness, Denies headache(s), Denies numbness, Denies tingling and Denies weakness Psych Denies anxiety and Denies depression Endo Denies fatigue Aller/Immun Denies wheezing Physical exam (Primary Care) Vital Signs: Last Vital Signs Pulse 78 02/04/24 11:51 Resp 14 02/04/24 11:51 BP 130/78 02/04/24 11:51 Pulse Ox 96 02/04/24 11:51 Oxygen Delivery Method Room Air 02/04/24 11:51 BMI result Body Mass Index 29.5 Tobacco/Smoking Status: Tobacco use Status Tobacco use date assessed 12/16/23 02/04/24 11:53 Patient Tobacco Use Status Never used Tobacco 02/04/24 11:53 e-Cigarette/Vaping Use Never Used 02/04/24 11:53 Thrive Assessment: Date of Thrive Assessment Date Thrive assessed 12/16/23 02/04/24 11:53 Currently or been in a relationship where the following occur: I choose not to answer Const General: well developed; No acute distress Nutritional Appearance: well nourished Orientation/consciousness: patient oriented x3 HENMT Head: Yes normocephalic and Yes atraumatic Eyes General: appearance normal, both eyes and all related structures Pupils: Equal, round and reactive pupils present EOM: EOMs intact bilaterally Neck Other: Discomfort in neck and shoulders Resp Effort & Inspection: normal respiratory effort Neuro General: patient oriented x3 Cranial nerves: Yes CN's II-XII intact bilaterally and Yes Equal, round and reactive pupils present Psych Affect: normal affect Coding Level of Care Code Est Pt Level 4 (78995) Diagnoses Controlled type 2 diabetes mellitus without complication, without long-term current use of insulin E11.9 Diabetes mellitus complication status: without complication 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 cause?her?blood?sugar?to?decrease?quickly?and?she?did?not?feel?well?when?she?tri ed?it. Will?decrease?glipizide?from?5?mg ?daily?to?2.5?mg?daily?and?continue?metformin?as?prescribed. Will?follow-up?few?months (2) Hypertension, essential: Comment: She should continue to monitor blood pressure daily Code(s): I10 - Essential (primary) hypertension Category: Medical Plan: Blood?pressure?is?improved?on?new?regimen.??Goal?is?less?than?140/90 Continue?to?work?at?weight?control?and?diet?low?in?salt/sodium Continue?current?medication?with (3) GERD (gastroesophageal reflux disease): Code(s): K21.9 - Gastro-esophageal reflux disease without esophagitis Category: Medical Plan: Continue?omeprazole?and?famotidine Follow-up?with?your?sr. operations manager?as?recommended (4) Back pain: Code(s): M54.9 - Dorsalgia, unspecified Category: Medical Plan: Upper?back,?shoulders?and?posterior?neck?pain?and?tension Will?refer?to?physical?therapy (5) Bilateral knee pain: Code(s): M25.561 - Pain in right knee; M25.562 - Pain in left knee Category: Medical Plan: Patient?tried?physical?therapy?for?her?knees?but?she?did?not?tolerate?this She?continues?ice?and?heat?and?celecoxib. Follow-up?with?rheumatology (6) Weakness: Code(s): R53.1 - Weakness Category: Medical Plan: He?has?some?weakness?of?lower?extremities?and?al so?neck?muscles?due?to?pain?and?deconditioning Did?not?tolerate?is?therapy?for?lower?extremities.??Will?try?therapy?for?neck?sh oulders?and?or?headaches (7) Neck pain: Code(s): M54.2 - Cervicalgia Category: Medical Plan: As?above (8) Shoulder pain: Code(s): M25.519 - Pain in unspecified shoulder Category: Medical Plan: As above (9) Hydrocephalus: Code(s): G91.9 - Hydrocephalus, unspecified Category: Medical Plan: History?of?hydrocephalus. Patient?was?concerned?about any worsening Patient?was?referred?to?neurosurgery?but?she?declined?a?lumbar?puncture. They?felt?that?this?was?reasonable?as?they?did?not?feel?that her?hydrocephalus?was?clinically?significant?regarding?her?symptoms. Currently?her?neuro?exam?is?unchanged. She?will?me?kno w?if?she?has?any?changes?or?his?any?changes?in?exam?and?would?reimage?or?conside r?referral?again Orders: Orders PT Evaluation and Treatment Today M54.2 - Cervicalgia, M54.9 - Dorsalgia, unspecified, R51.9 - Headache, unspecified Medications: Changed From glipizide ER 5 mg PO DAILY 30 days 30 tabs 2RF To glipizide ER 2.5 mg PO DAILY 30 days 30 tabs 2RF
[2024-02-04 11:51] VITALS: BP 130/78; PULSE 78; RESP 14; O2SAT 96; BMI 29.5
== END 2024-02-04 12:26 | disposition home or self-care (01) ==
PROVIDERS: PCP Family Medicine; Visit Provider Family Medicine
DX: E11.9 Type 2 diabetes mellitus without complications (principal); G91.9 Hydrocephalus, unspecified; I10 Essential (primary) hypertension; K21.9 Gastro-esophageal reflux disease without esophagitis; M54.9 Dorsalgia, unspecified; M25.561 Pain in right knee; M25.562 Pain in left knee; R53.1 Weakness; M54.2 Cervicalgia

== ENCOUNTER → 2024-02-04 11:31 | Outpatient (BNVA) | payer OTHER, SELFPAY | PROVIDERS: PCP Family Medicine; Visit Provider Family Medicine | DX: E11.9 Type 2 diabetes mellitus without complications (principal); I10 Essential (primary) hypertension; K21.9 Gastro-esophageal reflux disease without esophagitis; M54.9 Dorsalgia, unspecified; M25.561 Pain in right knee; M25.562 Pain in left knee; R53.1 Weakness; M54.2 Cervicalgia; G91.9 Hydrocephalus, unspecified | CPT/HCPCS: 83036; 99212 ==

== ENCOUNTER 2024-06-08 15:52 | Outpatient (AMB) | payer OTHER, SELFPAY ==
--- NOTE | 2024-06-08 15:56 | MHC.PC.OV ---
Vital Signs 06/08/24 16:09 06/08/24 16:14 Height 5 ft 5 in Weight 169 lb 8 oz BMI 28.2 BP 150/80 H 140/70 H Blood Pressure Location Lt brachial Lt brachial Position Sitting Sitting Respiration 16 Pulse 70 Pulse Source Pulse Oximeter Temp 99.6 F Temp Source Oral Pulse Oximetry (%) 97 Oxygen Delivery Method Room Air Intake Visit Reasons: CPE with f/u labs and health maint Intake Note: patient is scheduled for cpe Contact Center Rep Required: Yes Contact Center Rep Language: Frisian Contact Center Rep Name: pt daughter will translate Information Interpreted: clinical only Accompanied by: Daughter Is last menstrual period known: No Post menopausal: Yes Patient : No Allergies seafood Allergy (Unknown, Verified 06/08/24 15:59) rash, GI upset losartan Adverse Reaction (Severe, Verified 06/08/24 15:59) blurry vision, muscle pain. Medication List - Last Reconciled 06/08/24 by Clifford Cowan MD amitriptyline 50 mg PO BEDTIME 90 days amlodipine 10 mg PO DAILY 90 days baclofen 10 mg PO DAILY 90 days bisacodyl (Dulcolax (bisacodyl)) 10 mg VT DAILY PRN blood sugar diagnostic (FreeStyle Lite Strips) Test Blood sugar 2 times a day As directed, 90 days celecoxib 100 mg PO BID 90 days clotrimazole-betamethasone 1-0.05 % 1 appl topical BID 2 weeks diclofenac sodium 1% 2 grams topical QID 30 days famotidine 20 mg PO BEDTIME 30 days gabapentin 600 mg PO TID 90 days glipizide ER 2.5 mg PO DAILY 30 days Grab bar Daily As directed, 999 days hydroxychloroquine 200 mg PO BID ketotifen fumarate 0.025%(0.035%) ([place]) 1 drp ophthalmic (eye) Q12H PRN 30 days metformin 500 mg PO BID 90 days miscellaneous medical supply Diabetic shoes. Daily As directed, 999 days/lifetime. Disp #1 pair miscellaneous medical supply Custom Right AFOy, daily As directed. 999 days/lifetime. Disp #1 omeprazole 40 mg PO DAILY sennosides-docusate sodium 8.6-50 mg (Laxative Stool Softener With Senna) 1 tab-cap PO BID 1 month Shower Chair (Chair, shower) Daily As directed, 999 days simethicone (Gas Relief (simethicone)) 80 mg PO BID-QID PRN 30 days topiramate 25 mg PO DAILY valsartan 240 mg (1.5 x 160 mg) PO DAILY 90 days Tobacco use date assessed: 12/16/23 Fall risk assessment: 2 + Falls in past year Last assessed Fall Risk: 06/08/24 Dental Screening Dental Screen Date: 06/08/24 Did you have a dental visit in the last 12 months?: Yes Did you have a dental problem in the last 6 months where you did not have access to dental care?: No Was dental information given to patient?: No HPI CPE with f/u labs and health maint HPI Details 63 y/o female presents for an extended exam with f/u labs and health maintenance. No recent labs to review. Recent A1c 02/04/24 7.0%. A1c today 8.6%. Blood pressure today 140/70, 70p. She is on valsartan 240mg, amlodipine 10mg daily. Has complaints of knee pain. Has complaints of back pain. FOR[facility]LY [facility], [facility] Medical History Acquired right foot drop Chronic abdominal pain Plasma cell disorder Diabetes mellitus GERD (gastroesophageal reflux disease) HTN (hypertension) Elevated rheumatoid factor Surgical History History of hand surgery History of back surgery No pertinent past surgical history Family History Father No problems noted. Mother CVD (cardiovascular disease) Diabetes Sister In good health Son In good health Daughter In good health Social History Housing: Apartment Are you a primary healthcare economics manager to a significant other at home: No Do you presently have visiting nurse or other home services: No Alcohol intake: never Patient Tobacco Use Status: Never used Tobacco e-Cigarette/Vaping Use: Never Used Second Hand Smoke Exposure: No service: No Current occupational status: unemployed and disabled Current occupation: right handed Current occupational exposures/hazards: No Cognitive needs: No Hearing needs: No Vision needs: Yes Questionnaire PHQ-9 Over the last 2 weeks, how often have you been bothered by any of the following problems? 1. Little interest or pleasure in doing things: more than half the days 2. Feeling down, depressed, or hopeless: nearly every day 3. Trouble falling or staying asleep, or sleeping too much: several days 4. Feeling tired or having little energy: nearly every day 5. Poor appetite or overeating: more than half the days 6. Feeling bad about yourself - or that you are a failure or have let yourself or your family down: not at all 7. Trouble concentrating on things, such as reading the newspaper or watching television: several days 8. Moving or speaking so slowly that other people could have noticed. Or the opposite - being so fidgety or restless that you have been moving around a lot more than usual: more than half the days 9. Thoughts that you would be better off or of hurting yourself in some way: not at all Total score: 14 Depression Screening Interpretation: Negative Depression Screening Done: Yes 71968 - PHQ-9 Billing: Yes Source: Developed by Drs. Kang West, Rebecca Griffith, Efrain Allison and colleagues, with an educational lynne from [employer]. Thrive Questionnaire Date Thrive assessed: 06/08/24 I am a: Parent/Caregiver What is your living situation today?: I have a place to live, but I am worried about losing it in the future Within the past 12 months, did the food you bought not last and you didn't have the money to get more?: I choose not to answer this question Within the past 12 months, did you worry whether your food would run out before you got money to buy more?: Sometimes True Do you have trouble paying for medicines?: I choose not to answer this question Do you have trouble getting transportation to medical appointments?: Yes Do you have trouble paying your heating and electricity bill?: Yes Do you have trouble taking care of your child, family member or friend?: I choose not to answer this question Do you have trouble with day-to-day activities such as bathing, preparing meals, shopping, managing finances, etc.?: Yes Are you currently unemployed and looking for a job?: No Are you interested in more education?: No Please select the resources that you would like help with: Housing/Correction and Utilities Currently or been in a relationship where the following occur: I choose not to answer THRIVE Score: 4 AUDIT C Alcohol Use Questionnaire (AUDIT-C) 1. How often do you have a drink containing alcohol?: Never Total Score: 0 Score Reviewed/Action Taken: Yes ALEXA-7 AMB Questionnaire ALEXA-7 Date ALEXA - 7 assessed: 06/08/24 Feeling nervous, anxious, or on edge: 2 = More than half the days Not being able to stop or control worryin = More than half the days Worrying too much about different things: 2 = More than half the days Trouble relaxin = More than half the days Being so restless that it is hard to sit still: 1 = Several days Becoming easily annoyed or irritable: 1 = Several days Feeling afraid as if something awful might happen: 1 = Several days Total ALEXA-7 score (0-4 normal; 5-9 mild; 10-14 moderate; 15-21 severe): 11 Source: Developed by Drs. Kang West, Rebecca Griffith, Efrain Allison and colleagues, with an educational lynne from [employer]. ALEXA-7 Assessment Billing ALEXA-7 Assessment Tool: ALEXA-7 Assessment 07041 Review of Systems Const Denies chills, Denies fatigue, Denies fever(s), Denies headache(s) and Denies weakness Eyes Denies change in vision ENT Denies dizziness, Denies headache(s), Denies hearing loss, Denies nasal congestion, Denies sinus pain, Denies sinus pressure and Denies sore throat Card Denies chest pain, Denies lightheadedness, Denies dyspnea and Denies other (palpitations) Resp Denies cough, Denies dyspnea and Denies wheezing GI Denies abdominal pain, Denies melena, Denies hematochezia, Denies change in bowel habits, Denies dyspepsia and Denies nausea Denies hematuria and Denies dysuria Musc Denies abnormal gait, Reports back pain, Denies numbness and Denies tingling Skin/Breast Denies rash, Denies unusual bruising and Denies wounds Neuro Denies abnormal gait, Denies dizziness, Denies headache(s), Denies memory loss, Denies numbness, Denies Sensory deficit (Neuro), Denies tingling and Denies weakness Psych Denies anxiety, Denies depression and Denies memory loss Endo Denies cold intolerance, Denies fatigue, Denies heat intolerance, Denies polydipsia and Denies polyuria Sal/Lymph Denies easy bleeding and Denies easy bruising Aller/Immun Denies wheezing Physical exam (Primary Care) Vital Signs: Last Vital Signs Temp 99.6 F 06/08/24 16:09 Pulse 70 06/08/24 16:09 Resp 16 06/08/24 16:09 BP 140/70 H 06/08/24 16:14 Pulse Ox 97 06/08/24 16:09 Oxygen Delivery Method Room Air 06/08/24 16:09 BMI result Body Mass Index 28.2 Tobacco/Smoking Status: Tobacco use Status Tobacco use date assessed 12/16/23 06/08/24 15:56 Patient Tobacco Use Status Never used Tobacco 06/08/24 15:56 e-Cigarette/Vaping Use Never Used 06/08/24 15:56 PHQ-9: PHQ-9 Score PHQ-9: Total score 14 06/08/24 16:22 Depression Screening Interpretation: Negative Thrive Assessment: Date of Thrive Assessment Date Thrive assessed 06/08/24 06/08/24 16:14 Currently or been in a relationship where the following occur: I choose not to answer Const General: no acute distress, well developed, alert and awake Nutritional Appearance: well nourished Orientation/consciousness: patient oriented x3 HENMT Head: Yes normocephalic and Yes atraumatic Ears: hearing grossly normal bilaterally and TM's normal bilaterally General nose exam: Normal external nose present and Normal nares present Mouth: Normal oral and palatal mucosa present and moist mucous membranes Teeth and gingiva: dentition normal Throat: Yes posterior oropharynx normal Eyes General: appearance normal, both eyes and all related structures Pupils: Equal, round and reactive pupils present and Pupil accommodation reflex normal EOM: EOMs intact bilaterally Neck Neck: Yes normal visual inspection, Yes no lymphadenopathy and Yes trachea midline Thyroid: Thyroid normal Carotids: no bruits Lymphatic: no lymphadenopathy noted Chest Chest palpation & inspection: normal inspection of the chest Resp Effort & Inspection: normal respiratory effort Auscultation: clear to auscultation bilaterally Cardio Rate: regular rate Rhythm: regular rhythm Heart sounds: S1 normal heart sound present, S2 normal heart sound present, no gallops, no murmurs and no rubs Bruits: no abdominal aortic bruits and no carotid bruits GI Palpation (GI): No Abdominal aortic bruit present, Soft to palpation, nontender, No hepatosplenomegaly present and No Rebound tenderness present Auscultation: normal bowel sounds General: Yes no CVA tenderness Back/Spine/Pelvis Back: no CVA tenderness Cervical Spine: cervical ROM normal and No Cervical spine tenderness Thoracic/Lumbar Spine: thoraco-lumbar ROM normal, No pain with thoraco-lumbar ROM, No thoracic spinal tenderness and No lumbar spinal tenderness Skin Lesions: no lesions Rashes: no rashes Trauma: no lacerations or abrasions Wounds: no wounds Nails: normal Neuro General: patient oriented x3 Cranial nerves: Yes Equal, round and reactive pupils present Cognition (Neuro): normal cognition Gait exam (Neuro): Normal gait present Motor exam (neuro): 5/5 motor strength present throughout Sensory Exam: No Sensory deficit (Neuro) Deep tendon reflexes (DTR's): Right patellar reflex intensity grade: 2+ and Left patellar reflex intensity grade: 2+ Extrem General: Yes normal to inspection and No edema Psych Appearance: grossly normal Affect: normal affect Attitude: cooperative Thought process: Normal thought process present Results AMB Hemoglobin A1c AMB Hemoglobin A1c 8.6 % Last Edit by ISIDRO Napoles on 06/08/24 16:32 Results Reviewed Results Reviewed: Laboratory Last Values Hgb A1c (Clinic) 8.6 % (4.0-6.0) H 06/08/24 16:30 Coding Level of Care Code Est Pt Level 4 (38527) Diagnoses Hypertension, essential I10 Diabetes mellitus E11.9 Breast cancer screening by mammogram Z12.31 Back pain M54.9 Knee pain M25.569 Slow transit constipation K59.01 Constipation type: slow transit constipation Screening for cervical cancer Z12.4 Screening for colon cancer Z12.11 Adult general medical exam Z00.00 Additional Codes ALEXA-7 Assessment Billing - ALEXA-7 Assessment Tool: ALEXA-7 Assessment 11043 ([id number]) PHQ-9 - 19670 - PHQ-9 Billing: Yes ([id number]) Assessment & Plan Assessment & Plan (1) Hypertension, essential: Code(s): I10 - Essential (primary) hypertension Category: Medical Plan: Blood?pressure?is?too?high.??Goal?is?less?than?140/90 Continue?amlodipine?and?valsartan?as?prescribed Adding?hydrochlorothiazide?once?daily?in?the?morning (2) Diabetes mellitus: Code(s): E11.9 - Type 2 diabetes mellitus without complications Category: Medical Plan: A1c?8.6%.??Goal?is?less?than?7.0%.??Poor?control Increase?glipizide?from?2.5?mg?daily?to 5?mg?q.a.m. Increase?metformin?from?500?mg?b.i.d.?to?500?mg?in?the?morning?and?750?mg?in?the?evening (3) Breast cancer screening by mammogram: Code(s): Z12.31 - Encounter for screening mammogram for malignant neoplasm of breast Category: Medical Plan: Order?mammogram (4) Back pain: Code(s): M54.9 - Dorsalgia, unspecified Category: Medical Plan: She?will?follow-up?on?this?at?upcoming?visit.??Will?schedule. (5) Knee pain: Code(s): M25.569 - Pain in unspecified knee Category: Medical Plan: Bilateral?knee?pain,?left Worse?than?right She?has?significant?osteoarthritis Resume?celecoxib Follow-up?with?pain?management Requests?referral?to?Ortho-referred (6) Constipation: Code(s): K59.00 - Constipation, unspecified Category: Medical Qualifiers: Constipation type: slow transit constipation Qualified Code(s): K59.01 - Slow transit constipation Plan: Hydrate?well Will?give?her?a?short?script?of?MiraLax (7) Screening for cervical cancer: Code(s): Z12.4 - Encounter for screening for malignant neoplasm of cervix Category: Medical Plan: Referred?to?general merchandise salesperson (8) Screening for colon cancer: Code(s): Z12.11 - Encounter for screening for malignant neoplasm of colon Category: Medical Plan: Overdue?for?colonoscopy Referred?to?Gastroenterology (9) Adult general medical exam: Code(s): Z00.00 - Encounter for general adult medical examination without abnormal findings Category: Medical Plan: 63-year-old?female?presents?for?an?extended?exam Stable Orders: Orders MM tomosynthesis screening BI Today Z12.31 - Encounter for screening mammogram for malignant neoplasm of breast XR DEXA axial skeleton Today M81.0 - Age-related osteoporosis without current pathological fracture AMB Hemoglobin A1c Today E11.9 - Type 2 diabetes mellitus without complications Referrals MAC ARTIST Referral Z12.4 - Encounter for screening for malignant neoplasm of cervix Orthopedics Referral M25.561 - Pain in right knee, M25.562 - Pain in left knee Gastroenterology Referral Z12.11 - Encounter for screening for malignant neoplasm of colon Medications: New hydrochlorothiazide 25 mg PO QAM 90 days 90 tabs 2RF polyethylene glycol 3350 (Miralax) 17 grams PO DAILY 14 days 14 ea 0RF blood-glucose meter (FreeStyle Lite Meter kit) DX: E11.9, test blood sugar twice a day, duration 999 days 1 ea 0RF E11.9 - Type 2 diabetes mellitus without complications lancets (FreeStyle Lancets) As directed 200 ea 4RF DX: E11.9, test blood sugar 2 times a day, 90 day E11.9 - Type 2 diabetes mellitus without complications cetirizine (Allergy Relief (cetirizine)) 10 mg PO DAILY 90 days PRN 90 tabs 3RF allergy symptoms blood pressure monitor Automatic, Digital. Dx: I10. Daily As directed, 999 days/lifetime 1 ea 0RF I10 - Essential (primary) hypertension Changed From glipizide ER 2.5 mg PO DAILY 30 days 30 tabs 2RF To glipizide ER 5 mg PO DAILY 30 days 30 tabs 2RF From metformin 500 mg PO BID 90 days 180 tabs 0RF E11.9 - Type 2 diabetes mellitus without complications To metformin 1 tab (500mg) AM and 1.5 tabs (750mg) PM orally 2 times a day; 90 days 225 tabs 3RF E11.9 - Type 2 diabetes mellitus without complications Refilled blood sugar diagnostic (FreeStyle Lite Strips) Test Blood sugar 2 times a day As directed, 90 days PRN 200 ea 3RF diabetes mellitus E11.9 - Type 2 diabetes mellitus without complications celecoxib 100 mg PO BID 90 days 180 caps 2RF
[2024-06-08 16:09] VITALS: BP 150/80; PULSE 70; RESP 16; TEMP 37.6; O2SAT 97; BMI 28.2
[2024-06-08 16:14] VITALS: BP 140/70
== END 2024-06-08 16:58 | disposition home or self-care (01) ==
LOC: HO.HMCFM 15:53
PROVIDERS: PCP Family Medicine; Visit Provider Family Medicine
DX: E11.9 Type 2 diabetes mellitus without complications (principal)

== ENCOUNTER → 2024-06-08 15:52 | Outpatient (BNVA) | payer OTHER, SELFPAY | PROVIDERS: PCP Family Medicine; Visit Provider Family Medicine | DX: Z00.00 Encounter for general adult medical examination without abnormal findings (principal); I10 Essential (primary) hypertension; E11.9 Type 2 diabetes mellitus without complications; M54.9 Dorsalgia, unspecified; M25.561 Pain in right knee; M25.562 Pain in left knee; K59.01 Slow transit constipation; Z79.84 Long term (current) use of oral hypoglycemic drugs; Z79.899 Other long term (current) drug therapy | CPT/HCPCS: 83036; 96127; 99212 ==

== ENCOUNTER 2024-07-14 15:29 | Outpatient (AMB) | payer OTHER, SELFPAY ==
--- NOTE | 2024-07-14 16:18 | MHC.PC.OV ---
Vital Signs 07/14/24 16:25 Height 5 ft 5 in Weight 172 lb 4 oz BMI 28.7 BP 132/78 Blood Pressure Location Rt brachial Position Sitting Respiration 16 Pulse 64 Pulse Source Pulse Oximeter Temp 98.0 F Temp Source Oral Pulse Oximetry (%) 95 Oxygen Delivery Method Room Air Intake Visit Reasons: f/u back pain Intake Note: patient is scheduled for back pain patiemnt say pain is in lower back and affecting her legs and her walking patient daughter will like to know if she can prescribed a blood pressure cuff. Equipment Maintenance Supervisor Required: Yes Equipment Maintenance Supervisor Name: daugther Information Interpreted: clinical only Code Machine Operator: Present Accompanied by: Daughter Is last menstrual period known: No Post menopausal: No Patient : No Allergies seafood Allergy (Unknown, Verified 07/14/24 16:21) rash, GI upset losartan Adverse Reaction (Severe, Verified 07/14/24 16:21) blurry vision, muscle pain. Medication List - Last Reconciled 07/14/24 by Clifford Cowan MD amitriptyline 50 mg PO BEDTIME 90 days amlodipine 10 mg PO DAILY 90 days baclofen 10 mg PO DAILY 90 days bisacodyl (Dulcolax (bisacodyl)) 10 mg DC DAILY PRN blood pressure monitor Automatic, Digital. Dx: I10. Daily As directed, 999 days/lifetime blood sugar diagnostic (FreeStyle Lite Strips) Test Blood sugar 2 times a day As directed, 90 days blood-glucose meter (FreeStyle Lite Meter kit) DX: E11.9, test blood sugar twice a day, duration 999 days celecoxib 100 mg PO BID 90 days cetirizine (Allergy Relief (cetirizine)) 10 mg PO DAILY PRN 90 days clotrimazole-betamethasone 1-0.05 % 1 appl topical BID 2 weeks diclofenac sodium 1% 2 grams topical QID 30 days famotidine 20 mg PO BEDTIME 30 days gabapentin 600 mg PO TID 90 days glipizide ER 5 mg PO DAILY 30 days Grab bar Daily As directed, 999 days hydrochlorothiazide 25 mg PO QAM 90 days hydroxychloroquine 200 mg PO BID ketotifen fumarate 0.025%(0.035%) ([place]) 1 drp ophthalmic (eye) Q12H PRN 30 days lancets (FreeStyle Lancets) As directed metformin 1 tab (500mg) AM and 1.5 tabs (750mg) PM orally 2 times a day; 90 days miscellaneous medical supply Diabetic shoes. Daily As directed, 999 days/lifetime. Disp #1 pair miscellaneous medical supply Custom Right AFOy, daily As directed. 999 days/lifetime. Disp #1 omeprazole 40 mg PO DAILY sennosides-docusate sodium 8.6-50 mg (Laxative Stool Softener With Senna) 1 tab-cap PO BID 1 month Shower Chair (Chair, shower) Daily As directed, 999 days simethicone (Gas Relief (simethicone)) 80 mg PO BID-QID PRN 30 days topiramate 25 mg PO DAILY valsartan 240 mg (1.5 x 160 mg) PO DAILY 90 days Tobacco use date assessed: 07/14/24 Fall risk assessment: No Falls in past year Dental Screening Dental Screen Date: 07/14/24 Did you have a dental visit in the last 12 months?: Yes Did you have a dental problem in the last 6 months where you did not have access to dental care?: No Was dental information given to patient?: No HPI f/u back pain HPI Details 63 y/o female presents to f/u back pain. Last A1c 8.6%. They report upper and lower back pain, x3 months. They note this has been getting worse. They note hx of rheumatoid arthritis. Uses baclofen, celecoxib, diclofenac gel, gabapentin for pain. She is out of hydroxychloroquine and it had been bothering her eyes. She notes worsening in the past few months. She also notes pain radiating into legs with worsened numbness and weakness. She also acknowledges bowel and bladder dysfunction [facility] Medical History Acquired right foot drop Chronic abdominal pain Plasma cell disorder Diabetes mellitus GERD (gastroesophageal reflux disease) HTN (hypertension) Elevated rheumatoid factor Surgical History History of hand surgery History of back surgery No pertinent past surgical history Family History Father No problems noted. Mother CVD (cardiovascular disease) Diabetes Sister In good health Son In good health Daughter In good health Social History (Reviewed 06/08/24 @ 16:07 by DORINDA Napoles Housing: Apartment Are you a primary urgent care technician to a significant other at home: No Do you presently have visiting nurse or other home services: No Alcohol intake: never Patient Tobacco Use Status: Never used Tobacco e-Cigarette/Vaping Use: Never Used Second Hand Smoke Exposure: No Patient : No service: No Current occupational status: unemployed and disabled Current occupation: right handed Current occupational exposures/hazards: No Cognitive needs: No Hearing needs: No Vision needs: Yes Questionnaire Thrive Questionnaire Date Thrive assessed: 07/14/24 I am a: Parent/Caregiver What is your living situation today?: I have a place to live, but I am worried about losing it in the future Within the past 12 months, did the food you bought not last and you didn't have the money to get more?: I choose not to answer this question Within the past 12 months, did you worry whether your food would run out before you got money to buy more?: Sometimes True Do you have trouble paying for medicines?: I choose not to answer this question Do you have trouble getting transportation to medical appointments?: Yes Do you have trouble paying your heating and electricity bill?: Yes Do you have trouble taking care of your child, family member or friend?: I choose not to answer this question Do you have trouble with day-to-day activities such as bathing, preparing meals, shopping, managing finances, etc.?: Yes Are you currently unemployed and looking for a job?: No Are you interested in more education?: No Currently or been in a relationship where the following occur: I choose not to answer THRIVE Score: 4 ALEXA-7 AMB Questionnaire ALEXA-7 Date ALEXA - 7 assessed: 06/08/24 Source: Developed by Drs. Kang West, Rebecca Griffith, Efrain Allison and colleagues, with an educational lynne from [employer]. Review of Systems Const Denies chills, Denies fatigue, Denies fever(s), Denies headache(s) and Denies weakness ENT Denies dizziness and Denies headache(s) Card Denies dyspnea Resp Denies cough, Denies dyspnea, Denies wheezing and Denies other (shortness of breath) Musc Reports back pain, Denies numbness and Denies tingling Neuro Denies dizziness, Denies headache(s), Denies numbness, Denies tingling and Denies weakness Psych Denies anxiety and Denies depression Endo Denies fatigue Aller/Immun Denies wheezing Physical exam (Primary Care) Vital Signs: Last Vital Signs Temp 98.0 F 07/14/24 16:25 Pulse 64 07/14/24 16:25 Resp 16 07/14/24 16:25 BP 132/78 07/14/24 16:25 Pulse Ox 95 07/14/24 16:25 Oxygen Delivery Method Room Air 07/14/24 16:25 BMI result Body Mass Index 28.7 Tobacco/Smoking Status: Tobacco use Status Tobacco use date assessed 07/14/24 07/14/24 16:29 Patient Tobacco Use Status Never used Tobacco 07/14/24 16:19 e-Cigarette/Vaping Use Never Used 07/14/24 16:19 Thrive Assessment: Date of Thrive Assessment Date Thrive assessed 07/14/24 07/14/24 16:29 Currently or been in a relationship where the following occur: I choose not to answer Const General: well developed; No acute distress Nutritional Appearance: well nourished Orientation/consciousness: patient oriented x3 HENMT Head: Yes normocephalic and Yes atraumatic Eyes General: appearance normal, both eyes and all related structures Pupils: Equal, round and reactive pupils present EOM: EOMs intact bilaterally Resp Effort & Inspection: normal respiratory effort Neuro General: patient oriented x3 and gait normal Cranial nerves: Yes Equal, round and reactive pupils present Psych Affect: normal affect Coding Level of Care Code Est Pt Level 4 (28654) Diagnoses Back pain M54.9 Rheumatoid arthritis involving multiple sites with positive rheumatoid factor M05.79 Rheumatoid arthritis location: multiple sites Rheumatoid factor presence: with rheumatoid factor Assessment & Plan Assessment & Plan (1) Back pain: Code(s): M54.9 - Dorsalgia, unspecified Category: Medical (2) Rheumatoid arthritis: Comment: ++RF -ve CCP dx 02/2023 HCQ 05/2023 Code(s): M06.9 - Rheumatoid arthritis, unspecified Category: Medical Qualifiers: Rheumatoid arthritis location: multiple sites Rheumatoid factor presence: with rheumatoid factor Qualified Code(s): M05.79 - Rheumatoid arthritis with rheumatoid factor of multiple sites without organ or systems involvement Plan severe/worsening mid and low back pain in a patient with significant osteoarthritis, rheumatoid arthritis and spinal stenoses. She notes worsening in the past few months she also notes pain radiating into legs with worsened numbness and weakness. She also acknowledges bowel and bladder dysfunction will get an urgent MRI follow-up after MRI to discuss next steps. May need referral to neurosurgery or neuro spine patient also has significant rheumatoid arthritis and is no longer on hydroxychloroquine wore followed by rheumatology. She says hydroxychloroquine was working in had significantly improved her back pain but was causing problems with her eyes will refer her back to Rheumatology she is still taking baclofen, celecoxib, diclofenac gel, gabapentin for pain continue these. She is on baclofen and I will refill this. Orders: Orders MR lumbar spine wo con Today M48.061 - Spinal stenosis, lumbar region without neurogenic claudication, R29.898 - Other symptoms and signs involving the musculoskeletal system, R32 - Unspecified urinary incontinence Referrals Rheumatology Referral M05.79 - Rheumatoid arthritis with rheumatoid factor of multiple sites without organ or systems involvement, M25.50 - Pain in unspecified joint, M54.9 - Dorsalgia, unspecified Medications: Refilled blood pressure monitor Automatic, Digital. Dx: I10. Daily As directed, 999 days/lifetime 1 ea 0RF I10 - Essential (primary) hypertension baclofen 10 mg PO DAILY 90 days 90 tabs 2RF
[2024-07-14 16:25] VITALS: BP 132/78; PULSE 64; RESP 16; TEMP 36.7; O2SAT 95; BMI 28.7
== END 2024-07-14 17:05 ==
LOC: HO.HMCFM 15:29
PROVIDERS: PCP Family Medicine; Visit Provider Family Medicine
DX: M54.9 Dorsalgia, unspecified (principal); M05.79 Rheumatoid arthritis with rheumatoid factor of multiple sites without organ or systems involvement

== ENCOUNTER → 2024-07-14 15:29 | Outpatient (BNVA) | payer OTHER, SELFPAY | PROVIDERS: PCP Family Medicine; Visit Provider Family Medicine | DX: M54.9 Dorsalgia, unspecified (principal); M05.79 Rheumatoid arthritis with rheumatoid factor of multiple sites without organ or systems involvement | CPT/HCPCS: 99212 ==

== ENCOUNTER 2024-07-15 19:15 | Outpatient (REF) | payer OTHER, SELFPAY ==
--- NOTE | ~2024-07-15 | MR_ITS ---
CLINICAL HISTORY: M48.061 - Spinal stenosis, lumbar region without neurogenic claudication --- Additi onal Notes or Special Instructions: history of spinal stenosis with worsening pain, paresthesias, wea kness and recent worsened incontinence of urine and stool. MR lumbar spine without gadolinium Comparison: MR/REG/SR - MR LUMBAR SPINE WO/W CON - 07/03/22 13:15 EDT Findings: There is minimal retrolisthesis of L4 on L5, similar to prior. There is also mild retrolisthesis of L5 on S1, similar to prior. No acute fracture or pathologic bone lesion. There are mild Modic endplate changes involving the superior endplate of L4. Cauda equina and conus medullaris within normal limits. Multilevel degenerative changes are present. Level by level description will follow: At L1-2 there is a circumferential disc bulge and mild facet arthrosis. No central canal narrowing. No foraminal narrowing. At L2-3 there is a circumferential disc bulge and moderately severe facet arthrosis. There is mild central canal narrowing measuring 8 mm in AP dimensions, Unchanged. Mild bilateral foraminal narrowing present. At L3-4 there is a circumferential disc bulge as well as a focal protrusion in the left neural foramen measuring 10 mm in width and 5 mm in AP dimensions. Moderately severe bilateral foraminal narrowing is present, slightly worsened in comparison to prior. AP diameter of the central canal measures 7 mm consistent with moderate central canal narrowing. At L4-5 there is a circumferential disc bulge and severe right-sided facet arthrosis. There has been a posterior decompression at this level. Just above the decompression site there is ligamentum flavum hypertrophy which results in moderate canal stenosis with an AP diameter of 7 mm, unchanged. Severe right and moderately severe left foraminal narrowing. At L5-S1 there is severe disc height loss and a posterior disc osteophyte complex. No central canal narrowing. There is moderate left and severe right foraminal narrowing, similar to prior. IMPRESSION: Multilevel degenerative change of the lumbar spine, without significant interval change in comparison to 2022. Level by level description above, spinal stenosis most severe at L3-4 and L4-5. Multilevel moderate to severe foraminal narrowing, most severe on the right at L4-5 and L5-S1. This document has been electronically signed by: Herman See MD on 07/15/2024 21:13:19
== END 2024-07-15 19:16 | disposition home or self-care (01) ==
LOC: HO.MRI 19:15
PROVIDERS: PCP Family Medicine; Visit Provider Family Medicine
DX: M48.061 Spinal stenosis, lumbar region without neurogenic claudication (principal); R29.898 Other symptoms and signs involving the musculoskeletal system; R32 Unspecified urinary incontinence
CPT/HCPCS: 72148

== ENCOUNTER → 2024-07-15 19:15 | Outpatient (BNV) | payer OTHER, SELFPAY | PROVIDERS: PCP Family Medicine; Visit Provider Radiology Diagnostic Radiology | DX: M48.061 Spinal stenosis, lumbar region without neurogenic claudication (principal) | CPT/HCPCS: 72148 ==

== ENCOUNTER 2024-09-07 11:34 | Outpatient (REF) | payer OTHER, SELFPAY ==
--- OUTSIDE RECORDS SUMMARY | 2024-09-08 12:27 | XMS_ITS | Clinical Summary ---
Author Organization [facility] Address [address] [address] Phone Care Team Providers Care Sew On Operator Name Role Phone Prasad Stanley MD Unavailable [phone] Pcp, Unknown Primary Care Provider Unavailabl e Allergies No known active allergies Medications celecoxib (CELEBREX) 200 MG capsule Take 200 mg by mouth daily. Active diclofenac sodium (VOLTAREN) 1 % Gel Apply 2 g topically 2 (two) times a day. Active valsartan (DIOVAN) 160 MG tablet Take 160 mg by mouth daily. Active metFORMIN (GLUCOPHAGE) 500 MG tablet Take 500 mg by mouth daily with breakfast. Active gabapentin (NEURONTIN) 300 MG capsule Take 400 mg by mouth 3 (three) times a day. Active acetaminophen (TYLENOL) 500 MG tablet Take 500 mg by mouth every 8 (eight) hours as needed for pain (specific location in comments). Active amLODIPine (NORVASC) 5 MG tablet Take 5 mg by mouth daily. Active Active Problems Problem Noted Date Diagnosed Date Type 2 diabetes mellitus wit h diabetic polyneuropathy, without long-term current use of insulin 09/12/2019 Assessment & Plan (09/12/2019 1:21 PM EDT): Medications: -metformin 500mg once daily -ACEI/ARB: valsartan 160mg daily -statin: not currently taking Last labs: -A1C: unkown -microalbumin: unknown -lipids: unkown Last foot exam: due. Will refer to podiatry for DM foot care and neuropathy. May be able to help her get appropriate brace for RLE as well. Can refer to ortho if not. Last eye exam: unsure. Need to get records from previous provider. Will have her repeat labs since it has been >3 months. Will need close follow up for diabetes mgmt once she has had those labs done. Undiagnosed cardiac murmurs 09/12/2019 Assessment & Plan (09/12/2019 1:18 PM EDT): Murmur on exam not previously noted per patient and her son -will order echocardiogram for further evaluation Right upper quadrant pain 09/12/2019 Assessment & Plan (09/12/2019 1:24 PM EDT): Persistent for >3months with recent worsening. No signs of acute cholecystitis today. -will obtain labs and abdominal u/s Essential hypertension 09/12/2019 Assessment & Plan (09/12/2019 1:25 PM EDT): Well controlled on current medication regimen -continue valsartan 160mg daily -continue amlodipine 5mg daily Neuropathy 09/12/2019 Assessment & Plan (09/12/2019 1:24 PM EDT): May be 2/2 T2DM and lumbar/cervical DDD. Currently taking gabapentin 400mg po TID which helps some -request previous records including recent [facility] evaluation that son states diagnosed her as having CPT -will refer to podiatry for DM foot care -discussed EMG may be appropriate if not previously completed to better evaluate cause of her neuropathy Social History Tobacco Use Types Packs/Day Years Used Date Smoking Tobacco: Never Smokeless Tobacco: Never Alcohol Use Standard Drinks/Week Comments Never 0 (1 standard drink = 0.6 oz pur e alcohol) Child or Family Care Answer Date Record ed Do you have problems with on e of the following making it difficult for you to work, study, or receive health care? No 09/09/2019 Education Answer Date Recorded Are you interested in more education? Not on elaina e 06/13/2022 Are you concerned about learning? Not on file 06/13/2022 No 06/13/2022 No 06/13/2022 Food Answer Date Recorded Within the past 6 months we worried whether our food would run out before we got money to buy more. Never True 09/09/2019 Within the past 6 months the food we bought just didn't last and we didn't have enough money to get more. Never True 0 Paying for Meds Answer Date Recorded Do you have trouble paying for medicines? No 09/09/2019 Paying Utility Bills Answer Date Record ed Do you have trouble paying your heating or elect ricity bill? No 09/09/2019 Transportation Answer Date Recorded Has the lack of transportati on kept you from medical appointments or from getting medications? No 09/09/2019 Digital Access Answer Date Recorded No 07/12/2022 No 07/12/2022 No 07/12/2022 Reliable internet access at home? Not on file 07/12/2022 Device with a working camera? Not on file Comments Unknown Sex and Gender Information Value Date Recorded Sex Assigned at Female 06/27/2021 6:53 PM EDT Legal Sex Female 2:52 PM EDT Gender Identity Female 06/27/2021 6:53 PM EDT Sexual Orientation Asexual 06/27/2021 6: 53 PM EDT Last Filed Vital Signs Vital Sign Reading Time Taken Comments Blood Pressure 112/74 09/09/2019 4:08 PM EDT Pulse 72 09/09/2019 4:08 PM EDT Temperature 37.2 C (98.9 F) 09/09/2019 4:08 PM EDT Respiratory Rate - - Oxygen Saturation 98% 09/09/2019 4:08 PM EDT Inhaled Oxygen Concentration - - Weight 78.7 kg (173 lb 6.4 oz) 09/09/2019 4:08 P M EDT shoes on Height 167.6 cm (5' 6 ) 09/09/2019 4:08 PM EDT Body Mass Index 27.99 09/09/2019 4:08 PM EDT Plan of Treatment Health Maintenance Due Date Last Done Comments BLOOD PRESSURE 1959 CREATININE LEVEL 1959 HEMOGLOBIN A1C 1959 POTASSIUM LEVEL 1959 HEPATITIS C SCREENING 10/18/1977 HIV ONE-TIME SCREENING (18-6 5 YEARS) 10/18/1977 LIPID PANEL 10/18/1977 PNEUMOCOCCAL VACCINES (50+ years) (1 of 2 - PCV) 10/18/1978 PAP SMEAR 10/18/1980 MAMMOGRAM 1999 COLOGUARD 10/18/2004 COLONOSCOPY 10/18/2004 COLORECTAL CANCER SCREENING 10/18/2004 FIT TEST 10/18/2004 FOBT 10/18/2004 SIGMOIDOSCOPY 10/18/2004 VIRTUAL COLONOSCOPY 10/18/2004 ZOSTER VACCINES (1 of 2) 10/18/2009 DIABETIC EYE EXAM 09/12/2019 RSV VACCINE (1 - Risk 60-74 years 1-dose series) 2019 DEPRESSION SCREENING 09/08/2020 09/09/2019 COVID-19 VACCINE (3 - 2023-2 5 season) 2023 03/13/2021, 01/15/2021 Adult Td,Tdap Booster 01/07/2026 01/08/2016 , 12/06/2015 SMOKING STATUS SCREENING (On ce After 26 Yrs) Completed 09/09/2019 HEPATITIS A VACCINES Aged Out No long er eligible based on patient's age to complete this topic HIB VACCINES Aged Out No longer eligi ble based on patient's age to complete this topic MENINGOCOCCAL VACCINES (ACWY) Aged Out No longer eligible based on patient's age to complete this topic MENINGOCOCCAL VACCINES (B) Aged Out N o longer eligible based on patient's age to complete this topic Medical Devices Not on file Insurance [facility] [place] [address] [place] [address] [place] [address] [place] [address] [place] [place] [address] [place] [address] [place] [address] [facility] Care Teams Sew On Operator Relationship Specialty Start Date End Date Pcp, Unknown PCP - General 10/03/20 Prasad Stanley MD [address] [place] [address], [address] [place] [address] [email or web address] Insurance Assigned Provider Internal Medicine 09/08/19 Additional Source Comments The information contained in this document represents components of the legal health record. It is not the complete legal health record.[facility]
== END 2024-09-07 11:35 | disposition home or self-care (01) ==
LOC: HO.HOSX 11:34
PROVIDERS: Visit Provider Physician Assistant
DX: Z13.89 Encounter for screening for other disorder (principal)

== ENCOUNTER 2024-09-20 09:54 | Outpatient (REF) | payer OTHER, SELFPAY ==
--- OUTSIDE RECORDS SUMMARY | 2024-09-20 11:47 | XMS_ITS | Clinical Summary ---
Author Organization [facility] Address [address] [address] Phone Care Team Providers Care Fitness Floor Attendant Name Role Phone Prasad Stanley MD Unavailable [phone] Pcp, Unknown Primary Care Provider Unavailabl [...] topic Medical Devices Not on file Insurance [place] [address] [employer] [place] [address] [address] [place] [address] [address] [address] [employer] [employer] Care Teams Fitness Floor Attendant Relationship Specialty Start Date End Date Pcp, Unknown PCP - General 10/03/20 Prasad Stanley MD [address] [place] [address], [address] [place] [address] [email or web address] Insurance Assigned Provider Internal Medicine 09/08/19 Additional Source Comments The information contained in this document represents components of the legal health record. It is not the complete legal health record.[facility]
[2024-09-20 12:13] LABS: Alanine Aminotransferase 36 U/L (0-31); Albumin Level 4.5 g/dL (3.5-5.0); Alkaline Phosphatase 74 U/L (39-117); Anion Gap 13 (12-20); Aspartate Amino Transferase 29 U/L (5-31); Blood Urea Nitrogen 10 mg/dL (9-16); Calcium 9.5 mg/dL (8.4-10.2); Carbon Dioxide 26 mmol/L (22-29); Chloride 108 mmol/L (96-108); Cholesterol 207 mg/dL (<200); Estimated Glomerular Filt Rate > 60; HDL Cholesterol 56 mg/dL (>40); Potassium 4.1 mmol/L (3.3-5.1); Sodium 143 mmol/L (135-145); Total Protein 7.3 g/dL (6.5-8.0); Triglycerides 109 mg/dL (<150)
[2024-09-27 18:12] LABS: Calprotectin, Fecal 65 mcg/g
== END 2024-09-20 09:55 | disposition home or self-care (01) ==
LOC: HO.LAB 09:54
PROVIDERS: PCP Family Medicine; Visit Provider Nurse Practitioner Family
DX: Z12.11 Encounter for screening for malignant neoplasm of colon (principal); I10 Essential (primary) hypertension; E11.65 Type 2 diabetes mellitus with hyperglycemia; K21.9 Gastro-esophageal reflux disease without esophagitis; R14.0 Abdominal distension (gaseous); R13.10 Dysphagia, unspecified; R11.0 Nausea; R74.01 Elevation of levels of liver transaminase levels; R19.7 Diarrhea, unspecified; Z79.899 Other long term (current) drug therapy; Z79.84 Long term (current) use of oral hypoglycemic drugs
CPT/HCPCS: 36415; 80053; 80061; 83993; 86140; 86364; 87338; 99202

== ENCOUNTER 2024-09-20 09:54 | Outpatient (AMB) | payer OTHER, SELFPAY ==
--- NOTE | 2024-09-20 10:05 | A.OFFVIS_ITS ---
Vital Signs 09/20/24 10:08 Height 5 ft 5 in Weight 171 lb 15.369 oz BMI 28.6 BP 144/67 H Blood Pressure Location Lt brachial Position Sitting Pulse 59 Intake Visit Reasons: colo screening Intake Note: Andrés presents in the office as a new patient for a colonoscopy screening. CC: She states she has some discomfort in her stomach and bloating. Nausea to her stomach and feels like she is going to explode Allergies seafood Allergy (Unknown, Verified 09/20/24 10:08) rash, GI upset losartan Adverse Reaction (Severe, Verified 09/20/24 10:08) blurry vision, muscle pain. Medication List - Last Reconciled 09/20/24 by Fabienne Phillips CNP amitriptyline 50 mg PO BEDTIME 90 days amlodipine 10 mg PO DAILY 90 days baclofen 10 mg PO DAILY 90 days bisacodyl (Dulcolax (bisacodyl)) 10 mg HI DAILY PRN blood pressure monitor Automatic, Digital. Dx: I10. Daily As directed, 999 days/lifetime blood sugar diagnostic (FreeStyle Lite Strips) Test Blood sugar 2 times a day As directed, 90 days blood-glucose meter (FreeStyle Lite Meter kit) DX: E11.9, test blood sugar twice a day, duration 999 days celecoxib 100 mg PO BID 90 days cetirizine (Allergy Relief (cetirizine)) 10 mg PO DAILY PRN 90 days clotrimazole-betamethasone 1-0.05 % 1 appl topical BID 2 weeks diclofenac sodium 1% 2 grams topical QID 30 days famotidine 20 mg PO BEDTIME 30 days fluconazole 150 mg PO Q3D 2 doses gabapentin 600 mg PO TID 90 days glipizide ER 5 mg PO DAILY 30 days Grab bar Daily As directed, 999 days hydrochlorothiazide 25 mg PO QAM 90 days hydroxychloroquine 200 mg PO BID ketotifen fumarate 0.025%(0.035%) ([place]) 1 drp ophthalmic (eye) Q12H PRN 30 days lancets (FreeStyle Lancets) As directed metformin 1 tab (500mg) AM and 1.5 tabs (750mg) PM orally 2 times a day; 90 days miscellaneous medical supply Diabetic shoes. Daily As directed, 999 days/lifetime. Disp #1 pair miscellaneous medical supply Custom Right AFOy, daily As directed. 999 days/lifetime. Disp #1 omeprazole 40 mg PO DAILY sennosides-docusate sodium 8.6-50 mg (Laxative Stool Softener With Senna) 1 tab- cap PO BID 1 month Shower Chair (Chair, shower) Daily As directed, 999 days simethicone (Gas Relief (simethicone)) 80 mg PO BID-QID PRN 30 days topiramate 25 mg PO DAILY valsartan 240 mg (1.5 x 160 mg) PO DAILY 90 days HPI HPI colo screening: Details: Patient is a 63-year-old female with PMH of seropositive RA on hydrochloroquine, diabetes, hypertension and GERD. Referred by PCP for pre colonoscopy screening Patient is accompanied by her daughter who is translating during this visit. The patient reports worsening abdominal bloating for approximately five years. The bloating is particularly severe after consuming bread, described as a sensation of the stomach about to explode. She also complains of nausea and burning pain associated with a liquid stomach medication received during an ER visit several months ago. Episodic gas reflux has been ongoing for five years, exacerbated by late-night eating, but is partially controlled by omeprazole 40mg daily since 2019. Famotidine is used PRN for burning symptoms, approximately once weekly. She notes intermittent difficulty swallowing solids, particularly feeling that food is stuck in her throat, but resolves when she drinks lemon juice. No impact on appetite or unintentional weight changes reported. Stool patterns include diarrhea twice weekly, usually non-bloody. Relevant comorbidities include type 2 diabetes managed with oral agents (metformin, glipizide) with reports of avgeage home blood gluose of 119. Also with hypertension. Patient denies: fever/chills, n/v, appetite changes, regurgitation,, unintentional wt loss or melena/hematochezia. Social hx: -denies ETOH use -denies recreational drug use -non-smoker - family hx as below -denies personal hx of CA -denies significant cardiopulmonary history -tolerated anesthesia in the past without difficulty. [facility] Medical History (Updated 09/20/24 @ 12:45 by Fabienne Phillips CNP) Diarrhea Dysphagia Acquired right foot drop Chronic abdominal pain Plasma cell disorder Diabetes mellitus GERD (gastroesophageal reflux disease) HTN (hypertension) Elevated rheumatoid factor Surgical History (Updated 09/20/24 @ 10:09 by NEAL Quigley) Hx of colonoscopy History of esophagogastroduodenoscopy (EGD) History of hand surgery History of back surgery No pertinent past surgical history Family History Father No problems noted. Mother CVD (cardiovascular disease) Diabetes Sister In good health Son In good health Daughter In good health Social History Housing: Apartment Are you a primary critical care educator to a significant other at home: No Do you presently have visiting nurse or other home services: No Alcohol intake: never Patient Tobacco Use Status: Never used Tobacco e-Cigarette/Vaping Use: Never Used Second Hand Smoke Exposure: No service: No Current occupational status: unemployed and disabled Current occupation: right handed Current occupational exposures/hazards: No Cognitive needs: No Hearing needs: No Vision needs: Yes Review of Systems Const Reports as per HPI ENT Reports as per HPI Card Reports as per HPI Resp Reports as per HPI GI Reports as per HPI Reports as per HPI Physical Exam Vital Signs: Last Vital Signs Pulse 59 09/20/24 10:08 BP 144/67 H 09/20/24 10:08 BMI result Body Mass Index 28.6 Const General: healthy appearing, no acute distress and well developed Nutritional Appearance: average body habitus Orientation/consciousness: patient oriented x3 HEENT Head: Yes normal to inspection, Yes normocephalic and Yes atraumatic Face and sinus: Yes normal facial exam Eyes General: appearance normal, both eyes and all related structures Neck Neck: Yes normal visual inspection Resp Effort & Inspection: normal respiratory effort, able to speak in complete sentences, no tracheal deviation and symmetric chest movement Auscultation: clear to auscultation bilaterally Cardio Jugular venous distension: no JVD Rate: regular rate Rhythm: regular rhythm Heart sounds: S1 normal heart sound present, S2 normal heart sound present, no gallops and no murmurs GI Inspection: Yes normal to inspection, No distended, Yes obesity and Yes striae Palpation (GI): Soft to palpation, not firm, nontender and No hepatosplenomegaly present Auscultation: normal bowel sounds Neuro General: patient oriented x3 Gait exam (Neuro): Normal gait present Psych Appearance: grossly normal Mental Status: mental status grossly normal Speech and movement: Normal speech and movement present Affect: normal affect Attitude: cooperative Thought process: Normal thought process present Thought content: Normal thought content present Insight: Good insight present (Psych) Judgement: Good judgement present (Psych) Assessment & Plan Assessment & Plan (1) Screening for colon cancer: Comment: Last colo 04/10/2017 colonoscopy ( completed at [facility] ) incomplete with inadequate prep-cecum/TI not visualized, ascending and sigmoid colon obscured by stool; other areas grossly normal, hemorrhoids Code(s): Z12.11 - Encounter for screening for malignant neoplasm of colon Category: Medical Plan: Incomplete colonoscopy in 2018. Additional Testing: Colonoscopy scheduled alongside upper endoscopy. Review external imaging records prior to testing. Medications: -Two-day clear liquid diet plus Miralax split prep protocol with prescribed laxative tablets and Miralax.; instructions for Gatorade purchase and clear liquid diet given. - understands diabetes medications will need to be held days prior to procedure. Nurse to review med holds per protocol. Patient educated on scheduling process, procedure preparation, including avoiding certain foods and ensuring clear liquid intake Advised on necessity for ride post-procedure due to sedation. (2) Bloating: Code(s): R14.0 - Abdominal distension (gaseous) Category: Medical Plan: Bloating triggered by bread and persistent diarrhea suggest potential gluten in tolerance or GI inflammation. Additional Testing: Blood tests for celiac disease and inflammatory markers (e.g., CRP, fecal calprotectin). Stool testing for H. pylori . Lifestyle Recommendations: Initiation of gluten-free diet only if positive celiac testing. (3) GERD (gastroesophageal reflux disease): Code(s): K21.9 - Gastro-esophageal reflux disease without esophagitis Category: Medical Qualifiers: Esophagitis presence: esophagitis presence not specified Qualified Code(s): K21.9 - Gastro-esophageal reflux disease without esophagitis Plan: Chronic reflux symptoms related to food triggers and episodic burning pain with partial but inconsistent response to omeprazole. Reviewed [facility] ER notes from 03/10/24 visit- CBC WNL; elevated glucose, ALT and alkaline phos, CMP otherwise WNL. Chest x-ray without acute abnormality, no other imaging obtained. Additional Testing: -Upper endoscopy to assess for GERD complications or peptic ulcer disease, scheduled alongside colonoscopy. Swallow study to investigate dysphagia complaints. -abdominal ultrasound to evaluate for Hepatopancreatobiliary etiology Medication Management: Trial of Pantoprazole 40mg oral daily before breakfast (stop PPI for two weeks prior for H. pylori testing). Encouraged to take pantoprazole as prescribed, taken at least 30-60 minutes before a meal. Education on GERD prevention : -Advised against heavy meals; encouraged small, frequent meals instead of large ones. - Instructed to remain upright for 2?3 hours after eating. - Advised to avoid late-night meals, spicy foods, caffeine, alcohol, known dietary triggers, and tight-fitting clothing. - Emphasis placed on gradual implementation of lifestyle changes to improve adherence and symptom control. - Avoid NSAIDs. (4) Diabetes mellitus: Code(s): E11.9 - Type 2 diabetes mellitus without complications Category: Medical Qualifiers: Diabetes mellitus type: type 2 Diabetes mellitus prison insulin use: without technician terminal and repeater use Diabetes mellitus complication status: with hyperglycemia Qualified Code(s): E11.65 - Type 2 diabetes mellitus with hyperglycemia Plan: Diabetes management requires close monitoring for contribution to GI symptoms such as gastroparesis. Additional Testing: Fasting blood glucose with lab orders. Medication Management: Current regimen to continue. Lifestyle Recommendations: Maintain dietary pattern supporting glycemic control. Follow clear liquid protocol pre-procedure. Plan Follow-up 3 months or sooner as needed Time: I spent a total of 45 minutes on the date of encounter which includes: Preparing to see the patient (reviewed previous documentation, test results and medical history) Performing a medically appropriate exam and/or evaluation Ordering medications, tests, and procedures Documenting clinical information in the health record Orders: Orders H pylori Ag Stool Today R14.0 - Abdominal distension (gaseous) US abdomen complete Today K21.9 - Gastro-esophageal reflux disease without esophagitis, R10.13 - Epigastric pain, R74.8 - Abnormal levels of other serum enzymes Comprehensive [place]. Panel Fast Today R74.01 - Elevation of levels of liver transaminase levels Lipid Panel Today E11.9 - Type 2 diabetes mellitus without complications [place] barium swallow Today R13.10 - Dysphagia, unspecified Transglutaminase IgA Today R19.7 - Diarrhea, unspecified Calprotectin, Fecal Today R19.7 - Diarrhea, unspecified C Reactive Protein Today R19.7 - Diarrhea, unspecified Medications: New bisacodyl (Dulcolax (bisacodyl)) Take four tablets pre colonoscopy instructions 20 mg (4 x 5 mg) PO ONCE 4 tabs 0RF 1 day pantoprazole Take 1 tablet daily 40 mg PO QAM 28 tabs 0RF polyethylene glycol 3350 (Miralax) per colonoscopy prep instructions 238 grams PO ONCE 238 grams 0RF Discontinued omeprazole Discontinued Reason: Doctor's Order 40 mg PO DAILY 90 caps 3RF K21.9 - Gastro-esophageal reflux disease without esophagitis Coding Level of Care Code New Pt New Pt Level 4 (65755) Patient Type New Diagnoses Screening for colon cancer Z12.11 Bloating R14.0 Gastroesophageal reflux disease, unspecified whether esophagitis present K21.9 Esophagitis presence: esophagitis presence not specified Type 2 diabetes mellitus with hyperglycemia, without long-term current use of insulin E11.65 Diabetes mellitus type: type 2 Diabetes mellitus technician terminal and repeater insulin use: without prison use Diabetes mellitus complication status: with hyperglycemia
[2024-09-20 10:08] VITALS: BP 144/67; PULSE 59; BMI 28.6
== END 2024-09-20 10:49 | disposition home or self-care (01) ==
LOC: HO.HGI 09:55
PROVIDERS: PCP Family Medicine; Visit Provider Nurse Practitioner Family
DX: Z01.818 Encounter for other preprocedural examination (principal); Z12.11 Encounter for screening for malignant neoplasm of colon; R14.0 Abdominal distension (gaseous); K21.9 Gastro-esophageal reflux disease without esophagitis; E11.65 Type 2 diabetes mellitus with hyperglycemia
CPT/HCPCS: 99204

== ENCOUNTER 2024-09-21 08:29 | Outpatient (AMB) | payer OTHER, SELFPAY ==
--- OUTSIDE RECORDS SUMMARY | 2024-09-21 08:40 | XMS_ITS | Clinical Summary ---
Author Organization [facility] Address [address] [address] Phone Care Team Providers Care Vehicle Check In Clerk Name Role Phone Prasad Stanley MD Unavailable [phone] Pcp, Unknown Primary Care Provider Unavailabl [...] topic Medical Devices Not on file Insurance [facility] [place] [address] [place] [address] [place] [address] [place] [address] [place] [address] [place] [address] [place] [address] [place] [address] [employer] [facility] Care Teams Vehicle Check In Clerk Relationship Specialty Start Date End Date Pcp, Unknown PCP - General 10/03/20 Prasad Stanley MD [address] [place] [address], [address] [place] [address] [email or web address] Insurance Assigned Provider Internal Medicine 09/08/19 Additional Source Comments The information contained in this document represents components of the legal health record. It is not the complete legal health record.[facility]
--- NOTE | 2024-09-21 08:42 | MHC.PC.OV ---
Vital Signs 09/21/24 08:46 Height 5 ft 5 in Weight 173 lb BMI 28.8 BP 120/60 Blood Pressure Location Lt brachial Position Sitting Respiration 14 Pulse 58 Pulse Source Pulse Oximeter Temp 97.8 F Temp Source Oral Pulse Oximetry (%) 96 Oxygen Delivery Method Room Air Intake Visit Reasons: review of MRI Lumbar Spine results Intake Note: patient is scheduled to review mri results Dobby Looms Pegger Required: No Allergies seafood Allergy (Unknown, Verified 09/21/24 08:43) rash, GI upset losartan Adverse Reaction (Severe, Verified 09/21/24 08:43) blurry vision, muscle pain. Tobacco use date assessed: 07/14/24 Dental Screening Dental Screen Date: 07/14/24 HPI review of MRI Lumbar Spine results HPI Details 63 y/o female presents to f/u spinal stenosis with worsening low back pain and increasing weakness/incontinence. Lumbar spine MRI 07/15/24 shows: Multilevel degenerative change of the lumbar spine, without significant interval change in comparison to 2022. Level by level description above, spinal stenosis most severe at L3-4 and L4-5. Multilevel moderate to severe foraminal narrowing, most severe on the right at L4-5 and L5-S1. [facility] Medical History (Updated 09/20/24 @ 12:45 by Fabienne Phillips CNP) Diarrhea Dysphagia Acquired right foot drop Chronic abdominal pain Plasma cell disorder Diabetes mellitus GERD (gastroesophageal reflux disease) HTN (hypertension) Elevated rheumatoid factor Surgical History (Updated 09/20/24 @ 10:09 by NEAL Quigley) Hx of colonoscopy History of esophagogastroduodenoscopy (EGD) History of hand surgery History of back surgery No pertinent past surgical history Family History Father No problems noted. Mother CVD (cardiovascular disease) Diabetes Sister In good health Son In good health Daughter In good health Social History Housing: Apartment Are you a primary rehab care assistant to a significant other at home: No Do you presently have visiting nurse or other home services: No Alcohol intake: never Patient Tobacco Use Status: Never used Tobacco e-Cigarette/Vaping Use: Never Used Second Hand Smoke Exposure: No service: No Current occupational status: unemployed and disabled Current occupation: right handed Current occupational exposures/hazards: No Cognitive needs: No Hearing needs: No Vision needs: Yes Questionnaire Thrive Questionnaire Date Thrive assessed: 06/08/24 I am a: Parent/Caregiver What is your living situation today?: I have a place to live, but I am worried about losing it in the future Within the past 12 months, did the food you bought not last and you didn't have the money to get more?: I choose not to answer this question Within the past 12 months, did you worry whether your food would run out before you got money to buy more?: Sometimes True Do you have trouble paying for medicines?: I choose not to answer this question Do you have trouble getting transportation to medical appointments?: Yes Do you have trouble paying your heating and electricity bill?: Yes Do you have trouble taking care of your child, family member or friend?: I choose not to answer this question Do you have trouble with day-to-day activities such as bathing, preparing meals, shopping, managing finances, etc.?: Yes Are you currently unemployed and looking for a job?: No Are you interested in more education?: No Currently or been in a relationship where the following occur: I choose not to answer THRIVE Score: 4 ALEXA-7 AMB Questionnaire ALEXA-7 Date ALEXA - 7 assessed: 06/08/24 Source: Developed by Drs. Kang West, Rebecca Griffith, Efrain Allison and colleagues, with an educational lynne from [employer]. Physical exam (Primary Care) Vital Signs: Last Vital Signs Temp 97.8 F 09/21/24 08:46 Pulse 58 09/21/24 08:46 Resp 14 09/21/24 08:46 BP 120/60 09/21/24 08:46 Pulse Ox 96 09/21/24 08:46 Oxygen Delivery Method Room Air 09/21/24 08:46 BMI result Body Mass Index 28.8 Tobacco/Smoking Status: Tobacco use Status Tobacco use date assessed 07/14/24 09/21/24 08:49 Patient Tobacco Use Status Never used Tobacco 09/21/24 08:49 e-Cigarette/Vaping Use Never Used 09/21/24 08:49 Thrive Assessment: Date of Thrive Assessment Date Thrive assessed 04/23/25 08/06/25 08:49 Currently or been in a relationship where the following occur: I choose not to answer Coding Level of Care Code Est Pt Level 3 (57250) Diagnoses Back pain M54.9 Hypertension, essential I10 Assessment & Plan Assessment & Plan (1) Back pain: Code(s): M54.9 - Dorsalgia, unspecified Category: Medical (2) Hypertension, essential: Code(s): I10 - Essential (primary) hypertension Category: Medical Plan Worsening low back pain with radicular symptoms and lower extremity weakness. MRI shows worsening of the spinal stenosis at L3-4 Also shows worsening foraminal stenoses at L4-L5 and L5-S1. Referred to neuro spine Blood pressure appears well controlled today. Goal is less than 140/90 Continue current medication regimen Orders: Referrals Neuro Spine Referral M48.061 - Spinal stenosis, lumbar region without neurogenic claudication, M54.16 - Radiculopathy, lumbar region, R20.2 - Paresthesia of skin, R29.898 - Other symptoms and signs involving the musculoskeletal system Medications: Refilled gabapentin 600 mg PO TID 270 tabs 2RF 90 days M48.061 - Spinal stenosis, lumbar region without neurogenic claudication
[2024-09-21 08:46] VITALS: BP 120/60; PULSE 58; RESP 14; TEMP 36.6; O2SAT 96; BMI 28.8
== END 2024-09-21 09:03 | disposition home or self-care (01) ==
LOC: HO.HMCFM 08:30
PROVIDERS: PCP Family Medicine; Visit Provider Family Medicine
DX: M54.9 Dorsalgia, unspecified (principal); I10 Essential (primary) hypertension

== ENCOUNTER → 2024-09-21 08:29 | Outpatient (BNVA) | payer OTHER, SELFPAY | PROVIDERS: PCP Family Medicine; Visit Provider Family Medicine | DX: I10 Essential (primary) hypertension (principal); M48.061 Spinal stenosis, lumbar region without neurogenic claudication; M54.16 Radiculopathy, lumbar region; R20.2 Paresthesia of skin; R29.898 Other symptoms and signs involving the musculoskeletal system | CPT/HCPCS: 99212 ==

== ENCOUNTER 2024-10-03 13:58 | Outpatient (AMB) | payer OTHER, SELFPAY ==
--- NOTE | 2024-10-03 14:12 | HO.SPINEOV ---
Vital Signs 10/03/24 14:13 Height 5 ft 5 in Weight 171 lb BMI 28.5 Intake Visit Reasons: spinal stenosis Intake Note: Ms. Rubalcava is here today c/o Low back pain. Finisher Map And Chart Required: Yes Finisher Map And Chart Name: Bianca Ornelas (Daughter) Allergies seafood Allergy (Unknown, Verified 10/03/24 14:15) rash, GI upset losartan Adverse Reaction (Severe, Verified 09/21/24 08:43) blurry vision, muscle pain. Physical Exam Vital Signs: BMI result Body Mass Index 28.5 Assessment & Plan Assessment & Plan (1) Scoliosis (and kyphoscoliosis), idiopathic: Code(s): M41.20 - Other idiopathic scoliosis, site unspecified Category: Medical Plan Dear Dr Cowan, Thank you for referring Mrs Rubalcava to our office today. She is a very nice 63-year-old woman, who is here with her daughter today who is helping with interpretation of Syriac. The patient had back surgery in 2014 for footdrop and numbness of her right foot with leg pain. She underwent what sounds like decompression at L4-5 and L5-S1 and that did help her leg pain. Ultimately the leg pain came back a few years later. Over the last 5 years she has had increased back pain and bilateral lower extremity pain with standing and walking. The footdrop remains the same as it was before her previous surgery. She comes in today for evaluation with MRI showing severe degenerative disc disease with foraminal stenosis at L4-5 and L5-S1. The patient has been through physical therapy in the last year and that did not really hurt her but did not help her all that much. She takes Tylenol and gabapentin. She takes Celebrex as well. PMH: Her daughter tells me that she is diabetic, her last A1c was 8.6. This is up from previous levels that were around 7. She also has a history of peripheral neuropathy as well. History of hypertension, osteopenia, appendectomy, , GERD, previous back surgery. Daughter denies any knowledge of coronary artery disease, strokes, pulmonary disease, blood clots, bleeding disorders, cancer. Social hx: She has not smoke, drink use any recreational drugs Medications: Valsartan, senna, pantoprazole, metformin, hydroxychloroquine, hydrochlorothiazide, gabapentin, glipizide, famotidine, Celebrex, baclofen, amlodipine, amitriptyline Allergies: Seafood and losartan Physical exam: Patient is awake alert oriented able to stand up on her own slowly, she has a well healed scar over midline lower lumbar region which is about 4 in in length. She has tenderness over this area diffusely. This is where she localizes her pain in her lumbar spine 2. She has 0/5 function of her right tibialis but the rest of the motor exam of the lower extremities are normal. Reflexes absent. Imaging review: Lumbar MRI in 2024 as well as lumbar CT scan in 2021 done at [place] shows evidence of postsurgical changes at L4-5 and L5-S1. There is severe disc collapse with specifically right-sided disc collapse at L4-5 and L5-S1 causing slight scoliotic curvature. There is right L5 and right L4 foraminal stenosis as well. Impression: 63-year-old female with previous L4-5, L5-S1 decompression done in [place] in 2014 secondary to patient with what sounds like nerve compression and footdrop on the right. The leg pain that she had before surgery went away, the footdrop never improve. This is fairly typical with presentation of footdrop. She has developed back pain over time in the last 5 years has had escalating lower lumbar pain which localizes itself right to where her incision is and radiates out laterally. She reports bilateral lower extremity pain, however I only see nerve compression on the right. With regard to the back pain, it certainly could be coming from the severely collapsed discs with the scoliotic curvature at L4-S1. To fix this would involve lumbar fusion surgery, I suspect would be an anterior lumbar interbody fusion based on the involvement of L5-S1. The other option is to try something less invasive like cortisone injections, however this would not fix the biomechanical problem of the scoliotic curvature. She would have to understand that this would only be a temporizing measure and would not fix the underlying issue. Right now she is interested in neither of these things in would just like to continue on with medications. I told her daughter I would be happy to see her back if something changes down the road or the pain escalates to a level where she would want to consider surgery. Before that however she would need to get her A1c back down to around 7. Thank you for allowing us to care for your patient. The total time spent with this visit with this patient was 45 minutes reviewing history, physical exam, lumbar imaging review, and implementation of treatment plan or further diagnostic testing Ed Rose MD,PhD [facility] Coding Level of Care Code New Pt Level 4 (33228) Diagnoses Scoliosis (and kyphoscoliosis), idiopathic M41.20
[2024-10-03 14:13] VITALS: BMI 28.5
--- OUTSIDE RECORDS SUMMARY | 2024-10-03 14:45 | XMS_ITS | Clinical Summary ---
Author Organization [facility] Address [address] [address] Phone Care Team Providers Care Manufactured Buildings Repairer Name Role Phone Prasad Stanley MD Unavailable [phone] Pcp, Unknown Primary Care Provider Unavailabl [...] Medical Devices Not on file Insurance [facility] [place] [address] [facility] [place] [address] [place] [address] [place] [address] [place] [address] [address] [address] ACO [facility] Care Teams Manufactured Buildings Repairer Relationship Specialty Start Date End Date Pcp, Unknown PCP - General 10/03/20 Prasad Stanley MD [address] [place] [address], [address] [place] [address] [email or web address] Insurance Assigned Provider Internal Medicine 09/08/19 Additional Source Comments The information contained in this document represents components of the legal health record. It is not the complete legal health record.[facility]
== END 2024-10-03 14:46 | disposition home or self-care (01) ==
LOC: HO.HNS 13:59
PROVIDERS: PCP Family Medicine; Referring Provider Family Medicine; Visit Provider Physician Assistant
DX: M41.20 Other idiopathic scoliosis, site unspecified (principal)
CPT/HCPCS: 99204

== ENCOUNTER → 2024-10-03 13:58 | Outpatient (BNVA) | payer OTHER, SELFPAY | PROVIDERS: PCP Family Medicine; Referring Provider Family Medicine; Visit Provider Physician Assistant | DX: M41.20 Other idiopathic scoliosis, site unspecified (principal) | CPT/HCPCS: 99202 ==

== ENCOUNTER 2024-11-11 13:11 | Outpatient (AMB) | payer MEDICARE, MEDICAID, SELFPAY ==
--- NOTE | 2024-11-11 13:18 | A.OFFVIS_ITS ---
Vital Signs 11/11/24 13:25 Height 5 ft 5 in Weight 173 lb 11.588 oz BMI 28.9 BP 160/100 H Blood Pressure Location Lt brachial Position Sitting Pulse 68 Pulse Source Pulse Oximeter Pulse Oximetry (%) 98 Oxygen Delivery Method Room Air Intake Visit Reasons: joint pain/RA Intake Note: Patient presents for joint pain/RA follow up. Entry Level Manager Required: Yes Entry Level Manager Language: Spanish Entry Level Manager Services: Entry Level Manager Present (Joseph Vuongmisael) Entry Level Manager Name: Joseph Becerril Information Interpreted: non-clinical & clinical Sider Mechanic: Sider Mechanic Present (Joseph Becerril) Accompanied by: Son Allergies seafood Allergy (Unknown, Verified 10/03/24 14:15) rash, GI upset losartan Adverse Reaction (Severe, Verified 09/21/24 08:43) blurry vision, muscle pain. Medication List - Last Reconciled 11/11/24 by Chayito Dowell MD amitriptyline 50 mg PO BEDTIME 90 days amlodipine 10 mg PO DAILY 90 days baclofen 10 mg PO DAILY 90 days bisacodyl (Dulcolax (bisacodyl)) 10 mg RI DAILY PRN bisacodyl (Dulcolax (bisacodyl)) 20 mg (4 x 5 mg) PO ONCE 1 day blood pressure monitor Automatic, Digital. Dx: I10. Daily As directed, 999 days/lifetime blood sugar diagnostic (FreeStyle Lite Strips) Test Blood sugar 2 times a day As directed, 90 days blood-glucose meter (FreeStyle Lite Meter kit) DX: E11.9, test blood sugar twice a day, duration 999 days celecoxib 100 mg PO BID 90 days cetirizine (Allergy Relief (cetirizine)) 10 mg PO DAILY PRN 90 days clotrimazole-betamethasone 1-0.05 % 1 appl topical BID 2 weeks diclofenac sodium 1% 2 grams topical QID 30 days famotidine 20 mg PO BEDTIME 30 days fluconazole 150 mg PO Q3D 2 doses gabapentin 600 mg PO TID 90 days glipizide ER 5 mg PO DAILY 30 days Grab bar Daily As directed, 999 days hydrochlorothiazide 25 mg PO QAM 90 days hydroxychloroquine 200 mg PO BID ketotifen fumarate 0.025%(0.035%) ([place]) 1 drp ophthalmic (eye) Q12H PRN 30 days lancets (FreeStyle Lancets) As directed metformin 1 tab (500mg) AM and 1.5 tabs (750mg) PM orally 2 times a day; 90 d ays miscellaneous medical supply Diabetic shoes. Daily As directed, 999 days/lifetime. Disp #1 pair miscellaneous medical supply Custom Right AFOy, daily As directed. 999 days/lifetime. Disp #1 pantoprazole 40 mg PO QAM polyethylene glycol 3350 (Miralax) 238 grams PO ONCE sennosides-docusate sodium 8.6-50 mg (Laxative Stool Softener With Senna) 1 tab- cap PO BID 1 month Shower Chair (Chair, shower) Daily As directed, 999 days simethicone (Gas Relief (simethicone)) 80 mg PO BID-QID PRN 30 days valsartan 240 mg (1.5 x 160 mg) PO DAILY 90 days HPI Comments Details: Patient is a 64-year-old female with GERD, hypertension, pad asthma cell disorder, diabetes complicated by neuropathy and seropositive rheumatoid arthritis here today for follow up Interval History: Patient last seen 09/03/[address] Mendosa - On Hydroxychloroquine 200mg bid - She states that she has good and bad days. Intermittent pain and swelling of her fingers. Usually related to change in weather and use. Can not think of any side effects related to hydroxychloroquine. Today - On Hydroxychloroquine 200mg bid - Self discontinued medication about 2-3 months ago due to side effects and not wanting to take too many pills - Did note that being on the Hydroxychloroquine did improve specifically her hands and wrists - Now being off, she notes that she has good days and bad days but overall is okay - Main complaint today is her left knee Rheumatologic History: ++RF -ve CCP dx 02/2023 HCQ 05/2023 Initial history: This is a 62-year-old female who presents for evaluation of polyarthralgias and positive rheumatoid factor. She was evaluated by Dr. Patton in 2019 and was deemed not to have an autoimmune rheumatic disease. Patient complains of bilateral hand pain and stiffness, bilateral pain in her feet. She has morning stiffness lasting 30 minutes. She states that she has had right footdrop since 2014 which improved after back surgery. She wears a brace for her left ankle and uses a cane. She has bilateral carpal tunnel syndrome. She did right hand carpal tunnel release surgery. She states that she has not improved much after the surgery. She is unaware of any family history of an autoimmune rheumatic disease. She denies any history of DVT/PE. She had 10 pregnancies in total, 3 miscarriages. Current Rheumatology Medication(s): Hydroxychloroquine 200mg bid [facility] Medical History (Updated 11/11/24 @ 14:05 by Chayito Dowell MD) Diarrhea Dysphagia Acquired right foot drop Chronic abdominal pain Plasma cell disorder Diabetes mellitus GERD (gastroesophageal reflux disease) HTN (hypertension) Elevated rheumatoid factor Surgical History Hx of colonoscopy History of esophagogastroduodenoscopy (EGD) History of hand surgery History of back surgery No pertinent past surgical history Family History Father No problems noted. Mother CVD (cardiovascular disease) Diabetes Sister In good health Son In good health Daughter In good health Social History Housing: Apartment Are you a primary critical care cns to a significant other at home: No Do you presently have visiting nurse or other home services: No Alcohol intake: never Patient Tobacco Use Status: Never used Tobacco e-Cigarette/Vaping Use: Never Used Second Hand Smoke Exposure: No service: No Current occupational status: unemployed and disabled Current occupation: right handed Current occupational exposures/hazards: No Cognitive needs: No Hearing needs: No Vision needs: Yes Review of Systems Const Details: Review of Systems Constitutional: Denies fever, chills, weight loss ENT: Denies vision changes, eye pain or eye redness, dental caries, dry mouth GI: Denies nausea, vomiting, diarrhea, abdominal pain, change in BM Pulm: Denies SOB, MARTIN, hemoptysis, wheezing Cards: Denies chest pain, palpitations Skin: Denies Raynaud's, rash, nail changes, photosensitivity, GEOTHERMAL PLANT MANAGER: Denies headaches, weakness, paresthesias, recurrent falls MSK: as per HPI All other systems reviewed and are unremarkable except noted above Physical Exam Exam Exam: Vital signs reviewed Physical Examination CONSTITUITIONAL Patient alert and cooperative. Well appearing and in no apparent painful distress MSK Hands * Right Hand: Able to make a fist. No swelling or tenderness to palpation of the PIPs or DIPs. TTP of the 2nd and 5th MCP * Left Hand: Able to make a fist. No swelling or tenderness to palpation of the MCPs, PIPs or DIPs. Wrists * Right Wrist: Full ROM to flexion and extension. No swelling or TTP * Left Wrist: Full ROM to flexion and extension. No swelling or TTP Elbows * Right Elbow: Full ROM. No swelling or TTP. No TTP of the medial epicondyle. No TTP of the lateral epicondyle * Left Elbow: Full ROM. No swelling or TTP. No TTP of the medial epicondyle. No TTP of the lateral epicondyle Shoulders * Right shoulder: Full ROM. No swelling noted. TTP of the AC joint. TTP of the subacromial bursa. No TTP of the posterior shoulder * Left shoulder: Full ROM. No swelling noted. TTP of the AC joint. TTP of the subacromial bursa. No TTP of the posterior shoulder Knees * Right knee: Full ROM. No swelling noted. No TTP of the knee joint line. No TTP of pes anserine bursa * Left knee: Full ROM. No swelling noted. TTP of the knee joint line. No TTP of pes anserine bursa. * Crepitations felt bilaterally Ankles * Right ankle: Good ankle dorsiflexion and plantar flexion. No swelling. No TTP of the ankle joint. Foot drop brace noted to the right leg * Left ankle: Good ankle dorsiflexion and plantar flexion. No swelling. No TTP of the ankle joint Feet * Right foot: Negative squeeze test * Left foot: Negative squeeze test Tender points? * No tenderness to palpation of the bilateral trapezius, supraspinatus, anterior costochondral junctions, bilateral suboccipital muscle insertions SKIN No rashes Vital Signs: Last Vital Signs BP 160/100 H 11/11/24 13:25 BMI result Body Mass Index 28.9 Results Reviewed Results Reviewed: Laboratory Tests 09/20/24 11:12 Sodium 143 Potassium 4.1 Chloride 108 Carbon Dioxide 26 BUN 10 Creatinine 0.57 AST 29 ALT 36 H C-Reactive Protein 0.15 Laboratory Tests 02/24/22 02/05/23 11:25 09:52 Rheumatoid Factor 159.2 H Cycl Citrul Peptide IgG 17 XR Left Knee 01/2022 FINDINGS: Medial compartment narrowing. Marginal osteophytes of all 3 compartments. No definite joint effusion. No acute abnormality. Overall, the appearance does not appear significantly changed. IMPRESSION: Moderate tricompartmental osteoarthritis, most severe in the medial compartment. No significant change. MR L Spine 10/2024 Findings: There is minimal retrolisthesis of L4 on L5, similar to prior. There is also mild retrolisthesis of L5 on S1, similar to prior. No acute fracture or pathologic bone lesion. There are mild Modic endplate changes involving the superior endplate of L4. Cauda equina and conus medullaris within normal limits. Multilevel degenerative changes are present. Level by level description will follow: At L1-2 there is a circumferential disc bulge and mild facet arthrosis. No central canal narrowing. No foraminal narrowing. At L2-3 there is a circumferential disc bulge and moderately severe facet arthrosis. There is mild central canal narrowing measuring 8 mm in AP dimensions, Unchanged. Mild bilateral foraminal narrowing present. At L3-4 there is a circumferential disc bulge as well as a focal protrusion in the left neural foramen measuring 10 mm in width and 5 mm in AP dimensions. Moderately severe bilateral foraminal narrowing is present, slightly worsened in comparison to prior. AP diameter of the central canal measures 7 mm consistent with moderate central canal narrowing. At L4-5 there is a circumferential disc bulge and severe right-sided facet arthrosis. There has been a posterior decompression at this level. Just above the decompression site there is ligamentum flavum hypertrophy which results in moderate canal stenosis with an AP diameter of 7 mm, unchanged. Severe right and moderately severe left foraminal narrowing. At L5-S1 there is severe disc height loss and a posterior disc osteophyte complex. No central canal narrowing. There is moderate left and severe right foraminal narrowing, similar to prior. IMPRESSION: Multilevel degenerative change of the lumbar spine, without significant interval change in comparison to 2022. Level by level description above, spinal stenosis most severe at L3-4 and L4-5. Multilevel moderate to severe foraminal narrowing, most severe on the right at L4-5 and L5-S1. XR Bilateral Hands 01/2023 FINDINGS (Right): There is mild narrowing of interphalangeal joints and change since the previous study. The metacarpophalangeal joints are preserved. Soft tissues are normal. Carpometacarpal joint and radiocarpal joints are preserved. There is no evidence of erosive changes or fractures. Soft tissues unremarkable. IMPRESSION: Mild changes of osteoarthritis in the interphalangeal joints. Mild changes of osteoarthritis in the interphalangeal joint. FINDINGS (Left): There is mild narrowing of interphalangeal joints and change since the previous study. The metacarpophalangeal joints are preserved. Soft tissues are normal. Carpometacarpal joint and radiocarpal joints are preserved. There is no evidence of erosive changes or fractures. Soft tissues unremarkable. IMPRESSION: Mild changes of osteoarthritis in the interphalangeal joints. Mild changes of osteoarthritis in the interphalangeal joint. Assessment & Plan Assessment & Plan (1) Rheumatoid arthritis: Comment: ++RF -ve CCP dx 02/2023 HCQ 05/2023 Code(s): M06.9 - Rheumatoid arthritis, unspecified Category: Medical Qualifiers: Rheumatoid arthritis location: multiple sites Rheumatoid factor presence: with rheumatoid factor Qualified Code(s): M05.79 - Rheumatoid arthritis with rheumatoid factor of multiple sites without organ or systems involvement Plan: #Seropositive RA Patient is a 64-year-old female with seropositive rheumatoid arthritis here today for follow up. Self discontinued hydroxychloroquine 08/2024 due to side effects. Has not notice much change in her symptoms since discontinuing. Still gets hand pain on and off as well as wrist pain which was what she got benefit from while being on hydroxychloroquine. Right now her main complaint is her left knee which I recommended topical diclofenac Plan - Hold Hydroxychloroquine - Topical diclofenac for left knee - RTC 6 months - Labs before visit: CBC, CMP, ESR, CRP (2) Osteoarthritis of knees, bilateral: Code(s): M17.0 - Bilateral primary osteoarthritis of knee Category: Medical Qualifiers: Osteoarthritis type: primary Qualified Code(s): M17.0 - Bilateral primary osteoarthritis of knee Plan: #OA knees Recommend topical diclofenac Plan This is my 1st visit with the patient. I spent 35 minutes reviewing the record and labs, taking a history, examining the patient, discussing the treatment plan, ordering diagnostic work up and documenting in the medical record Medications: Changed From diclofenac sodium 1% 2 grams topical QID 30 days 100 grams 2RF M17.12 - Un ilateral primary osteoarthritis, left knee To diclofenac sodium 1% 4 grams topical QID 100 grams 5RF 30 days M17.12 - Unilateral primary osteoarthritis, left knee Discontinued celecoxib Discontinued Reason: Doctor's Order 100 mg PO BID 90 days 180 caps 2RF Coding Level of Care Code Est Pt Level 4 (30200) Complex EM visit Add On G2211 Diagnoses Rheumatoid arthritis involving multiple sites with positive rheumatoid factor M05.79 Rheumatoid arthritis location: multiple sites Rheumatoid factor presence: with rheumatoid factor Primary osteoarthritis of both knees M17.0 Osteoarthritis type: primary
[2024-11-11 13:25] VITALS: BP 160/100; PULSE 68; O2SAT 98; BMI 28.9
--- OUTSIDE RECORDS SUMMARY | 2024-11-11 14:31 | XMS_ITS | Clinical Summary ---
Author Organization [facility] Address [address] [address] Phone Care Team Providers Care Biotech Production Specialist Name Role Phone Prasad Stanley MD Unavailable [phone] Pcp, Unknown Primary Care Provider Unavailabl [...] years) (1 of 2 - PCV) 10/18/1978 MAMMOGRAM 1999 COLOGUARD 10/18/2004 COLONOSCOPY 10/18/2004 COLORECTAL CANCER SCREENING 10/18/2004 FIT TEST 10/18/2004 FOBT 10/18/2004 SIGMOIDOSCOPY 10/18/2004 VIRTUAL COLONOSCOPY 10/18/2004 ZOSTER VACCINES (1 of 2) 10/18/2009 DIABETIC EYE EXAM 09/12/2019 RSV VACCINE (1 - Risk 60-74 years 1-dose series) 2019 DEPRESSION SCREENING 09/08/2020 09/09/2019 INFLUENZA VACCINE (#1) 2024 0, 11/03/2016 COVID-19 VACCINE (3 - 2024-2 6 season) 2024 03/13/2021, 01/15/2021 OSTEOPOROSIS SCREENING INITI AL (ONE-TIME) 10/18/2024 Adult Td,Tdap Booster 01/07/2026 01/08/2016 , 12/06/2015 [...] topic Medical Devices Not on file Insurance [facility] [place] [address] [place] [address] [address] [place] [address] [address] [place] [address] [address] [place] [address] [address] [place] [address] [place] [address] [address] [place] [place] [address] A[address] [facility] Care Teams Biotech Production Specialist Relationship Specialty Start Date End Date Pcp, Unknown PCP - General 10/03/20 Prasad Stanley MD [address] [place] [address], [address] [place] [address] [email or web address] Insurance Assigned Provider Internal Medicine 09/08/19 Additional Source Comments The information contained in this document represents components of the legal health record. It is not the complete legal health record.[facility]
== END 2024-11-11 14:05 | disposition home or self-care (01) ==
PROVIDERS: PCP Family Medicine; Visit Provider Student in an Organized Health Care Education/Training Program
DX: M05.79 Rheumatoid arthritis with rheumatoid factor of multiple sites without organ or systems involvement (principal); M17.0 Bilateral primary osteoarthritis of knee
CPT/HCPCS: 99214; G2211

== ENCOUNTER → 2024-11-11 13:11 | Outpatient (BNVA) | payer MEDICARE, MEDICAID, SELFPAY | PROVIDERS: PCP Family Medicine; Visit Provider Student in an Organized Health Care Education/Training Program | DX: M05.79 Rheumatoid arthritis with rheumatoid factor of multiple sites without organ or systems involvement (principal); M17.0 Bilateral primary osteoarthritis of knee | CPT/HCPCS: 99212 ==

== ENCOUNTER 2024-11-17 09:13 | Outpatient (REF) | payer MEDICARE, MEDICAID, SELFPAY ==
--- NOTE | ~2024-11-17 | US_ITS ---
CLINICAL HISTORY: K21.9 - Epigastric pain, elevated liver enzymes US abdomen complete Comparison: None provided Findings: The visualized pancreas is normal. The aorta and inferior vena cava are normal caliber. The appearance of the liver suggests fatty infiltration. There is no intrahepatic bile duct dilatation. The common duct is 5.0 mm in diameter. The gallbladder is normal. There is no sonographic Zhang sign. The main portal vein is antegrade. The right kidney is 10.7 cm in length. The left kidney is 11.3 cm in length. The spleen is normal. No ascites. IMPRESSION: 1. Hepatic steatosis. This document has been electronically signed by: Rafiq Cardenas MD on 11/18/2024 09:21:59
--- OUTSIDE RECORDS SUMMARY | 2024-11-17 10:03 | XMS_ITS | Clinical Summary ---
Author Organization [facility] Address [address] [address] Phone Care Team Providers Care Benefit Specialist Name Role Phone Prasad Stanley MD Unavailable [phone] Pcp, Unknown Primary Care Provider Unavailabl [...] topic Medical Devices Not on file Insurance [facility] [place] [address] [place] [address] [place] [address] [place] [address] [place] [address] [place] [address] [place] [address] [place] [address] [place] [address] [place] [address] [place] [address] [address] [place] [address] [place] [address] [place] [address] [employer] [facility] [address] Care Teams Benefit Specialist Relationship Specialty Start Date End Date Pcp, Unknown PCP - General 10/03/20 Prasad Stanley MD [address] [place] [address], [address] [place] [address] [email or web address] Insurance Assigned Provider Internal Medicine 09/08/19 Additional Source Comments The information contained in this document represents components of the legal health record. It is not the complete legal health record.[facility]
== END 2024-11-17 09:14 | disposition home or self-care (01) ==
LOC: HO.US 09:13
PROVIDERS: PCP Family Medicine; Visit Provider Nurse Practitioner Family
DX: K21.9 Gastro-esophageal reflux disease without esophagitis (principal); R10.13 Epigastric pain; R74.8 Abnormal levels of other serum enzymes
CPT/HCPCS: 76700

== ENCOUNTER → 2024-11-17 09:16 | Outpatient (BNV) | payer MEDICARE, MEDICAID, SELFPAY | PROVIDERS: PCP Family Medicine; Visit Provider Specialist | DX: K76.0 Fatty (change of) liver, not elsewhere classified (principal); K21.9 Gastro-esophageal reflux disease without esophagitis | CPT/HCPCS: 76700 ==

== ENCOUNTER 2024-12-15 11:33 | Outpatient (AMB) | payer MEDICARE, MEDICAID, SELFPAY ==
--- NOTE | 2024-12-15 12:06 | A.OFFVIS_ITS ---
Vital Signs 12/15/24 12:27 Height 5 ft 5 in Weight 175 lb BMI 29.1 BP 128/78 Blood Pressure Location Lt brachial Position Sitting Intake Visit Reasons: [employer] annual exam Intake Note: here for pocket cutter annual last pap 10/22/22 pos HPV does have recurrent yeast infections Closing Agent Required: Yes Closing Agent Services: Closing Agent Present (Urdu) Closing Agent Name: ariel ID# [id number] Information Interpreted: non-clinical & clinical [employer]visor [employer]: [employer] Present (Ramya) Accompanied by: Daughter Allergies seafood Allergy (Unknown, Verified 12/15/24 12:29) rash, GI upset losartan Adverse Reaction (Severe, Verified 12/15/24 12:29) blurry vision, muscle pain. Medication List - Last Reconciled 12/15/24 by China Saanbria LPN amitriptyline 50 mg PO BEDTIME 90 days amlodipine 10 mg PO DAILY 90 days baclofen 10 mg PO DAILY 90 days bisacodyl (Dulcolax (bisacodyl)) 10 mg ME DAILY PRN bisacodyl (Dulcolax (bisacodyl)) 20 mg (4 x 5 mg) PO ONCE 1 day blood pressure monitor Automatic, Digital. Dx: I10. Daily As directed, 999 days/lifetime blood sugar diagnostic (FreeStyle Lite Strips) Test Blood sugar 2 times a day As directed, 90 days blood-glucose meter (FreeStyle Lite Meter kit) DX: E11.9, test blood sugar twice a day, duration 999 days cetirizine (Allergy Relief (cetirizine)) 10 mg PO DAILY PRN 90 days clotrimazole-betamethasone 1-0.05 % 1 appl topical BID 2 weeks diclofenac sodium 1% 4 grams topical QID 30 days famotidine 20 mg PO BEDTIME 30 days gabapentin 600 mg PO TID 90 days glipizide ER 5 mg PO DAILY 30 days Grab bar Daily As directed, 999 days hydrochlorothiazide 25 mg PO QAM 90 days hydroxychloroquine 200 mg PO BID ketotifen fumarate 0.025%(0.035%) ([place]) 1 drp ophthalmic (eye) Q12H PRN 30 days lancets (FreeStyle Lancets) As directed metformin 1 tab (500mg) AM and 1.5 tabs (750mg) PM orally 2 times a day; 90 days miscellaneous medical supply Diabetic shoes. Daily As directed, 999 days/lifetime. Disp #1 pair miscellaneous medical supply Custom Right AFOy, daily As directed. 999 days/lifetime. Disp #1 pantoprazole 40 mg PO QAM polyethylene glycol 3350 (Miralax) 238 grams PO ONCE sennosides-docusate sodium 8.6-50 mg (Laxative Stool Softener With Senna) 1 tab- cap PO BID 1 month Shower Chair (Chair, shower) Daily As directed, 999 days simethicone (Gas Relief (simethicone)) 80 mg PO BID-QID PRN 30 days valsartan 240 mg (1.5 x 160 mg) PO DAILY 90 days HPI HPI [employer] annual exam: Details: Patient is here with her daughter for a pocket cutter visit she was not seen last year when repeat Pap testing would of been indicated then secondary to positive HPV on the previous Pap. Translation was obtained via the allocations clerk via tablet. Patient did understand some Uruguayan and responded in Uruguayan to some questions. She was concerned that the exam would hurt. She also was concerned that she feels like that is sometimes she has a hard time going to the bathroom and it gets stuck. Also sometimes she finds herself needing to run to the bathroom to pee in discussing the timing of everything. She disclosed that she has not had a bowel movement in 3 days. She does sometimes drink water and eat vegetables to help her go to the bathroom and she does eat red plums to help her go she is diabetic and says her blood sugars have been basically within normal limits though if they get high she does notice she has more vaginal itching. She says her primary care doctor gave her 2 pills that she takes an that takes care of the itching. Also she says that she takes MiraLax to help her go to the bathroom but it was only prescribed for her colonoscopy. Though she does have it at home and she does understand that it does not affect her blood sugar if s he takes that she also was given some suppositories that help her go to the bathroom and they work as well she did not take either of them this morning though she took her diabetes medicine and her blood pressure medicine [facility] Medical History (Updated 12/15/24 @ 13:40 by Carly Hollingsworth CNM) Diarrhea Dysphagia Acquired right foot drop Chronic abdominal pain Plasma cell disorder Diabetes mellitus GERD (gastroesophageal reflux disease) HTN (hypertension) Elevated rheumatoid factor Surgical History Hx of colonoscopy History of esophagogastroduodenoscopy (EGD) History of hand surgery History of back surgery No pertinent past surgical history Family History Father No problems noted. Mother CVD (cardiovascular disease) Diabetes Sister In good health Son In good health Daughter In good health Social History Housing: Apartment Are you a primary child care aide to a significant other at home: No Do you presently have visiting nurse or other home services: No Alcohol intake: never Patient Tobacco Use Status: Never used Tobacco e-Cigarette/Vaping Use: Never Used Second Hand Smoke Exposure: No service: No Current occupational status: unemployed and disabled Current occupation: right handed Current occupational exposures/hazards: No Cognitive needs: No Hearing needs: No Vision needs: Yes Female Reproductive History Menstrual Menopause type: natural Total pregnancies: 7 Number of Living Children: 7 Date of last pap smear: 10/22/22 History of abnormal pap smear: Yes (pos HPV) Date of Mammogram: 11/22/21 History of abnormal mammogram: No Physical Exam Vital Signs: Last Vital Signs BP 128/78 12/15/24 12:27 BMI result Body Mass Index 29.1 Const General: healthy appearing, comfortable, no acute distress, well developed and alert Nutritional Appearance: average body habitus Orientation/consciousness: patient oriented x3 Limitations: no limitations HEENT Head: Yes normocephalic Neck Neck: Yes normal visual inspection Chest Chest palpation & inspection: normal inspection of the chest Breast/axilla inspection: normal inspection of the breasts and normal inspection of the axillae Breast/axilla palpation: normal palpation of the breasts and normal palpation of the axillae Resp Effort & Inspection: normal respiratory effort GI Inspection: Yes normal to inspection, No Abdominal wall edema and No distended Palpation (GI): Soft to palpation and nontender Other: ext exam wnl, postmenapausal changes, vagina moist, , no abnl discharge cx pink, smooth, adnexa nontender, not enlarged, uterus mobile nontender, hard stool palpable through vag ramos, very good muscle tone. abd non tender. General: Yes bladder normal to palpation External Female Exam: normal external appearance and normal appearance of the urethra Speculum Exam - Vagina: normal appearance of the vagina, normal palpation and normal vaginal discharge Speculum Exam - Cervix: normal appearance of the cervix, normal palpation and nontender Bimanual exam- vagina & uterus: normal bimanual exam, normal palpation, uterine size normal, bladder normal to palpation, consistency normal, normal palpation, uterine mobility normal, uterine shape normal, No Cervical tenderness present, non-tender and no cervical motion tenderness Bimanual Exam- Adnexa, other: normal adnexae, no masses, normal and No adnexal tenderness Neuro General: patient oriented x3 Results Reviewed Results Reviewed: Name: Loni Rubalcava Age/Sex: 62/F Attending: Carly Hollingsworth CNM : 1960 Submitted by: Carly Hollingsworth CNM Copies to: Clifford Cowan MD MR #: [id number] Status: DEP REF Collected: 10/22/22 Location: [facility] Received: 10/23/22 Interpretation General Category: Negative for intraepithelial lesion/malignancy. Adequacy: Endocervical component present. Interpretation: Inflammation with associated cellular changes. HPV mRNA E6/E7: DETECTED This assay detects E6/E7 viral messenger RNA (mRNA) from 14 high-risk HPV types (16, 18, 31, 33, 35, 39, 45, 51, 52, 56, 58, 59, 66, 68) HPV Type 16 RNA: Not Detected HPV Type 18/45 RNA: Not Detected HPV testing performed by [facility], [place], [place]. See reference laboratory portion of the EMR for entire report. Clinical Information LMP: Menopausal Previous PAP test: Yrs, WNL Material Received ThinPrep-Cervical Copies To Clifford Cowan MD [address] [place] [address] Carly Hollingsworth [address] [place] [address] Electronically Signed By: Camille Dwyer MD 11/03/22923 The Pap Test is a screening procedure with the inherent possibility of both false negative and false positive results. Results should be Patient: Loni Rubalcava Age/Sex: 62/F MR#: [id number] Page 1 of 2 Assessment & Plan Assessment & Plan (1) Diabetes type 2, controlled: Code(s): E11.9 - Type 2 diabetes mellitus without complications Category: Medical Qualifiers: Diabetes mellitus long term care pharmacist insulin use: without prison use Diabetes mellitus complication status: without complication Qualified Code(s): E11.9 - Type 2 diabetes mellitus without complications (2) Breast cancer screening by mammogram: Code(s): Z12.31 - Encounter for screening mammogram for malignant neoplasm of breast Category: Medical (3) Screening for cervical cancer: Code(s): Z12.4 - Encounter for screening for malignant neoplasm of cervix Category: Medical (4) Women's annual routine gynecological examination: Code(s): Z01.419 - Encounter for gynecological examination (general) (routine) without abnormal findings Category: Medical (5) Cervical cancer screening: Comment: 10/22/2022 Pap is negative but with positive HPV. Repeat Pap 1 year Code(s): Z12.4 - Encounter for screening for malignant neoplasm of cervix Category: Medical (6) Perimenopause: Comment: Patient is menopausal however the system is not allowing menopause to come up Code(s): N95.1 - Menopausal and female climacteric states Category: Medical (7) Constipation by delayed colonic transit: Comment: Prescribed as well as diet and water See note discussed in detail discussed meds that have been Code(s): K59.01 - Slow transit constipation Category: Medical Plan Patient is here with her daughter for a pocket cutter visit she was not seen last year when repeat Pap testing would of been indicated then secondary to positive HPV on the previous Pap. Translation was obtained via the allocations clerk via tablet. Patient did understand some Uruguayan and responded in Uruguayan to some questions. She was concerned that the exam would hurt. She also was concerned that she feels like that is sometimes she has a hard time going to the bathroom and it gets stuck. Also sometimes she finds herself needing to run to the bathroom to pee in discussing the timing of everything. She disclosed that she has not had a bowel movement in 3 days. She does sometimes drink water and eat vegetables to help her go to the bathroom and she does eat red plums to help her go she is diabetic and says her blood sugars have been basically within normal limits though if they get high she does notice she has more vaginal itching. She says her primary care doctor gave her 2 pills that she takes an that takes care of the itching. Also she says that she takes MiraLax to help her go to the bathroom but it was only prescribed for her colonoscopy. Though she does have it at home and she does understand that it does not affect her blood sugar if she takes that she also was given some suppositories that help her go to the bathroom and they work as well she did not take either of them this morning though she took her diabetes medicine and her blood pressure medicine. I strongly encouraged her to take the MiraLax on a more regular basis as it will not affect her blood sugar so that she is having regular bowel movements I also reviewed with her how often she is urinating and it does appear that it is within arrange of normal. I just urged her to simply not hold her urine too long as that is never a good thing to do. She had very good muscle tone and she wanted to know if her uterus was low or anything and it is not at all in fact it is high. She has an appointment with her primary care provider on February 10. I will send a prescription for Monistat cream for her to her pharmacy that she can use whenever she needs to. Pap smear was done as well as testing for infection simply looking for either yeast or BV though nothing was evident. She does have a mammogram ordered in the system but she says she last went 3 years ago I did recommend that she do make the appointment every year, that it is important for breast cancer screening. Medications: New miconazole nitrate 2% (Miconazole-7) For use for vaginal itching, yeast infection. 1 appful vaginal BEDTIME 45 grams 2RF 7 days Coding Level of Care Code Est Pt Prev Care >65y(80992) Diagnoses Controlled type 2 diabetes mellitus without complication, without long-term current use of insulin E11.9 Diabetes mellitus long term care pharmacist insulin use: without long term care pharmacist use Diabetes mellitus complication status: without complication Breast cancer screening by mammogram Z12.31 Screening for cervical cancer Z12.4 Women's annual routine gynecological examination Z01.419 Perimenopause N95.1 Constipation by delayed colonic transit K59.01
[2024-12-15 12:27] VITALS: BP 128/78; BMI 29.1
--- OUTSIDE RECORDS SUMMARY | 2024-12-15 14:30 | XMS_ITS | Clinical Summary ---
Author Organization [facility] Address [address] [address] Phone Care Team Providers Care Philosophy Specialist Name Role Phone Prasad Stanley MD Unavailable [phone] Pcp, Unknown Primary Care Provider Unavailabl [...] FOBT 10/18/2004 SIGMOIDOSCOPY 10/18/2004 VIRTUAL COLONOSCOPY 10/18/2004 RSV VACCINE (1 - Risk 50-74 years 1-dose series) 10/18/2009 ZOSTER VACCINES (1 of 2) 10/18/2009 DIABETIC EYE EXAM 09/12/2019 DEPRESSION SCREENING 09/08/2020 09/09/2019 INFLUENZA VACCINE (#1) [...] Insurance [facility] [place] [address] [place] [address] [place] [address] [place] [address] [address] [address] [address] [address] [place] [address] [address] [place] [place] [address] [employer] [facility] Care Teams Philosophy Specialist Relationship Specialty Start Date End Date Pcp, Unknown PCP - General 10/03/20 Prasad Stanley MD [address] [place] [address], [address] [place] [address] [email or web address] Assigned Provider Internal Medicine 09/08/19 Additional Source Comments The information contained in this document represents components of the legal health record. It is not the complete legal health record.[facility]
== END 2024-12-15 14:08 | disposition home or self-care (01) ==
LOC: HO.HWSM 11:33
PROVIDERS: PCP Family Medicine; Visit Provider Advanced Practice Midwife
DX: Z01.419 Encounter for gynecological examination (general) (routine) without abnormal findings (principal); E11.9 Type 2 diabetes mellitus without complications; Z12.31 Encounter for screening mammogram for malignant neoplasm of breast; N95.1 Menopausal and female climacteric states; K59.01 Slow transit constipation
CPT/HCPCS: 99397; 99459

== ENCOUNTER 2024-12-15 11:33 | Outpatient (REF) | payer MEDICARE, SELFPAY ==
[2024-12-16 01:58] LABS: Bacterial Vaginosis PCR NEGATIVE (Negative); Candida Group PCR NOT DETECTED (Not Detect); Candida glab krusei PCR NOT DETECTED (Not Detect); Trichomonas vaginalis PCR NOT DETECTED (Not Detect)
[2024-12-16 02:29] LABS: CT PCR NOT DETECTED (Not Detect.); NG PCR NOT DETECTED (Not Detect.)
== END 2024-12-15 11:34 | disposition home or self-care (01) ==
LOC: HO.LNP 11:33
PROVIDERS: PCP Family Medicine; Visit Provider Advanced Practice Midwife
DX: Z01.419 Encounter for gynecological examination (general) (routine) without abnormal findings (principal); N95.1 Menopausal and female climacteric states; K59.01 Slow transit constipation; E11.9 Type 2 diabetes mellitus without complications; Z12.31 Encounter for screening mammogram for malignant neoplasm of breast; Z79.4 Long term (current) use of insulin; Z79.84 Long term (current) use of oral hypoglycemic drugs; Z20.2 Contact with and (suspected) exposure to infections with a predominantly sexual mode of transmission
CPT/HCPCS: 81515; 87491; 87591; 87626; 88175; 99397

== ENCOUNTER 2024-12-23 10:07 | Outpatient (AMB) | payer OTHER, SELFPAY ==
--- NOTE | 2024-12-23 10:08 | MHC.OFFVIS ---
Vital Signs 12/23/24 10:22 Height 5 ft 5 in Weight 175 lb BMI 29.1 BP 158/88 H Blood Pressure Location Rt brachial Position Sitting Pulse 78 Pulse Source Pulse Oximeter Pulse Oximetry (%) 97 Oxygen Delivery Method Room Air Intake Visit Reasons: 3 mo f/u epigastric pain/barium ss Intake Note: Patient 3 mo f/u epigastric pain and bloating, lab/fecal and US results Patient cc: C/O GERD persistence despite active therapies. Pt reports that she had told her PCP about the PPI not being as effective as she was hoping. PCP switched her to omeprazole which she states is more helpful she feels. She also wants to review the US results. Featheredge Machine Operator Required: Yes Featheredge Machine Operator Services: Featheredge Machine Operator Offered & Declined Accompanied by: Son Allergies seafood Allergy (Unknown, Verified 12/23/24 10:08) rash, GI upset losartan Adverse Reaction (Severe, Verified 12/23/24 10:08) blurry vision, muscle pain. Medication List - Last Reconciled 12/23/24 by Fabienne Phillips CNP amitriptyline 50 mg PO BEDTIME 90 days amlodipine 10 mg PO DAILY 90 days baclofen 10 mg PO DAILY 90 days blood pressure monitor Automatic, Digital. Dx: I10. Daily As directed, 999 days/lifetime blood sugar diagnostic (FreeStyle Lite Strips) Test Blood sugar 2 times a day As directed, 90 days blood-glucose meter (FreeStyle Lite Meter kit) DX: E11.9, test blood sugar twice a day, duration 999 days celecoxib 100 mg PO BID cetirizine (Allergy Relief (cetirizine)) 10 mg PO DAILY PRN 90 days clotrimazole-betamethasone 1-0.05 % 1 appl topical BID 2 weeks diclofenac sodium 1% 4 grams topical QID 30 days famotidine 20 mg PO BEDTIME 30 days gabapentin 600 mg PO TID 90 days glipizide ER 5 mg PO DAILY 30 days Grab bar Daily As directed, 999 days hydrochlorothiazide 25 mg PO QAM 90 days hydroxychloroquine 200 mg PO BID ketotifen fumarate 0.025%(0.035%) (Alaway) 1 drp ophthalmic (eye) Q12H PRN 30 days lancets (FreeStyle Lancets) As directed metformin 1 tab (500mg) AM and 1.5 tabs (750mg) PM orally 2 times a day; 90 days miconazole nitrate 2% (Miconazole-7) 1 appful vaginal BEDTIME 7 days miscellaneous medical supply Diabetic shoes. Daily As directed, 999 days/lifetime. Disp #1 pair miscellaneous medical supply Custom Right AFOy, daily As directed. 999 days/lifetime. Disp #1 omeprazole 40 mg PO DAILY Shower Chair (Chair, shower) Daily As directed, 999 days simethicone (Gas Relief (simethicone)) 80 mg PO BID-QID PRN 30 days valsartan 240 mg (1.5 x 160 mg) PO DAILY 90 days HPI HPI 3 mo f/u epigastric pain/barium ss: Details: Patient is a 63-year-old female with PMH of seropositive RA on hydrochloroquine, diabetes, hypertension and GERD. F/u for ongoing symptoms of reflux, bloating and epigastric pain. She accompanied by her son who is translating with this visit. Since last seen in September, pt continues to experience reflux symptoms but perceives better control on omeprazole (instead of prescribed pantoprazole, which was ineffective). Admits mild burning sensation if omeprazole is omitted, denies active reflux on treatment. Ongoing bloating, characteristically after bread, with sensation of stomach ?exploding? and increased burping (not always acid-related, sometimes spontaneous). Bowel pattern are inconsistent: some days bowel movement is easy, other days stools are hard to pass initially then eases, and occasionally diarrhea. Uses hot water to self-manage constipation; has not trialed previously prescribed fiber/laxatives. Denies consistent NSAID use or new GI pain. No interim hospitalizations or urgent care/ER visits. Awaiting scheduled further diagnostics (swallow study). [facility] Medical History (Updated 12/23/24 @ 10:54 by Fabienne Phillips CNP) Fatty liver Diarrhea Dysphagia Acquired right foot drop Chronic abdominal pain Plasma cell disorder Diabetes mellitus GERD (gastroesophageal reflux disease) HTN (hypertension) Elevated rheumatoid factor Surgical History Hx of colonoscopy History of esophagogastroduodenoscopy (EGD) History of hand surgery History of back surgery No pertinent past surgical history Family History Father No problems noted. Mother CVD (cardiovascular disease) Diabetes Sister In good health Son In good health Daughter In good health Social History Housing: Apartment Are you a primary long term acute care registered nurse to a significant other at home: No Do you presently have visiting nurse or other home services: No Alcohol intake: never Patient Tobacco Use Status: Never used Tobacco e-Cigarette/Vaping Use: Never Used Second Hand Smoke Exposure: No service: No Current occupational status: unemployed and disabled Current occupation: right handed Current occupational exposures/hazards: No Cognitive needs: No Hearing needs: No Vision needs: Yes Review of Systems Const Reports as per HPI ENT Reports as per HPI Card Reports as per HPI Resp Reports as per HPI GI Reports as per HPI Reports as per HPI Physical Exam Const General: healthy appearing, no acute distress and well developed Nutritional Appearance: average body habitus Orientation/consciousness: patient oriented x3 HEENT Head: Yes normal to inspection, Yes normocephalic and Yes atraumatic Face and sinus: Yes normal facial exam Eyes General: appearance normal, both eyes and all related structures Neck Neck: Yes normal visual inspection Resp Effort & Inspection: normal respiratory effort, able to speak in complete sentences, no tracheal deviation and symmetric chest movement GI Auscultation: normal bowel sounds Neuro General: patient oriented x3 Gait exam (Neuro): Normal gait present Psych Appearance: grossly normal Mental Status: mental status grossly normal Speech and movement: Normal speech and movement present Affect: normal affect Attitude: cooperative Thought process: Normal thought process present Thought content: Normal thought content present Insight: Good insight present (Psych) Judgement: Good judgement present (Psych) Results Reviewed Results Reviewed: Date of Service: 11/17/24 Procedure(s): US abdomen complete Accession Number(s): [id number] cc: Clifford Cowan MD; Fabienne Phillips CNP~ Reason for Exam: K21.9 - Epigastric pain, elevated liver enzymes CLINICAL HISTORY: K21.9 - Epigastric pain, elevated liver enzymes US abdomen complete Comparison: None provided Findings: The visualized pancreas is normal. The aorta and inferior vena cava are normal caliber. The appearance of the liver suggests fatty infiltration. There is no intrahepatic bile duct dilatation. The common duct is 5.0 mm in diameter. The gallbladder is normal. There is no sonographic Zhang sign. The main portal vein is antegrade. The right kidney is 10.7 cm in length. The left kidney is 11.3 cm in length. The spleen is normal. No ascites. IMPRESSION: 1. Hepatic steatosis. Assessment & Plan Assessment & Plan (1) GERD (gastroesophageal reflux disease): Code(s): K21.9 - Gastro-esophageal reflux disease without esophagitis Category: Medical Qualifiers: Esophagitis presence: esophagitis presence not specified Qualified Code(s): K21.9 - Gastro-esophageal reflux disease without esophagitis Plan: Stable on omeprazole, incomplete response to pantoprazole. Triggers identified; previous H. pylori/celiac negative; US nl except for fatty liver. Additional Testing: - Barium swallow study 01-19-2025?to assess for anatomic pathology (e.g., hernia, strictures). - Upper endoscopy pending procedure date. Medications: - Continue omeprazole as currently effective; reinforce adherence. - Continue famotidine QHS. Lifestyle: - Continue avoidance of reflux triggers (spicy, fatty, fried, acidic, or greasy foods, overeating, late meals). - Encourage weight mgmt, upright posture post-prandial, adequate hydration. - Provided education re: nonpharmacologic management and individualized food triggers. Referrals: - None at this time; PRN GI for persistent/refractory sx. FU: GI f/u in 8 wks post-swallow study or sooner for worsening sx. (2) Constipation: Code(s): K59.00 - Constipation, unspecified Category: Medical Qualifiers: Constipation type: slow transit constipation Qualified Code(s): K59.01 - Slow transit constipation Plan: Ongoing, some days without BM, stools initially hard (type 4, then easier/lax), prefers non-medical mgmt but open to PEG 3350. No evidence of obstructive or organic pathology. Negative celiac serology, fecal calprotectin and previously normal TSH. Additional Testing: - None unless worsening or alarm features emerge. Medications: - Start PEG 3350 (MiraLAX) daily to promote regular, soft BM; tour counselor on proper mixing/use; titrate per response. - May need extened PREP, will determine at follow up Lifestyle: - Encourage dietary fiber (fruits, vegetables, legumes); limit bread/gluten if aggravates sx. - Maintain hydration; regular physical activity. - Provided written/verbally reinforced bowel health education. Referrals: - None at present. FU: GI reassessment 8 wks?track stool frequency/consistency and effect of PEG. (3) Fatty liver: Code(s): K76.0 - Fatty (change of) liver, not elsewhere classified Category: Medical Plan: US evidence; no clinical/lab signs of acute hepatitis or advanced CLD. Additional Testing: - routine monitor of LFTs, ongoing clinical surveillance. Medications: - No specific rx at this time. Lifestyle: - Button Sawyer re: weight reduction, low-fat diet, DM control (if applicable), limit hepatotoxins/EtOH. Referrals: - None unless LFTs worsen. FU: Annual or as indicated. Plan Follow-up in 8 weeks or sooner as needed Time: I spent a total of 34 minutes on the date of encounter which includes: Preparing to see the patient (reviewed previous documentation, test results and medical history) Performing a medically appropriate exam and/or evaluation Ordering medications, tests, and procedures Documenting clinical information in the health record Medications: New polyethylene glycol 3350 (Miralax) Take 17G (one cap full) daily with 8oz of water 17 grams PO DAILY 510 grams 2RF constipation 30 days Coding Level of Care Code Established Pt Est Pt Level 3 (47686) Patient Type Established Diagnoses Gastroesophageal reflux disease, unspecified whether esophagitis present K21.9 Esophagitis presence: esophagitis presence not specified Slow transit constipation K59.01 Constipation type: slow transit constipation Fatty liver K76.0
[2024-12-23 10:22] VITALS: BP 158/88; PULSE 78; O2SAT 97; BMI 29.1
--- OUTSIDE RECORDS SUMMARY | 2024-12-23 11:55 | XMS_ITS | Clinical Summary ---
Author Organization [facility] Address [address] [address] Phone Care Team Providers Care Brassiere Cup Mold Cutter Name Role Phone Prasad Stanley MD Unavailable [phone] Pcp, Unknown Primary Care Provider Unavailabl [...] on patient's age to complete this topic IPV VACCINES Aged Out No longer eligi ble based on patient's age to complete this topic MENINGOCOCCAL VACCINES (ACWY) Aged Out No longer eligible based on patient's age to complete this topic MENINGOCOCCAL VACCINES (B) Aged Out N o longer eligible based on patient's age to complete this topic Medical Devices Not on file Insurance [facility] [place] [address] [place] [address] [place] [address] [place] [address] [place] [address] [place] [address] [address] [address] [facility] A[place] [id number] Care Teams Brassiere Cup Mold Cutter Relationship Specialty Start Date End Date Pcp, Unknown PCP - General 10/03/20 Prasad Stanley MD [address] [place] [address], [address] [place] [address] [email or web address] Insurance Assigned Provider Internal Medicine 09/08/19 Additional Source Comments The information contained in this document represents components of the legal health record. It is not the complete legal health record.[facility]
== END 2024-12-23 10:49 | disposition home or self-care (01) ==
LOC: HO.HGI 10:07
PROVIDERS: PCP Family Medicine; Visit Provider Nurse Practitioner Family
DX: K21.9 Gastro-esophageal reflux disease without esophagitis (principal); K59.01 Slow transit constipation; K76.0 Fatty (change of) liver, not elsewhere classified
CPT/HCPCS: 99213

== ENCOUNTER → 2024-12-23 10:07 | Outpatient (BNVA) | payer MEDICARE, MEDICAID, SELFPAY | PROVIDERS: PCP Family Medicine; Visit Provider Nurse Practitioner Family | DX: K21.9 Gastro-esophageal reflux disease without esophagitis (principal); K59.01 Slow transit constipation; K76.0 Fatty (change of) liver, not elsewhere classified | CPT/HCPCS: 99212 ==

== ENCOUNTER 2025-01-23 08:45 | Outpatient (AMB) | payer MEDICARE, SELFPAY ==
--- NOTE | 2025-01-23 08:49 | MHC.PC.OV ---
Vital Signs 01/23/25 08:59 Height 5 ft 5 in Weight 173 lb 8 oz BMI 28.9 BP 126/74 Blood Pressure Location Rt brachial Position Sitting Respiration 15 Pulse 75 Pulse Source Pulse Oximeter Temp 97.2 F Temp Source Temporal Artery Scan Pulse Oximetry (%) 95 Oxygen Delivery Method Room Air Intake Visit Reasons: f/u chronic conditions Intake Note: Loni presents in the office today for a follow up to diabetes and other chronic conditions. Needs refills of Baclofen, Omeorazole, and eye drops. Mentally Retarded Teacher Required: No Clinical Registered Nurse: Present Accompanied by: Family/Other Is last menstrual period known: No Post menopausal: Yes Patient : No Allergies seafood Allergy (Unknown, Verified 01/23/25 08:55) rash, GI upset losartan Adverse Reaction (Severe, Verified 01/23/25 08:55) blurry vision, muscle pain. Medication List - Last Reconciled 01/23/25 by Clifford Cowan MD amitriptyline 50 mg PO BEDTIME 90 days amlodipine 10 mg PO DAILY 90 days baclofen 10 mg PO DAILY 90 days blood pressure monitor Automatic, Digital. Dx: I10. Daily As directed, 999 days/lifetime blood sugar diagnostic (FreeStyle Lite Strips) Test Blood sugar 2 times a day As directed, 90 days blood-glucose meter (FreeStyle Lite Meter kit) DX: E11.9, test blood sugar twice a day, duration 999 days celecoxib 100 mg PO BID cetirizine (Allergy Relief (cetirizine)) 10 mg PO DAILY PRN 90 days clotrimazole-betamethasone 1-0.05 % 1 appl topical BID 2 weeks diclofenac sodium 1% 4 grams topical QID 30 days famotidine 20 mg PO BEDTIME 30 days gabapentin 600 mg PO TID 90 days glipizide ER 5 mg PO DAILY 30 days Grab bar Daily As directed, 999 days hydrochlorothiazide 25 mg PO QAM 90 days hydroxychloroquine 200 mg PO BID ketotifen fumarate 0.025%(0.035%) (Alaway) 1 drp ophthalmic (eye) Q12H PRN 30 days lancets (FreeStyle Lancets) As directed metformin 1 tab (500mg) AM and 1.5 tabs (750mg) PM orally 2 times a day; 90 days miconazole nitrate 2% (Miconazole-7) 1 appful vaginal BEDTIME 7 days miscellaneous medical supply Diabetic shoes. Daily As directed, 999 days/lifetime. Disp #1 pair miscellaneous medical supply Custom Right AFOy, daily As directed. 999 days/lifetime. Disp #1 omeprazole 40 mg PO DAILY 30 days polyethylene glycol 3350 (Miralax) 17 grams PO DAILY 30 days Shower Chair (Chair, shower) Daily As directed, 999 days simethicone (Gas Relief (simethicone)) 80 mg PO BID-QID PRN 30 days valsartan 240 mg (1.5 x 160 mg) PO DAILY 90 days Tobacco use date assessed: 07/14/24 Dental Screening Dental Screen Date: 01/23/25 Did you have a dental visit in the last 12 months?: Yes Did you have a dental problem in the last 6 months where you did not have access to dental care?: No Was dental information given to patient?: Patient has dentist HPI f/u chronic conditions HPI Details 64 y/o female presents to f/u chronic conditions. BP today 126/74, 75p. She is on valsartan 240mg daily, hydrochlorothiazide 25mg, amlodipine 10mg daily. Hx of rheumatoid arthritis, back pain, bilateral knee pain. A1c today 6.0%. She is on metformin, glipizide. HPI Comments History of Present Illness Details Documentation assistance for Clifford Cowan MD, was provided by Michael Kohli, Front Office Coordinator on 01/23/2025 at 9:08 AM EST. I, Dr. Cowan, have read, observed, and verified documentation. [facility] Medical History (Updated 12/29/24 @ 16:49 by Carly Hollingsworth CNM) Fatty liver Diarrhea Dysphagia Acquired right foot drop Chronic abdominal pain Plasma cell disorder Diabetes mellitus GERD (gastroesophageal reflux disease) HTN (hypertension) Elevated rheumatoid factor Surgical History Hx of colonoscopy History of esophagogastroduodenoscopy (EGD) History of hand surgery History of back surgery No pertinent past surgical history Family History Father No problems noted. Mother CVD (cardiovascular disease) Diabetes Sister In good health Son In good health Daughter In good health Social History Housing: Apartment Are you a primary care manager to a significant other at home: No Do you presently have visiting nurse or other home services: No Alcohol intake: never Patient Tobacco Use Status: Never used Tobacco e-Cigarette/Vaping Use: Never Used Second Hand Smoke Exposure: No service: No Current occupational status: unemployed and disabled Current occupation: right handed Current occupational exposures/hazards: No Cognitive needs: No Hearing needs: No Vision needs: Yes Questionnaire Thrive Questionnaire Date Thrive assessed: 06/08/24 I am a: Parent/Caregiver What is your living situation today?: I have a place to live, but I am worried about losing it in the future Within the past 12 months, did the food you bought not last and you didn't have the money to get more?: I choose not to answer this question Within the past 12 months, did you worry whether your food would run out before you got money to buy more?: Sometimes True Do you have trouble paying for medicines?: I choose not to answer this question Do you have trouble getting transportation to medical appointments?: Yes Do you have trouble paying your heating and electricity bill?: Yes Do you have trouble taking care of your child, family member or friend?: I choose not to answer this question Do you have trouble with day-to-day activities such as bathing, preparing meals, shopping, managing finances, etc.?: Yes Are you currently unemployed and looking for a job?: No Are you interested in more education?: No Currently or been in a relationship where the following occur: I choose not to answer THRIVE Score: 4 ALEXA-7 AMB Questionnaire ALEXA-7 Date ALEXA - 7 assessed: 06/08/24 Source: Developed by Drs. Kang West, Rebecca Griffith, Efrain Allison and colleagues, with an educational lynne from [employer]. Review of Systems Const Denies chills, Denies fatigue, Denies fever(s), Denies headache(s) and Denies weakness ENT Denies dizziness and Denies headache(s) Card Denies dyspnea Resp Denies cough, Denies dyspnea, Denies wheezing and Denies other (shortness of breath) Musc Denies numbness and Denies tingling Neuro Denies dizziness, Denies headache(s), Denies numbness, Denies tingling and Denies weakness Psych Denies anxiety and Denies depression Endo Denies fatigue Aller/Immun Denies wheezing Physical exam (Primary Care) Vital Signs: Last Vital Signs Temp 97.2 F 01/23/25 08:59 Pulse 75 01/23/25 08:59 Resp 15 01/23/25 08:59 BP 126/74 01/23/25 08:59 Pulse Ox 95 01/23/25 08:59 Oxygen Delivery Method Room Air 01/23/25 08:59 BMI result Body Mass Index 28.9 Tobacco/Smoking Status: Tobacco use Status Tobacco use date assessed 07/14/24 01/23/25 08:52 Patient Tobacco Use Status Never used Tobacco 01/23/25 08:52 e-Cigarette/Vaping Use Never Used 01/23/25 08:52 Thrive Assessment: Date of Thrive Assessment Date Thrive assessed 06/08/24 01/23/25 08:52 Currently or been in a relationship where the following occur: I choose not to answer Const General: well developed; No acute distress Nutritional Appearance: well nourished Orientation/consciousness: patient oriented x3 HENMT Head: Yes normocephalic and Yes atraumatic Eyes General: appearance normal, both eyes and all related structures Pupils: Equal, round and reactive pupils present EOM: EOMs intact bilaterally Resp Effort & Inspection: normal respiratory effort Neuro General: patient oriented x3 and gait normal Cranial nerves: Yes Equal, round and reactive pupils present Psych Affect: normal affect Results AMB Hemoglobin A1c AMB Hemoglobin A1c 6.0 % Last Edit by Hyacinth Diaz CMA on 01/23/25 09:06 Coding Level of Care Code Est Pt Level 4 (25115) Diagnoses Rheumatoid arthritis involving multiple sites with positive rheumatoid factor M05.79 Rheumatoid arthritis location: multiple sites Rheumatoid factor presence: with rheumatoid factor Hypertension, essential I10 Low back pain M54.5 Primary osteoarthritis of both knees M17.0 Osteoarthritis type: primary Lumbar spinal stenosis M48.061 Lumbar radiculopathy M54.16 Diabetes type 2, controlled E11.9 Assessment & Plan Assessment & Plan (1) Rheumatoid arthritis: Comment: ++RF -ve CCP dx 02/2023 HCQ 05/2023 Code(s): M06.9 - Rheumatoid arthritis, unspecified Category: Medical Qualifiers: Rheumatoid arthritis location: multiple sites Rheumatoid factor presence: with rheumatoid factor Qualified Code(s): M05.79 - Rheumatoid arthritis with rheumatoid factor of multiple sites without organ or systems involvement Plan: Follow-up with rheumatology as recommended (2) Hypertension, essential: Code(s): I10 - Essential (primary) hypertension Category: Medical Plan: Blood pressure is controlled today. Some fluctuations with pain Will continue to work at underlying causes-see below Continue medications as prescribed and avoid salt/sodium in diet (3) Low back pain: Code(s): M54.5 - Low back pain Category: Medical Plan: Ongoing low back pain MRI showed worsening spinal stenosis and foraminal stenoses Had referred her to neuro spine and they recommended either fusion, or injection therapy as a temporizing measure Patient declined both of these. Reviewed injection therapy with patient and family. They can reconsider at any time. Will give her a short course of prednisone and she can continue celecoxib (4) Osteoarthritis of knees, bilateral: Code(s): M17.0 - Bilateral primary osteoarthritis of knee Category: Medical Qualifiers: Osteoarthritis type: primary Qualified Code(s): M17.0 - Bilateral primary osteoarthritis of knee Plan: Followed by rheumatology in ortho She is on hydroxychloroquine for rheumatoid arthritis Follow-up with rheumatology as recommended (5) Lumbar spinal stenosis: Code(s): M48.061 - Spinal stenosis, lumbar region without neurogenic claudication Category: Medical Plan: As above (6) Lumbar radiculopathy: Code(s): M54.16 - Radiculopathy, lumbar region Category: Medical Plan: As above (7) Diabetes type 2, controlled: Code(s): E11.9 - Type 2 diabetes mellitus without complications Category: Medical Plan: A1c 6.0%. Good control. Goal is less than 7% Continue current medications Orders: Orders AMB Hemoglobin A1c Today E11.9 - Type 2 diabetes mellitus without complications Medications: New prednisone 20 mg PO DAILY 4 tabs 0RF 4 days Changed From omeprazole 40 mg PO DAILY To omeprazole 40 mg PO DAILY 30 caps 3RF 30 days From celecoxib 100 mg PO BID To celecoxib 100 mg PO BID 60 caps 3RF 30 days
[2025-01-23 08:59] VITALS: BP 126/74; PULSE 75; RESP 15; TEMP 36.2; O2SAT 95; BMI 28.9
--- OUTSIDE RECORDS SUMMARY | 2025-01-23 11:19 | XMS_ITS | Clinical Summary ---
Author Organization [facility] Address [address] [address] Phone Care Team Providers Care Telesales Supervisor Name Role Phone Prasad Stanley MD Unavailable [phone] Pcp, Unknown Primary Care Provider Unavailabl [...] topic Medical Devices Not on file Insurance [facility] [place] [address] [place] [address] [address] [place] [address] [place] [address] [place] [address] [address] [place] [address] [address] [address] [place] [address] [address] [address] [place] [address] A[place] [facility] ACO Care Teams Telesales Supervisor Relationship Specialty Start Date End Date Pcp, Unknown PCP - General 10/03/20 Prasad Stanley MD [address] [place] [address], [address] [place] [address] [email or web address] Insurance Assigned Provider Internal Medicine 09/08/19 Additional Source Comments The information contained in this document represents components of the legal health record. It is not the complete legal health record[facility]
== END 2025-01-23 09:54 | disposition home or self-care (01) ==
LOC: HO.HMCFM 08:46
PROVIDERS: PCP Family Medicine; Visit Provider Family Medicine
DX: E11.9 Type 2 diabetes mellitus without complications (principal); M05.79 Rheumatoid arthritis with rheumatoid factor of multiple sites without organ or systems involvement; I10 Essential (primary) hypertension; M54.50 Low back pain, unspecified; M17.0 Bilateral primary osteoarthritis of knee; M48.061 Spinal stenosis, lumbar region without neurogenic claudication; M54.16 Radiculopathy, lumbar region

== ENCOUNTER → 2025-01-23 08:45 | Outpatient (BNVA) | payer MEDICARE, SELFPAY | PROVIDERS: PCP Family Medicine; Visit Provider Family Medicine | DX: M05.79 Rheumatoid arthritis with rheumatoid factor of multiple sites without organ or systems involvement (principal); M54.50 Low back pain, unspecified; M17.0 Bilateral primary osteoarthritis of knee; M48.061 Spinal stenosis, lumbar region without neurogenic claudication; M54.16 Radiculopathy, lumbar region; E11.9 Type 2 diabetes mellitus without complications; I10 Essential (primary) hypertension | CPT/HCPCS: 83036; 99212 ==